=== PATIENT | male | born 1965 | race Caucasian/White ===

== ENCOUNTER → 2016-11-19 | Outpatient (CLI) | payer BC, OTHER ==
[~2016-11-19] MED LIST: ACET-1256 PO; LISI-729 PO; NAPR-1169 PO; OPTIRAY 320 IV PRN; SALM50AE2 INH
[2016-11-19 14:43] LABS: BASO % 0.6 %; BASO ABS # 0.05 K/uL (0-0.2); COMPLETE YES; HEMATOCRIT 42.3 % (42-52); IG% 0.3 %; LYMPH % 21.3 %; MEAN CORPUSCULAR HEMOGLOBIN 32.7 pg (25-34); MEAN CORPUSCULAR HGB CONC 35.9 g/dl (32-36); MEAN PLATELET VOLUME 9.5 fL (7.4-10.4); MONO % 7.6 %; NEUT % 68.2 %; PLATELET COUNT 247 K/uL (130-400); RED BLOOD COUNT 4.65 M/uL (4.7-6.1); WHITE BLOOD COUNT 8.91 K/uL (4.8-10.8)
[2016-11-19 15:08] LABS: ALT/SGPT 48 U/L (12-78); AST/SGOT 31 U/L (15-37); BLOOD UREA NITROGEN 16 mg/dl (7-18); BUN/CREATININE RATIO 14.4 (10-20); CALCIUM 8.7 mg/dl (8.5-10.1); CARBON DIOXIDE 30 mmol/L (21-32); CHLORIDE 104 mmol/L (98-107); GLUCOSE 104 mg/dl (70-99); POTASSIUM 3.7 mmol/L (3.5-5.1); SODIUM 140 mmol/L (136-145)
[2016-11-19 15:11] LABS: ALB/GLOB RATIO 1.3 (0.9-2); ALKALINE PHOSPHATASE 81 U/L (45-117)
--- NOTE | 2016-11-19 17:15 | DIAGNOSTIC IMAGING REPORT ---
CT SCAN OF THE ABDOMEN AND PELVIS WITH IV CONTRAST CLINICAL HISTORY: Hematochezia. COMPARISON STUDY: Chest CT dated 02/28/2011. TECHNIQUE: Following the IV administration of 94 cc of Optiray 320, CT scan of the abdomen and pelvis is performed from the lung bases to the proximal femora. Images are reviewed in the axial, sagittal, and coronal planes. IV contrast was administered without complication. Automated dose control exposure was utilized. CT DOSE: 499.89 mGy.cm FINDINGS: Lung bases: The heart is mildly enlarged and without pericardial effusion. Scarring and cyst rotation is noted at the left lung base. The lung bases are otherwise clear. There is a small hiatal hernia. Liver: The contrast-enhanced liver is enlarged, measuring 19.4 cm in length. The liver demonstrates diffusely diminished attenuation consistent with hepatic steatosis There is no intrahepatic biliary ductal dilatation. The hepatic veins and portal veins are patent. Gallbladder: Unremarkable. Spleen: Normal in size and attenuation. Pancreas: Unremarkable. Adrenal glands: Unremarkable. Kidneys: The contrast enhanced kidneys are normal in size and without hydronephrosis. The kidneys enhance symmetrically. There is a 5 mm nonobstructing calculus in the lower pole of the right kidney. Abdominal vasculature: The abdominal aorta is normal in course and caliber. Bowel: There is a long segment of wall thickening and edema identified involving the distal transverse colon and the descending colon. The appearance is typical for a nonspecific colitis. There is mild pericolonic inflammation and trace fluid. No bowel obstruction is seen. The appendix is not identified and reported surgically absent. Peritoneum: There is no intraperitoneal free air. There is trace free fluid in the pelvis. Lymphadenopathy: None. Pelvic viscera: The prostate gland is diminutive and heterogeneous, and contains coarse calcifications. The bladder is partially decompressed and grossly unremarkable. Skeletal structures: No lytic or blastic lesions are seen. There is mild lumbosacral spondylosis. IMPRESSION: 1. Findings are consistent with a nonspecific colitis of the left colon. This is likely on an infectious or inflammatory basis in this age group. 2. There is trace free fluid in the left paracolic gutter and the pelvis. 3. Hepatomegaly and hepatic steatosis. 4. Mild cardiomegaly. 5. Nonobstructing right renal calculus. 6. Additional changes as above. Electronically signed by: Sarwat Albarado M.D. 11/19/2016 5:14 PM Dictated Date/Time: 11/19/2016 5:08 PM
== END | disposition home or self-care (01) ==
LOC: C.CTS 14:06
PROVIDERS: ATTEND Nurse Practitioner
DX: K62.5 Hemorrhage of anus and rectum (principal); K76.0 Fatty (change of) liver, not elsewhere classified; N20.0 Calculus of kidney; R93.3 Abnormal findings on diagnostic imaging of other parts of digestive tract

== ENCOUNTER → 2017-01-16 | Day surgery (SDC) | payer BC, OTHER ==
[2017-01-10 14:56] VITALS: Ht 188 cm; Wt 93.2 kg
[~2017-01-16] VITALS: Ht 188 cm; Wt 93.2 kg
[~2017-01-16] MED LIST changes: -NAPR-1169 PO; -OPTIRAY 320 IV PRN; +SODIUM CHLORIDE 0.9% 500ML 500 ML IV ONE
[2017-01-16 11:27] VITALS: TEMP 36.8
--- NOTE | 2017-01-16 11:47 | Endo History and Physical ---
History & Physical Date of Service: Jan 16, 2017. Chief Complaint: Colitis Referring Physician: Lakeshia History of Present Illness 51 yo CM who presents for colonoscopy secondary to colitis. Past Medical History Asthma, Hypertension Past Surgical History Hx Cardiac Surgery: No Hx Internal Defibrillator: No Hx Pacemaker: No Hx Abdominal Surgery: Yes (APPENDECTOMY) Hx of Implantable Prosthesis: No Hx Post-Op Nausea and Vomiting: Yes (WITH BACK SURG 06/2016-[facility]) Hx Cancer Surgery: No Hx Thoracic Surgery: No Hx Orthopedic: Yes (L KNEE SCOPE,LUMBAR DISECTOMY) Hx Urinary Tract Surgery: Yes (SURG FOR UNDESCENDED TESTICLE AGE 8) Family History Polyp Social History Smoking Status: Never Smoker Hx Substance Use: No Hx Alcohol Use: No Allergies Coded Allergies: Aspirin (Verified Allergy, Unknown, SHORTNESS OF BREATH, 01/16/17) Codeine (Verified Allergy, Unknown, SHORTNESS OF BREATH, 01/16/17) Penicillins (Verified Allergy, Unknown, SHORTNESS OF BREATH, 01/16/17) Current Medications Reported Home Medications Medications Dose Route/Sig Max Daily Dose Days Date Category Tylenol (Acetaminophen) 500 Mg Tab 1,000 Mg PO PRN 01/10/17 Reported Zestril (Lisinopril) 5 Mg Tab 10 Mg PO QAM 09/26/15 Reported Serevent Diskus Inh (Salmeterol Xinafoate) Inh 1 Puff INH BID 02/28/11 Reported Vital Signs Weight (Kilograms): 93.18 Height (Feet): 6 Height (Inches): 2 Date Time Temp Pulse Resp B/P (MAP) Pulse Ox O2 Delivery O2 Flow Rate FiO2 01/16/17 11:27 36.8 64 18 134/86 (102) 96 Room Air Physical Exam General Appearance: WD/WN, no apparent distress Respiratory/Chest: Auscultation: breath sounds normal Cardiovascular: Heart Auscultation: RRR Abdomen: Bowel Sounds: normal Inspection & Palpation: soft, non-distended, no tenderness, guarding & rebound Assessment and Plan Assessment: 51 yo CM who presents for colonoscopy secondary to colitis. Plan: Proceed with colonoscopy.
--- NOTE | 2017-01-16 12:46 | Discharge Instructions ---
Endoscopy Patient Instructions Date / Procedure(s) Performed Jan 16, 2017. Colonoscopy Allergy Information Coded Allergies: Aspirin (Verified Allergy, Unknown, SHORTNESS OF BREATH, 01/16/17) Codeine (Verified Allergy, Unknown, SHORTNESS OF BREATH, 01/16/17) Penicillins (Verified Allergy, Unknown, SHORTNESS OF BREATH, 01/16/17) Discharge Date / Findings Jan 16, 2017. Internal hemorrhoids Medication Instructions OK to resume all medications today as prescribed Reported Home Medications Medications Dose Route/Sig Max Daily Dose Days Date Category Tylenol (Acetaminophen) 500 Mg Tab 1,000 Mg PO PRN 01/10/17 Reported Zestril (Lisinopril) 5 Mg Tab 10 Mg PO QAM 09/26/15 Reported Serevent Diskus Inh (Salmeterol Xinafoate) Inh 1 Puff INH BID 02/28/11 Reported Provider Instructions Activity Restrictions - No exercising or heavy lifting for 24 hours. - Do not drink alcohol the day of the procedure. - Do not drive a car or operate machinery until the day after the procedure. - Do not make any important decisions or sign important papers in 24 hours after the procedure. Following Day: - Return to full activity which may include returning to work/school. Diet Start your diet with liquids and light foods (jello, soup, juice, toast). Then eat your usual diet if not nauseated. Treatment For Common After Affects For mild abdominal pain, bloating, or excessive gas: - Rest - Eat lightly - Lie on right side Follow-Up Information Follow-up with Lakeshia as scheduled Anesthesia Information What You Should Know You have had a procedure that required some medicine to reduce anxiety and discomfort. This treatment is called moderate sedation. After receiving the treatment, you may be sleepy, but you will be able to breathe on your own. The effects of the treatment may last for several hours. Follow these instructions along with Activity/Diet recommendations noted above: * Do NOT do anything where dizziness or clumsiness would be dangerous. * Rest quietly at home today, then you can be up and about tomorrow. * Have a responsible person stay with you the rest of today. * You may have had an I.V. today. If so, you may take the dressing off later today. Recommendations Call your doctor if: * Trouble breathing * Continuous vomiting for more than 24 hours * Temperature above 101 degrees * Severe abdominal pain or bloating * Pain not relieved by pain medicine ordered * There is increased drainage or redness from any incision * A large amount of rectal bleeding greater than 2-3 tablespoons. (If you had a polyp/s removed or have hemorrhoids, a small amount of blood - from the rectum is to be expected.) * You have any unanswered questions or concerns. IN THE EVENT OF A SERIOUS EMERGENCY, GO TO THE NEAREST EMERGENCY ROOM Your discharge instructions were prepared by provider Max Garrido. Patient Instructions Signature Page Josh Payton Patient (or Guardian) Signature/Date: I have read and understand the instructions given to me by my caregivers. Caregiver/RN/Doctor Signature/Date: The above-named patient and/or guardian has received patient instructions on this date. + Original Patient Signature Page (only) stays with chart. Please make copy for patient.
--- NOTE | 2017-01-16 12:48 | Anesthesiology Progress Note ---
Anesthesia Post Op Note Date & Time Jan 16, 2017 at 12:47 Vital Signs Pain Intensity: 0 Vital Signs Past 12 Hours Date Time Temp Pulse Resp B/P (MAP) Pulse Ox O2 Delivery O2 Flow Rate FiO2 01/16/17 11:27 36.8 64 18 134/86 (102) 96 Room Air Notes Mental Status: alert / awake / arousable, participated in evaluation Pt Amnestic to Procedure: Yes Nausea / Vomiting: adequately controlled Pain: adequately controlled Airway Patency, RR, SpO2: stable & adequate BP & HR: stable & adequate Hydration State: stable & adequate Anesthetic Complications: no major complications apparent
[2017-01-16 13:15] VITALS: BP 127/75; PULSE 57; O2SAT 97
--- NOTE | 2017-01-16 13:15 | GI REPORT ---
Procedure Date: 01/16/2017 12:20 PM Procedure: Colonoscopy Indications: Follow-up of colitis Medicines: Monitored Anesthesia Care Complications: No immediate complications. Estimated Blood Loss: Estimated blood loss: none. Procedure: Pre-Anesthesia Assessment: - Prior to the procedure, a History and Physical was performed, and patient medications and allergies were reviewed. The patient's tolerance of previous anesthesia was also reviewed. The risks and benefits of the procedure and the sedation options and risks were discussed with the patient. All questions were answered, and informed consent was obtained. Prior Anticoagulants: The patient has taken no previous anticoagulant or antiplatelet agents. ASA Grade Assessment: II - A patient with mild systemic disease. After reviewing the risks and benefits, the patient was deemed in satisfactory condition to undergo the procedure. After I obtained informed consent, the scope was passed under direct vision. Throughout the procedure, the patient's blood pressure, pulse, and oxygen saturations were monitored continuously. The scope was introduced through the anus and advanced to the terminal ileum. The colonoscopy was performed without difficulty. The patient tolerated the procedure well. The quality of the bowel preparation was good. The terminal ileum, ileocecal valve, appendiceal orifice, and rectum were photographed. Findings: Non-bleeding internal hemorrhoids were found during retroflexion. The hemorrhoids were small. The exam was otherwise without abnormality. Impression: - Non-bleeding internal hemorrhoids. - The examination was otherwise normal. - No specimens collected. Recommendation: - Resume previous diet. - Continue present medications. - Repeat colonoscopy in 10 years for surveillance. - Return to primary care physician as previously scheduled. Max Garrido DO 01/16/2017 1:14:17 PM This report has been signed electronically. Note Initiated On: 01/16/2017 12:20 PM I attest to the content of the Intraoperative Record and orders documented therein, exceptions below
== END | disposition home or self-care (01) ==
LOC: C.GI 10:45
PROVIDERS: ATTEND Internal Medicine
DX: Z09 Encounter for follow-up examination after completed treatment for conditions other than malignant neoplasm (principal); K52.9 Noninfective gastroenteritis and colitis, unspecified; K64.8 Other hemorrhoids; Z83.71 Family history of colonic polyps; J45.909 Unspecified asthma, uncomplicated; I10 Essential (primary) hypertension; Z88.5 Allergy status to narcotic agent; Z88.0 Allergy status to penicillin; Z90.89 Acquired absence of other organs; Z98.890 Other specified postprocedural states; Z68.26 Body mass index [BMI] 26.0-26.9, adult

== ENCOUNTER → 2017-07-29 | Outpatient (CLI) | payer BC, OTHER ==
[~2017-07-29] MED LIST changes: -SODIUM CHLORIDE 0.9% 500ML 500 ML IV ONE
== END | disposition home or self-care (01) ==
LOC: C.LABBFT 08:41
PROVIDERS: ATTEND Internal Medicine
DX: T14.8XXA Other injury of unspecified body region, initial encounter (principal); W57.XXXA Bitten or stung by nonvenomous insect and other nonvenomous arthropods, initial encounter

== ENCOUNTER 2024-08-29 08:01 | Inpatient (IN) ==
--- OUTSIDE RECORDS SUMMARY | 2024-08-29 08:05 | External Medical Summary | Summary of Care ---
Author Name Unknown Organization [facility] Address [address] [place] [address] Phone [phone] Care Team Providers Care Emergency Department Director Name Role Phone Lakeshia GILMORE MD, Josh Belle Primary Care Pr ovider Encounter Details Date Type Department Care Team (Latest Contact Info) Description 08/13/2024 9:42 AM EST - 08/13/2024 11:59 PM EST Hospital Encounter Radiology Film File [address] [place] [address] Arrived Discharge Disposition: Home - Self Care Allergies Active Allergy Reactions Criticality Noted Date Comments Codeine Anaphylaxis High 02/18/2020 Penicillins Anaphylaxis High 02/18/2020 documented as of this encounter (statuses as of 08/14/2024) Medications salmeterol xinafoate (SEREVENT DISKUS) 50 MCG/DOSE diskus inhaler Inhale 1 Puff by mouth in the morning and 1 Puff before bedtime. Active acetaminophen (TYLENOL) 500 MG Tablet Take 1 Tablet by mouth every 6 hours as needed. Active Naproxen 500 MG Oral Tablet (NAPROSYN) TAKE 1 TAB BY MOUTH 2 TIMES A DAY WITH FOOD 60 Tab 0 Active Additional Information Patient not taking.Reported on 08/13/2024 predniSONE 10 MG Oral Tablet (Deltasone) Take 4 tablets a day for 3 days. Then 3 tablets a day for 3 days. Then 2 tablets a day for 3 days. Then 1 tablet a day for 3 days. 30 Tab 1 Active Additional Information Patient not taking.Reported on 08/13/2024 Rosuvastatin Calcium 10 MG Oral Tablet (Crestor) Take 1 Tablet by mouth. Active Olmesartan Medoxomil 5 MG Oral Tablet (Benicar) 4 Active documented as of this encounter (statuses as of 08/14/2024) Active Problems No known active problems documented as of this encounter (statuses as of 08/14/2024) Social History Tobacco Use Types Packs/Day Years Used Date Smoking Tobacco: Never Smokeless Tobacco: Never Alcohol Use Standard Drinks/Week Comments Not Currently 0 (1 standard drink = 0.6 oz pur e alcohol) Sex and Gender Information Value Date Recorded Sex Assigned at Not on file Legal Sex Male 5:02 AM EST Gender Identity Not on file Sexual Orientation Not on file documented as of this encounter Plan of Treatment Upcoming Encounters Date Type Department Care Team (Late st Contact Info) Description 06/15/2025 8:20 AM EST Office Visit Dermatology, Abhay Galvan [address] [id number] Enedelia Santana PA-C [address] [address] Health Maintenance Due Date Last Done Comments Lipid Panel 1965 Depression Screening 1977 HIV Screening 02/04/1980 Hepatitis C Screening 1983 DTap/Tdap Vaccines (1 - Tdap) 02/04/1984 Hepatitis B Vaccine (1 of 3 - 19+ 3-dose series) 02/04/1984 Cologuard 2010 Colonoscopy 2010 Colorectal Cancer Screening 2010 Fecal Occult Blood Test 2010 Sigmoidoscopy 2010 Pneumococcal Vaccine: 50+ Years (2 of 2 - PCV) 2015 05/28/2011 Zoster Vaccines (1 of 2) 2015 COVID-19 Vaccine (3 - 2023- season) 2024 11/03/2020, 10/13/2020 Influenza Vaccine (FLU shot) (#1) 2024 04/25/2018, 05/27/2017, 05/07/2016, Additional history exists HPV (Gardasil) Vaccine Aged Out No lo nger eligible based on patient's age to complete this topic MENINGOCOCCAL (MENACTRA/MENVEO) Aged Out No longer eligible based on patient's age to complete this topic documented as of this encounter Medical Devices Not on filedocumented as of this encounter Procedures Procedure Name Priority Date/Time Associated Diagnosis Comments DERM EXAM - DERM (IMAGES ONLY, NO REPORT) Routine 08/13/2024 9:42 AM EST Hx of nonmelanoma skin cancer Seborrheic keratosis documented in this encounter Results * DERM EXAM - DERM (IMAGES ONLY, NO REPORT) (08/13/2024 9:42 AM EST) Narrative Scheduling, Silent - 08/13/2024 9:42 AM EST This is an imaging study not interpreted or resulted by a [facility] or [facility] contracted radiologist. Enedelia Santana PA-C RADIOLOGY (RAD GENERAL) Final Result documented in this encounter Care Teams Emergency Department Director Relationship Specialty Start Date End Date Josh Asher III, MD [address] [place] [address] PCP - General Internal Medicine 02/18/20 documented as of this encounter
--- OUTSIDE RECORDS SUMMARY | 2024-08-29 08:05 | External Medical Summary | Summary of Care ---
Author Name Unknown Organization [facility] Address [address] [place] [address] Phone [phone] Care Team Providers Care Assurance Officer Name Role Phone Lakeshia GILMORE MD, Josh Belle Primary Care Pr ovider Reason for Referral * Evaluate & Treat - Unlimited Visits (Within 24 hrs (call dept; emergent)) - Authorized Specialty Diagnoses / Procedures Referred By Stanton israel Referred To Contact Dermatology Diagnoses Basal cell carcinoma of skin, unspecified Ashly Cloud PA-C [address] [address] Phone: tel: fax: Referral ID Status Reason Start Date Expiration Date Visits Requested Visits Authorized [id number] Authorized Specialty Services Required 08/10/[phone] Question Answer Referral Priority Within 24 hrs (call dept; emergent) Where should this appointment be scheduled? [facility] Are you referring the patient for Mohs Surgery and have a current positive skin cancer biopsy result? No - Unknown What is the reason for the patient referral? Rash/Skin Check/Eval of Lesion or Mole Comments BCC of skin Encounter Details Date Type Department Care Team (Late st Contact Info) Description 08/10/2024 Orders Only [facility] [place], [place] [address] [place] [address] Ext *DO NOT REMOVE THIS DEPARTMENT* [place] [id number] Request, External Referral Basal cell carcinoma of skin, unspecified* Allergies Active Allergy Reactions Criticality Noted Date Comments Codeine Anaphylaxis High 02/18/2020 Penicillins Anaphylaxis High 02/18/2020 documented as of this encounter (statuses as of 08/10/2024) Medications salmeterol xinafoate (SEREVENT DISKUS) 50 MCG/DOSE diskus inhaler Inhale 1 Puff by mouth 2 times a day. Active acetaminophen (TYLENOL) 500 MG Tablet Take 500 mg by mouth every 6 hours as needed. Active Naproxen 500 MG Oral Tablet (NAPROSYN) TAKE 1 TAB BY MOUTH 2 TIMES A DAY WITH FOOD 60 Tab 04/11/2020 Active predniSONE 10 MG Oral Tablet (Deltasone) Take 4 tablets a day for 3 days. Then 3 tablets a day for 3 days. Then 2 tablets a day for 3 days. Then 1 tablet a day for 3 days. 30 Tab 09/27/2020 Active documented as of this encounter (statuses as of 08/10/2024) Active Problems No known active problems documented as of this encounter (statuses as of 08/10/2024) Social History Tobacco Use Types Packs/Day Years Used Date Smoking Tobacco: Never Smokeless Tobacco: Never Alcohol Use Standard Drinks/Week Comments Not Currently 0 (1 standard drink = 0.6 oz pur e alcohol) Utilities Answer Date Recorded Do you have trouble paying y our heating, water, or electric bill? (Adult - for ages 18 years and over) Not on file 01/07/2024 Is your family able to pay t he heat, water, or electric bill? (Household - for ages 0-17 years) Not on file 01/07/2024 Does your family have access to good internet? (Household - for ages 0-17 years) Not on file 01/07/2024 Social Connections Answer Date Recorded How often do you feel lonely or isolated from those around you? (Adult - for ages 18 years and over) Not on file 01/07/2024 Sex and Gender Information Value Date Recorded Sex Assigned at Not on file Legal Sex Male 5:02 AM EST Gender Identity Not on file Sexual Orientation Not on file documented as of this encounter Plan of Treatment Scheduled Referrals Name Type Priority Associated Diagnoses Orde r Schedule DERMATOLOGY REFERRAL OP Referral Within 24 hrs (call dept; emergent) Basal cell carcinoma of skin, unspecified Ordered: 08/10/2024 Health Maintenance Due Date Last Done Comments [...] Vaccines (1 of 2) 2015 COVID-19 Vaccine (1 - season) 2024 Influenza Vaccine (FLU shot) (#1) 2024 04/25/2018, 05/27/2017, 05/07/2016, Additional history exists HPV (Gardasil) Vaccine Aged Out No lo nger eligible based on patient's age to complete this topic MENINGOCOCCAL (MENACTRA/MENVEO) Aged Out No longer eligible based on patient's age to complete this topic documented as of this encounter Medical Devices Not on filedocumented as of this encounter Visit Diagnoses Diagnosis Basal cell carcinoma of skin, unspecified- Primary documented in this encounter Care Teams Assurance Officer Relationship Specialty Start Date End Date Josh Asher III, MD PCP - General Internal Medicine 02/18/20 documented as of this encounter
--- OUTSIDE RECORDS SUMMARY | 2024-08-29 08:05 | External Medical Summary | Summary of Care ---
Author Name Unknown Organization [facility] Address [address] [facility] [address] Phone [phone] Care Team Providers Care Engagement Liaison Name Role Phone Lakeshia GILMORE MD, Josh Belle Primary Care Pr ovider Reason for Visit * Reason Comments NEW PATIENT HX BCC behind left e ar - was to have Mohs but did not have it yet? * Evaluate & Treat - Unlimited Visits (Within 24 hrs (call dept; emergent)) - Authorized Specialty Diagnoses / Procedures Referred By Stanton israel Referred To Contact Dermatology Diagnoses Basal cell carcinoma of skin, unspecified Shane Cloud PA-C [address] [facility] [address] [place] [address] Phone: tel: fax: Referral ID Status Reason Start Date Expiration Date Visits Requested Visits Authorized [id number] Authorized Specialty Services Required 08/10/[id number] Encounter Details Date Type Department Care Team (Late st Contact Info) Description 08/13/2024 9:20 AM EST Office Visit Dermatology, Abhay Galvan [address] [facility] [address] [place] [id number] Enedelia Santana PA-C [address] [place] [phone] Hx of nonmelanoma skin cancer*; Seborrheic keratosis Allergies Active Allergy Reactions Criticality Noted Date Comments Codeine Anaphylaxis High 02/18/2020 Penicillins Anaphylaxis High 02/18/2020 documented as of this encounter (statuses as of 08/13/2024) Medications salmeterol xinafoate (SEREVENT DISKUS) 50 MCG/DOSE [...] as of this encounter (statuses as of 08/13/2024) Active Problems No known active problems documented as of this encounter (statuses as of 08/13/2024) Social History Tobacco Use Types Packs/Day Years [...] on file documented as of this encounter Progress Notes * Enedelia Santana PA-C - 08/13/2024 9:16 AM EST SUBJECTIVE: CC: HX BCC behind left ear - was to have Mohs but did not have it yet? HPI: Josh Payton is a 59 year old male seen at the request of Shane Cloud PA-C for evaluation and treatment of BCC behind L ear. Referred by [facility]NT [facility]. 06/23/2024 excision post auricular lesion with Dr. Osborn. Per note pathology revealed nodulocystic and micronodular BCC extending to inked lateral margin. He healed beautifully. He has no other concerns today but agreeable to waist up skin exam. DERMATOLOGIC HISTORY: Reviewed previous office notes and relevant surgical pathology: History of skin disorders: Hx poroma L neck excision 02/2024 ENT History of skin cancer: Hx BCC L post auricular region- Excision ENT with +lateral margin 06/2024 REVIEW OF SYSTEMS: See HPI- all other findings negative Constitutional: (-) fever, chills, sweats, weight loss Cardiovascular: (-) lower extremity edema Skin: (-) no rash or new or changing moles or skin lesions Past Medical History: Diagnosis Date Asthma Spine pain, lumbar There is no problem list on file for this patient. SOCIAL HISTORY: Social History Tobacco Use Smoking status: Never Smokeless tobacco: Never Substance Use Topics Alcohol use: Not Currently Vaping/E-Cigarette Use Vaping/E-Cigarette Use Never User Vaping/E-Cigarette Substances Nicotine No Other No Flavoring No THC No Cannabidiol (CBD) No Vaping/E-Cigarette Devices Disposable No Pre-filled or Refillable Cartridge No Refillable Tank No Pre-filled Pod No MEDICA TIONS: Current Outpatient Medications Medication Sig Dispense Refill salmeterol xinafoate (SEREVENT DISKUS) 50 MCG/DOSE diskus inhaler Inhale 1 Puff by mouth in the morning and 1 Puff before bedtime. acetaminophen (TYLENOL) 500 MG Tablet Take 1 Tablet by mouth every 6 hours as needed. Rosuvastatin Calcium 10 MG Oral Tablet (Crestor) Take 1 Tablet by mouth. Olmesartan Medoxomil 5 MG Oral Tablet (Benicar) Naproxen 500 MG Oral Tablet (NAPROSYN) TAKE 1 TAB BY MOUTH 2 TIMES A DAY WITH FOOD (Patient not taking: Reported on 08/13/2024) 60 Tab 0 predniSONE 10 MG Oral Tablet (Deltasone) Take 4 tablets a day for 3 days. Then 3 tablets a day for 3 days. Then 2 tablets a day for 3 days. Then 1 tablet a day for 3 days. (Patient not taking: Reported on 08/13/2024) 30 Tab 0 No current facility-administered medications for this visit. ALLERG IES: Codeine and Penicillins OBJECTIVE: GEN: Healthy, alert, no distress, appears oriented, pleasant, and cooperative. PSYCH: Appropriate mood and affect, alert SKIN: Detailed exam of scalp, hair, face including lids and lips, ears, neck, chest, back, abdomen,bilateral upper extremities was completed and are within normal limits with the following exceptions: 1. Scar on L post auricular region 2. Multiple stuck-on, brown to skin colored papules scattered on face, trunk and extremities ASSESS MENT/PLAN: Hx BCC s/p excision ENT -Well healed without evidence of recurrence. Will discuss with Mohs surgeon to see if further Mohs is warranted or if we just monitor for recurrence. He would prefer to monitor if possible as he had to be put under for the first excision and doesn't really want to cut any further if he doesn't haveto. Assured him I will discuss with Mohs surgeon and then get back to him. 2. Seborrheic Keratoses -Reassured of the benign nature of lesion -Discussed with patient that they may get more of these lesions in the future -If there are any lesions that become irritated, bleed, or painful to return to clinic for evaluation -No current treatment necessary at this time Patient alone today. Follow-up: 9 months Photos taken 1-5, patient consented to photos. Contact patient via home or cell phone Patient Phone Numbers Applicable photos (if any) and chart reviewed by Dr. Juan C Herrera The patient was encouraged to contact me with any further questions or concerns. Enedelia Santana PA-C 08/13/2024 9:16 AM REF: SHANE CLOUD [address] [address] (office) [phone] (fax) documented in this encounter Nursing Notes * Magalis Shen LPN - 08/13/2024 9:14 AM EST Chief Complaint Patient presents with NEW PATIENT HX BCC behind left ear - was to have Mohs but did not have it yet? documented in this encounter Plan of Treatment Upcoming Encounters Date Type Department Care Team (Late st Contact Info) Description 06/15/2025 8:20 AM EST Office Visit Dermatology, Abhay Galvan [address] [place] [phone] Enedelia Santana PA-C [address] [address] Health Maintenance Due Date Last Done Comments [...] interpreted or resulted by a [facility] or [employer] contracted radiologist. Enedelia Santana PA-C RADIOLOGY ([facility]) Final Result documented in this encounter Visit Diagnoses Diagnosis Hx of nonmelanoma skin cancer- Primary Personal history of other malignant neoplasm of skin Seborrheic keratosis Other seborrheic keratosis documented in this encounter Care Teams Engagement Liaison Relationship Specialty Start Date End Date Lakeshia GILMORE, Josh Belle MD [facility] [place] [address] [address] PCP - General Internal Medicine 02/18/20 documented as of this encounter
--- OUTSIDE RECORDS SUMMARY | 2024-08-29 08:05 | External Medical Summary | Summary of Care ---
Author Name Unknown Organization [facility] Address [address] [facility] [address] Phone [phone] Care Team Providers Care Case Reviewer Name Role Phone Lakeshia GILMORE MD, Josh [...] skin, unspecified Shane Cloud PA-C [address] [facility] [address] [place] [address] Phone: tel: fax: Referral ID Status Reason Start Date Expiration Date Visits Requested Visits Authorized [id number] Authorized Specialty Services Required 08/10/[phone] Encounter Details Date Type Department Care Team (Late st Contact Info) Description 08/13/2024 9:20 AM EST Office Visit Dermatology, Abhay Galvan [address] [facility] [address] [address] Enedelia Santana PA-C [address] [address] Hx of nonmelanoma skin cancer*; Seborrheic keratosis [...] as of this encounter Progress Notes * Piyush Herrera MD - 08/13/2024 9:20 AM EST I have reviewed the relevant notes and photographs taken by NILA Benites. I have reviewed and agree with the assessment and plan. Agree with getting Mohs input on observation vs Mohs now Piyush Herrera MD * Enedelia Santana PA-C - 08/13/2024 9:16 [...] Enedelia Santana PA-C 08/13/2024 9:16 AM REF: LUTHER CLOUDSSSHERIN GARCIA [address] [address] (office) [phone] (fax) documented in this encounter Nursing Notes [...] Visit Dermatology, Abhay Galvan [address] [facility] [address] [address] Enedelia Santana PA-C [address] [address] Health Maintenance Due Date Last Done Comments [...] interpreted or resulted by a [facility] or [facility] contracted radiologist. Enedelia Santana PA-C RADIOLOGY ([facility]) Final Result documented in this encounter Visit Diagnoses Diagnosis Hx of nonmelanoma skin cancer- Primary Personal history of other malignant neoplasm of skin Seborrheic keratosis Other seborrheic keratosis documented in this encounter Care Teams Case Reviewer Relationship Specialty Start Date End Date Josh Asher III, MD [address] [place] [address] [address] PCP - General Internal Medicine 02/18/20 documented as of this encounter
[2024-08-29] MEDS: ADENOSINE IV SOLN 3 MG/ML 2 ML VIAL IV STA ×3 (08:20→08:31)
[2024-08-29] MEDS: dilTIAZem HCl 5 MG/ML 5 ML VIAL IV STA (08:43)
[2024-08-29] MEDS: SODIUM CHLORIDE 0.9% 1,000 ML IV ONE (08:44)
[2024-08-29] MEDS: ADENOSINE IV SOLN 3 MG/ML 2 ML VIAL IV ONE ×2 (08:46→08:47)
[2024-08-29 08:50] LABS: Basophils # (auto) 0.04 K/uL (0.00-0.20); Basophils % (auto) 0.6 %; Eosinophils # (auto) 0.18 K/uL (0.00-0.50); Eosinophils % (auto) 2.7 %; Hematocrit (blood only) 45.5 % (42.0-52.0); Hemoglobin 15.9 g/dl (14.0-18.0); Immature Granulocytes # (auto) 0.02 K/uL (0.01-0.20); Immature Granulocytes % (auto) 0.3 %; Lymphocytes # (auto) 2.15 K/uL (1.20-3.40); Lymphocytes % (auto) 31.8 %; Mean Corpuscular Hemoglobin 32.1 pg (25.0-34.0); Mean Corpuscular Hgb Conc 34.9 g/dL (32.0-36.0); Mean Corpuscular Volume 91.9 fL (80.0-100.0); Mean Platelet Volume 10.6 fL (9.4-12.4); Monocytes # (auto) 0.54 K/uL (0.11-0.59); Neutrophils # (auto) 3.83 K/uL (1.40-6.50); Neutrophils % (auto) 56.6 %; Platelet Count 216 K/uL (130-400); RDW Coefficient of Variation 12.8 % (11.5-14.5); Red Blood Count 4.95 M/uL (4.70-6.10); White Blood Count 6.76 K/ul (4.8-10.8)
[2024-08-29] MEDS: SODIUM CHLORIDE 0.9% 1,000 ML IV SCH (09:01)
[2024-08-29 09:02] LABS: Albumin Globulin Ratio 1.7 (0.9-2); Albumin Level 4.5 gm/dl (3.4-5.0); BUN Creatinine Ratio 19.5 (10-20); Bilirubin,Total 0.6 mg/dl (0.2-1.0); Calcium 9.3 mg/dl (8.6-10.3); Creatinine Clr Calc Pharmacy 81.8 ml/min; Globulin 2.7 gm/dl (2.5-4.0); Magnesium 1.9 mg/dl (1.7-2.4); Total Protein 7.2 gm/dl (6.0-8.3)
[2024-08-29] MEDS: dilTIAZem HCL 125 MG in DEXTROSE 5% 100 ML IV SCH (09:06)
[2024-08-29 09:12] LABS: iSTAT Creatinine 0.9 mg/dl (0.6-1.3); iSTAT Hemoglobin 14.6 g/dl (14.0-18.0); iSTAT Ionized Calcium 1.13 mmol/l (1.12-1.32); iSTAT Potassium 4.1 mmol/L (3.3-5.0)
[2024-08-29 09:16] LABS: Thyroid Stimulating Hormone 2.705 uIu/ml (0.300-4.500)
--- NOTE | 2024-08-29 09:39 | XRay Report ---
XR chest 1V portable HISTORY: 59 years-old Male svt acute chest pain or shortness of breath COMPARISON: 06/27/2012 TECHNIQUE: AP view of the chest FINDINGS: Mild bilateral reticular nodular densities, right greater than left. No pneumothorax, pleural effusio n or pulmonary edema. Mild linear bibasilar densities. Bones appear grossly intact. IMPRESSION: 1. Bibasilar reticular nodular densities, likely infectious or inflammatory. 2. Mild bibasilar atelectasis. ACT 112: Negative or not required by law. The above report was generated using voice recognition software. It may contain grammatical, syntax o r spelling errors. Electronically signed by: Junior Valencia M.D. 08/29/2024 9:37 AM
[2024-08-29] MEDS: MAGNESIUM SULFATE / D5W 1 GM/100 ML BAG IV STA (10:33)
[2024-08-29] MEDS ORDERED: ACETAMINOPHEN 325 MG TAB PO PRN (11:49)
--- NOTE | 2024-08-29 11:52 | History & Physical Report ---
Date of Service August 29, 2024 Assessment & Plan (1) SVT (supraventricular tachycardia): (2) Elevated troponin: (3) Diabetes mellitus: Plan This is a 57 year old gentleman with past medical history of hypertension, hyperlipidemia, asthma, and recently diagnosed type 2 diabetes who presented to the ED on 08/29/2024 with a chief complaint of tachycardia. #SVT Patient presented to ED w/ heart fluttering, found to be in SVT per EKG in ED s/p Adenosine x 3, Diltiazem x 1, and Diltiazem drip started then stopped Patient currently in normal sinus rhythm, asymptomatic Troponin 32 --> 520.5, repeat pending Echo read pending Cardiology consulted, appreciate recommendations. #Diabetes Recently diagnosed per recent PCP visit. A1c as of 06/25/2024 - 6.5% Diet controlled currently Hold off SSI - BG 139 on admission. Carb consistent Diet If BG rises, may need to consider insulin therapy while inpatient and outpatient PO regimen as well. updated at bedside. Case discussed w/ Dr. Longoria Case discussed w/ Dr. Enrique at time of admission. History of Present Illness Primary Care Provider: Noe Gallegos, This is a 57 year old gentleman with past medical history of hypertension, hyperlipidemia, asthma, and recently diagnosed type 2 diabetes who presented to the ED on 08/29/2024 with a chief complaint of tachycardia. Patient reports he woke up this morning, took his regular medications and inhaler then laid back down. He then woke up around 7 am this morning and felt his heart racing. He denied chest pain but did admit to neck stiffness. He reports he has no history of neck stiffness. He reports that he had a similar episode about a week ago in which he felt his heart was racing but then this sy mptoms subsided in a very short amount of time. He denies any SOB. Denies lower extermity edema. Denies nausea/vomiting, abdominal pain. denies any urinary symptoms. While in the ED, he was found to be in SVT per his EKG. He was given adenosine and Cardizem. He was started on a Cardizem drip but this was then stopped as his rate was well controlled in the 80s. An echocardiogram is pending. He had a troponin of 32 which then increased to 520.5. His TSH was WNL. Cardiology was consulted and recommendations are pending. Code discussion with patient took place and he is a full code. Allergies Allergy/AdvReac Type Severity Reaction Status Date / Time aspirin Allergy Severe Shortness Verified 08/29/24 10:45 of Breath codeine Allergy Severe Shortness Verified 08/29/24 10:45 of Breath Penicillins Allergy Severe Shortness Verified 08/29/24 10:45 of Breath Home Medications Medication Instructions Recorded Confirmed Type olmesartan 5 mg tablet 5 mg PO QAM 06/12/24 08/29/24 History rosuvastatin 10 mg tablet 10 mg PO QAM 06/12/24 08/29/24 History salmeterol 50 mcg/dose blister 1 inh inhalation BID #180 ea 06/25/24 08/29/24 Rx powder for inhalation (Serevent Diskus) Past Med/Surg History Problem List (Updated 08/29/24 @ 22:16 by Neeraj Longoria MD) Dyspnea on exertion Cardiomyopathy Abnormal ECG (Acute) Elevated troponin (Acute) Elevated troponin SVT (supraventricular tachycardia) (Acute) Basal cell carcinoma Diabetes mellitus S/P excision of skin lesion, follow-up exam Asthma (Acute) Hyperlipidemia (Acute) Hypertension (Acute) Lumbar disc disease (Acute) Medical History Encounter for pre-operative examination Skin lesion of neck Pre-diabetes HERRERA-inhibitor cough PONV (postoperative nausea and vomiting) Skin lesion of neck Pre-diabetes Hypertension Hyperlipidemia Asthma Surgical History (Updated 07/01/24 @ 15:15 by Joan Ponce) Hx of arthroscopy of left knee Hx of colonoscopy (2017) History of surgery Excision of Left Neck Lesion, 04/02/2024 - Dr. Osborn. Done in clinic under local anesthesia 06/23/24-Removal of left-sided post auricular lesion-Dr. 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 History of back surgery Lumbar History of appendectomy Family History Uncle Coronary heart disease Aunt Coronary heart disease Father Coronary heart disease Diabetes Hypertension Social History Smoking Status: Never smoker Second Hand Exposure: No; Do You Dip or Chew Tobacco: No; Hx Alcohol Use: No Hx Substance Use: No Preferred Language: Czech Communication Ability: Effective Regional Economic Liaison Required: No Beliefs That Will Affect Care: None marital status: Current Living Situation: Spouse current occupational status: employed current occupation: [employer] How many Children do You have: 3 Feels Safe at Home: Yes Safety Concerns: Feels Safe At This Time Childhood Exposure to Second-Hand Smoke: No Diet: regular caffeine: Yes Dental Care, Regularly: No Physical Activity Frequency: Daily Seatbelt Use: always Sunscreen Use: No Assistive Devices: Glasses Physical Exam Constitutional: WD/WN, vitals as above Eyes: PERRL, conjunctivae normal, anicteric sclerae Respiratory: normal respiratory effort, lungs clear to auscultation Cardiovascular: RRR, no murmur, no edema Musculoskeletal: moves all extremities Psychiatric: A+Ox3, euthymic affect Results & Data Results & Data Vital Signs (Past 12 Hours) Vital Signs Temp Pulse Pulse Resp BP BP Pulse Ox 08/29/24 10:05 106/67 08/29/24 09:42 81 14 118/73 93 08/29/24 09:36 80 14 111/81 92 08/29/24 09:24 81 12 115/79 93 08/29/24 09:21 84 14 112/84 93 08/29/24 09:18 90 20 96 08/29/24 09:16 118/87 08/29/24 09:15 85 20 136/93 94 08/29/24 09:11 125/88 08/29/24 09:09 90 18 96 08/29/24 09:06 135/86 08/29/24 08:59 104 H 08/29/24 08:58 177 H 08/29/24 08:54 175 H 16 97 08/29/24 08:50 112/82 08/29/24 08:48 189 H 20 112/82 97 08/29/24 08:48 98 08/29/24 08:40 117/79 08/29/24 08:16 204 H 08/29/24 08:05 36.6 C 125 H 20 113/75 100 O2 Del Method 08/29/24 10:05 08/29/24 09:42 Room Air 08/29/24 09:36 Room Air 08/29/24 09:24 Room Air 08/29/24 09:21 Room Air 08/29/24 09:18 Room Air 08/29/24 09:16 08/29/24 09:15 Room Air 08/29/24 09:11 08/29/24 09:09 Room Air 08/29/24 09:06 08/29/24 08:59 08/29/24 08:58 08/29/24 08:54 Room Air 08/29/24 08:50 08/29/24 08:48 Room Air 08/29/24 08:48 08/29/24 08:40 08/29/24 08:16 08/29/24 08:05 Room Air Code Status & VTE Plan VTE Prophylaxis Plan VTE Prophylaxis will be ordered: Yes Supervising Physician Co-Signing Physician Notes I personally saw and examined the patient. I independently reviewed the labs, EKG, imaging, problem list, medication list, past medical history and family history. I verified all head points and agree with Ilda Glasgow PA-C with the following exceptions and/or additions: 59 year old male presents to the ER with elevated HR and neck pain. Currently pain free now back in NSR after failed adenosine but push of diltiazem given. O/E HS RRR, no murmurs, Chest CTAB, Abdo SNT, no pedal edema A/P SVT - resolved, patient chest pain free following this. Start metoprolol succinate after discussion with Dr Haq and will monitor for worsening or harder to control asthma. Agree with cardiology to avoid diltiazem with reduced EF. Elevated troponin - prior aspirin allergy triggering asthma attack therefore will hold off on this as no coronary artery disease with echo LVEF reduced but without wall motion abnormalities. I suspect a trial of this is not unreasonable but after discussion with cardiology will favor Asthma - no exacerbation but unclear why only on LABA monotherapy, this should be considered to be changed at some point but given we are starting metoprolol will hold off on this change while monitor for worsening breathing with metoprolol. 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
[2024-08-29 13:37] LABS: Adenovirus PCR Not Detected (NotDetected); Bordetella parapertussis PCR Not Detected (NotDetected); Bordetella pertussis PCR Not Detected (NotDetected); Chlamydia pneumoniae PCR Not Detected (NotDetected); Coronavirus 229E PCR Not Detected (NotDetected); Coronavirus CoV-2 (COVID19)PCR Not Detected (NotDetected); Coronavirus HKU1 PCR Not Detected (NotDetected); Coronavirus NL63 PCR Not Detected (NotDetected); Coronavirus OC43PCR Not Detected (NotDetected); Human Metapneumovirus PCR Not Detected (NotDetected); Influenza A PCR Not Detected (NotDetected); Influenza B PCR Not Detected (NotDetected); Mycoplasma pneumoniae PCR Not Detected (NotDetected); Parainfluenza Virus 1 PCR Not Detected (NotDetected); Parainfluenza Virus 2 PCR Not Detected (NotDetected); Parainfluenza Virus 3 PCR Not Detected (NotDetected); Parainfluenza Virus 4 PCR Not Detected (NotDetected); Respiratory Syncytial VirusPCR Not Detected (NotDetected); Rhinovirus/Enterovirus PCR Not Detected (NotDetected)
--- NOTE | 2024-08-29 14:43 | XCELERA ---
[id number] \\[email or web address]\[id number]
--- NOTE | 2024-08-29 15:07 | Emergency Department Note ---
Impression & Plan SVT (supraventricular tachycardia), Elevated troponin, Abnormal ECG ED Provider Note NAME: CHRIS MCDANIEL AGE: 59 SEX: Male INFORMANT: Patient ED PROVIDER(S): Richard Veloz MD CHIEF COMPLAINT: Tachycardia PLAN: Disposition: Admitted Outpatient prescription management: none Referral: None MEDICAL DECISION MAKING: Patient presented because of tachycardia. His ECG was consistent with a narrow complex SVT. Vagal maneuvers were performed while an IV was established. The patient would have a transient break of a few beats where it appeared to be sinus and then he would go back to SVT. His rate was extremely fast. Patient was tolerating this well with no hypotension or diaphoresis. No respiratory distress. He had unremarkable chest x-ray and his blood work was unremarkable as well regarding his electrolytes and renal function. Patient denies any pulmonary symptoms. He had a saline bolus administered and the patient was given escalating doses of adenosine, 6 mg, 12 mg and then again 12 mg. He had a very brief, 2-3 beat break in the SVT back to sinus about 15 seconds after the 12 mg doses. Given the persistence Cardizem 10 mg was ordered. I did consult with Dr. Longoria of cardiology. He agreed with the Cardizem and Cardizem drip. If that was unsuccessful then did recommend initiation of amiodarone. The patient had conversion back to sinus rhythm with the Cardizem bolus and initiation of the drip. Patient's Cardizem drip was stopped. His repeat ECG showed return to sinus rhythm but ST depression noted in V3 through V5 as well as in V2 and 3. Patient's initial troponin was mildly elevated. In light of the findings cardiology did recommend echocardiography and this was ordered. Patient will need further evaluation and management in the hospital. Consultation was made with Dr. Enrique of the [facility] hospitalist service. Patient was evaluated in the ER and admitted for further management. Patient's cardiac troponin did come back elevated on repeat the second time. Did notify Dr. Longoria and he did recommend aspirin. This was conveyed to the hospitalist for ordering. I refer you to the EMR for further details. Care/management discussed with: Cardiology, case management Level of care consideration(s): After review of the information above and other included data, I feel the patient requires escalation of care to admission Triage Nursing notes: reviewed and agree them. Vital Signs: reviewed and remarkable for extreme tachycardia Additional History obtained from: none Chronic Medical/Social Conditions affecting care: Asthma Prior/ Outside/ External records reviewed: none Differential Diagnosis: Premature contractions, electrolyte abnormality, cardiac dysrhythmia, thyroid dysfunction, pulmonary embolism, infection, gastrointestinal, as well as other pathologies. Diagnostics, independently interpreted by me: ECG: Twelve-lead ECG reveals a supraventricular tachycardia at 197 bpm. Marked diffuse inferior and anterolateral ST depression. No ST elevation. When compared to 08 June 2024 SVT is new. Repeat twelve-lead ECG reveals sinus rhythm with occasional PVC at [address] depression noted anterolaterally and inferiorly. No ST elevation. Cardiac Monitoring: Cardiac monitoring ordered by me: The patient was placed on continuous cardiac monitoring and observed. It revealed SVT at 201 bpm. Medical decision rules: none Imaging studies: Chest x-ray is negative for pneumonia, large effusion, pneumothorax. I refer you to the EMR for further details. HPI: 59 year old Male arrives for evaluation of tachycardia. This started this morning when he woke up and is persisting. The patient also notes the following associated symptoms, none. Patient notes having a fleeting episode of the same problem over a week ago. That resolved spontaneously. The patient has found no relieving factors. Current pain is rated as 0/10. Patient notes that he has some discomfort in his neck and jaw which he attributed to a history of fracture in his cervical spine. Patient has a history of asthma but no cardiac history. He does note a strong cardiac history in the family however he notes all of those family members were smokers. Pt denies LOC, recent illness, headache, fevers, chills, diaphoresis, visual changes,chest pain, breathing difficulties, nausea, vomiting, abdominal pain, back pain, melena, hematochezia, urinary symptoms, numbness, weakness, lymphadenopathy, rash, or other complaints.. PAST MEDICAL HISTORY: See Below, asthma PAST SURGICAL HISTORY: See Below, SOCIAL HISTORY: See Below, non-smoker HOME MEDICATIONS: See Below ALLERGIES: See Below VITALS: See Below PHYSICAL EXAMINATION: GENERAL: Awake, alert, well-appearing, in no distress HENT: Normocephalic, atraumatic. Oropharynx unremarkable. EYES: Normal conjunctiva. Sclera non-icteric. NECK: Inspection normal. Non-tender. Supple. No nuchal rigidity. FROM. No masses. RESPIRATORY: Clear to auscultation. No wheezes. No rales. Normal respiratory effort. CARDIAC: Extremely tachycardic rate. Normal rhythm. No murmurs. No rubs. Extremities warm and well perfused. Pulses equal. No JVD. GI: Soft, non-distended. No tenderness to palpation. No rebound or guarding. No masses. RECTAL: Deferred. MUSCULOSKELETAL: Atraumatic. Chest examination reveals no tenderness. The back is symmetrical on inspection without obvious abnormality. There is no CVA tenderness to palpation. No joint edema. LOWER EXTREMITIES: Calves are equal size bilaterally and non-tender. No edema. No discoloration. NEURO: Normal sensorium. No sensory or motor deficits noted. SKIN: No rash or jaundice noted. PROCEDURES: none CRITICAL CARE: I have personally spent 45 minutes of critical care time in the direct management of this patient. This includes bedside care, interpretation of diagnostic studies, and testing, discussion with consultants, patient, and other required patient management activities. These minutes are in excess of all separately billable procedures. OBSERVATION NOTE: none Past Med/Surg History Problem List (Updated 08/29/24 @ 15:07 by Richard Veloz MD) Abnormal ECG (Acute) Elevated troponin (Acute) Elevated troponin SVT (supraventricular tachycardia) (Acute) Basal cell carcinoma Diabetes mellitus S/P excision of skin lesion, follow-up exam Asthma (Acute) Hyperlipidemia (Acute) Hypertension (Acute) Lumbar disc disease (Acute) Medical History (Updated 08/29/24 @ 15:07 by Richard Veloz MD) Encounter for pre-operative examination Skin lesion of neck Pre-diabetes HERRERA-inhibitor cough PONV (postoperative nausea and vomiting) Skin lesion of neck Pre-diabetes Hypertension Hyperlipidemia Asthma Surgical History (Updated 07/01/24 @ 15:15 by Joan Ponce) Hx of arthroscopy of left knee Hx of colonoscopy (2017) History of surgery Excision of Left Neck Lesion, 04/02/2024 - Dr. Osborn. Done in clinic under local anesthesia 06/23/24-Removal of left-sided post auricular lesion-Dr. 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 Operator Required: No Beliefs That Will Affect Care: None marital status: Current Living Situation: Spouse current occupational status: employed current occupation: [employer] How many Children do You have: 3 Feels Safe at Home: Yes Childhood Exposure to Second-Hand Smoke: No Diet: regular caffeine: Yes Dental Care, Regularly: No Physical Activity Frequency: Daily Seatbelt Use: always Sunscreen Use: No Assistive Devices: Glasses Allergies Allergies Allergy/AdvReac Type Severity Reaction Status Date / Time aspirin Allergy Severe Shortness Verified 08/29/24 10:45 of Breath codeine Allergy Severe Shortness Verified 08/29/24 10:45 of Breath Penicillins Allergy Severe Shortness Verified 08/29/24 10:45 of Breath Home Meds Home Medications Medication Instructions Recorded Confirmed olmesartan 5 mg tablet 5 mg PO QAM 06/12/24 08/29/24 rosuvastatin 10 mg tablet 10 mg PO QAM 06/12/24 08/29/24 Previous Rx's Medication Instructions Recorded salmeterol 50 mcg/dose blister 1 inh inhalation BID #180 ea 06/25/24 powder for inhalation (Serevent Diskus) Results & Data (ED) Vital Signs Vital Signs - 24 hr 08/29/24 08:05 08/29/24 08:16 08/29/24 08:40 Temperature 36.6 C Temperature Source Oral Pulse Rate 125 H 204 H Pulse Rate [Apical] Pulse Rate from SpO2 Sensor Pulse Rhythm Pulse Rhythm [Apical] Pulse Strength [Apical] Respiratory Rate 20 Respiratory Effort / Characteristics Non-Labored Spontaneous Respiratory Depth Normal Respiratory Pattern Regular Blood Pressure 113/75 117/79 Blood Pressure [Left Arm] Blood Pressure Mean 87 93 Blood Pressure Mean [Left Arm] Blood Pressure Position [Left Arm] Pulse Oximetry 100 Oxygen Delivery Method Room Air Sepsis Recent Fever Within 48 Hours No Sepsis New/Unexplained Change in Mental Status N/A Sepsis Action Taken by Nursing No Action Required 08/29/24 08:48 08/29/24 08:48 08/29/24 08:50 Temperature Temperature Source Pulse Rate Pulse Rate [Apical] 189 H Pulse Rate from SpO2 Sensor Pulse Rhythm Pulse Rhythm [Apical] Regular Pulse Strength [Apical] Normal Respiratory Rate 20 Respiratory Effort / Characteristics Non-Labored Spontaneous Respiratory Depth Normal Respiratory Pattern Regular Blood Pressure 112/82 Blood Pressure [Left Arm] 112/82 Blood Pressure Mean 98 Blood Pressure Mean [Left Arm] 92 Blood Pressure Position [Left Arm] Lying Pulse Oximetry 98 97 Oxygen Delivery Method Room Air Sepsis Recent Fever Within 48 Hours Sepsis New/Unexplained Change in Mental Status Sepsis Action Taken by Nursing 08/29/24 08:54 08/29/24 08:58 08/29/24 08:59 Temperature Temperature Source Pulse Rate 175 H 177 H 104 H Pulse Rate [Apical] Pulse Rate from SpO2 Sensor 175 H Pulse Rhythm Pulse Rhythm [Apical] Pulse Strength [Apical] Respiratory Rate 16 Respiratory Effort / Characteristics Respiratory Depth Respiratory Pattern Blood Pressure Blood Pressure [Left Arm] Blood Pressure Mean Blood Pressure Mean [Left Arm] Blood Pressure Position [Left Arm] Pulse Oximetry 97 Oxygen Delivery Method Room Air Sepsis Recent Fever Within 48 Hours Sepsis New/Unexplained Change in Mental Status Sepsis Action Taken by Nursing 08/29/24 09:06 08/29/24 09:09 08/29/24 09:11 Temperature Temperature Source Pulse Rate 90 Pulse Rate [Apical] Pulse Rate from SpO2 Sensor Pulse Rhythm Pulse Rhythm [Apical] Pulse Strength [Apical] Respiratory Rate 18 Respiratory Effort / Characteristics Respiratory Depth Respiratory Pattern Blood Pressure 135/86 125/88 Blood Pressure [Left Arm] Blood Pressure Mean 94 104 Blood Pressure Mean [Left Arm] Blood Pressure Position [Left Arm] Pulse Oximetry 96 Oxygen Delivery Method Room Air Sepsis Recent Fever Within 48 Hours Sepsis New/Unexplained Change in Mental Status Sepsis Action Taken by Nursing 08/29/24 09:15 08/29/24 09:16 08/29/24 09:18 Temperature Temperature Source Pulse Rate 85 90 Pulse Rate [Apical] Pulse Rate from SpO2 Sensor Pulse Rhythm Pulse Rhythm [Apical] Pulse Strength [Apical] Respiratory Rate 20 20 Respiratory Effort / Characteristics Respiratory Depth Respiratory Pattern Blood Pressure 136/93 118/87 Blood Pressure [Left Arm] Blood Pressure Mean 107 101 Blood Pressure Mean [Left Arm] Blood Pressure Position [Left Arm] Pulse Oximetry 94 96 Oxygen Delivery Method Room Air Room Air Sepsis Recent Fever Within 48 Hours Sepsis New/Unexplained Change in Mental Status Sepsis Action Taken by Nursing 08/29/24 09:21 08/29/24 09:24 08/29/24 09:36 Temperature Temperature Source Pulse Rate 84 81 80 Pulse Rate [Apical] Pulse Rate from SpO2 Sensor Pulse Rhythm Pulse Rhythm [Apical] Pulse Strength [Apical] Respiratory Rate 14 12 14 Respiratory Effort / Characteristics Respiratory Depth Respiratory Pattern Blood Pressure 112/84 115/79 111/81 Blood Pressure [Left Arm] Blood Pressure Mean 93 91 91 Blood Pressure Mean [Left Arm] Blood Pressure Position [Left Arm] Pulse Oximetry 93 93 92 Oxygen Delivery Method Room Air Room Air Room Air Sepsis Recent Fever Within 48 Hours Sepsis New/Unexplained Change in Mental Status Sepsis Action Taken by Nursing 08/29/24 09:42 08/29/24 10:05 08/29/24 10:15 Temperature Temperature Source Pulse Rate 81 79 Pulse Rate [Apical] Pulse Rate from SpO2 Sensor 74 Pulse Rhythm Pulse Rhythm [Apical] Pulse Strength [Apical] Respiratory Rate 14 18 Respiratory Effort / Characteristics Respiratory Depth Respiratory Pattern Blood Pressure 118/73 106/67 110/79 Blood Pressure [Left Arm] Blood Pressure Mean 88 81 89 Blood Pressure Mean [Left Arm] Blood Pressure Position [Left Arm] Pulse Oximetry 93 Oxygen Delivery Method Room Air Sepsis Recent Fever Within 48 Hours Sepsis New/Unexplained Change in Mental Status Sepsis Action Taken by Nursing 08/29/24 10:33 08/29/24 10:42 08/29/24 10:48 Temperature Temperature Source Pulse Rate 76 77 72 Pulse Rate [Apical] Pulse Rate from SpO2 Sensor 75 75 71 Pulse Rhythm Pulse Rhythm [Apical] Pulse Strength [Apical] Respiratory Rate 16 14 14 Respiratory Effort / Characteristics Respiratory Depth Respiratory Pattern Blood Pressure 115/81 110/82 117/87 Blood Pressure [Left Arm] Blood Pressure Mean 92 91 97 Blood Pressure Mean [Left Arm] Blood Pressure Position [Left Arm] Pulse Oximetry 98 100 99 Oxygen Delivery Method Room Air Room Air Room Air Sepsis Recent Fever Within 48 Hours Sepsis New/Unexplained Change in Mental Status Sepsis Action Taken by Nursing 08/29/24 10:57 08/29/24 11:18 08/29/24 11:33 Temperature Temperature Source Pulse Rate 72 69 71 Pulse Rate [Apical] Pulse Rate from SpO2 Sensor 71 65 68 Pulse Rhythm Pulse Rhythm [Apical] Pulse Strength [Apical] Respiratory Rate 18 16 14 Respiratory Effort / Characteristics Respiratory Depth Respiratory Pattern Blood Pressure 113/89 117/88 114/90 Blood Pressure [Left Arm] Blood Pressure Mean 97 97 98 Blood Pressure Mean [Left Arm] Blood Pressure Position [Left Arm] Pulse Oximetry 98 99 98 Oxygen Delivery Method Room Air Room Air Room Air Sepsis Recent Fever Within 48 Hours Sepsis New/Unexplained Change in Mental Status Sepsis Action Taken by Nursing 08/29/24 11:51 08/29/24 12:07 08/29/24 12:12 Temperature Temperature Source Pulse Rate 83 74 68 Pulse Rate [Apical] Pulse Rate from SpO2 Sensor 83 69 Pulse Rhythm Regular Pulse Rhythm [Apical] Pulse Strength [Apical] Respiratory Rate 12 18 22 Respiratory Effort / Characteristics Respiratory Depth Respiratory Pattern Blood Pressure 118/81 120/96 Blood Pressure [Left Arm] Blood Pressure Mean 93 104 Blood Pressure Mean [Left Arm] Blood Pressure Position [Left Arm] Pulse Oximetry 98 98 98 Oxygen Delivery Method Room Air Room Air Room Air Sepsis Recent Fever Within 48 Hours Sepsis New/Unexplained Change in Mental Status Sepsis Action Taken by Nursing 08/29/24 12:21 08/29/24 12:45 08/29/24 13:00 Temperature Temperature Source Pulse Rate 74 86 68 Pulse Rate [Apical] Pulse Rate from SpO2 Sensor 71 87 67 Pulse Rhythm Pulse Rhythm [Apical] Pulse Strength [Apical] Respiratory Rate 15 18 14 Respiratory Effort / Characteristics Respiratory Depth Respiratory Pattern Blood Pressure 112/86 116/86 122/86 Blood Pressure [Left Arm] Blood Pressure Mean 94 96 98 Blood Pressure Mean [Left Arm] Blood Pressure Position [Left Arm] Pulse Oximetry 98 98 97 Oxygen Delivery Method Room Air Room Air Sepsis Recent Fever Within 48 Hours Sepsis New/Unexplained Change in Mental Status Sepsis Action Taken by Nursing 08/29/24 13:12 08/29/24 14:00 08/29/24 14:45 Temperature Temperature Source Pulse Rate 68 78 83 Pulse Rate [Apical] Pulse Rate from SpO2 Sensor 68 Pulse Rhythm Pulse Rhythm [Apical] Pulse Strength [Apical] Respiratory Rate 14 18 16 Respiratory Effort / Characteristics Respiratory Depth Respiratory Pattern Blood Pressure 117/83 125/88 123/81 Blood Pressure [Left Arm] Blood Pressure Mean 94 97 95 Blood Pressure Mean [Left Arm] Blood Pressure Position [Left Arm] Pulse Oximetry 96 98 98 Oxygen Delivery Method Room Air Room Air Room Air Sepsis Recent Fever Within 48 Hours Sepsis New/Unexplained Change in Mental Status Sepsis Action Taken by Nursing 08/29/24 14:50 Temperature Temperature Source Pulse Rate Pulse Rate [Apical] Pulse Rate from SpO2 Sensor Pulse Rhythm Pulse Rhythm [Apical] Pulse Strength [Apical] Respiratory Rate Respiratory Effort / Characteristics Respiratory Depth Respiratory Pattern Blood Pressure Blood Pressure [Left Arm] Blood Pressure Mean Blood Pressure Mean [Left Arm] Blood Pressure Position [Left Arm] Pulse Oximetry Oxygen Delivery Method Room Air Sepsis Recent Fever Within 48 Hours Sepsis New/Unexplained Change in Mental Status Sepsis Action Taken by Nursing Laboratory Data 08/29/24 08:10 08/29/24 08:10 Lab Results 08/29/24 08/29/24 08/29/24 Range/Units 08:10 08:33 10:13 WBC 6.76 (4.8-10.8) K/ul RBC 4.95 (4.70-6.10) M/uL Hgb 15.9 (14.0-18.0) g/dl POC Hgb 14.6 (14.0-18.0) g/dl Hct 45.5 (42.0-52.0) % POC Hct 43 (42-52) % MCV 91.9 (80.0-100.0) fL MCH 32.1 (25.0-34.0) pg MCHC 34.9 (32.0-36.0) g/dL RDW Std Deviation 43.0 (36.4-46.3) fL RDW Coeff of Afshan 12.8 (11.5-14.5) % Plt Count 216 (130-400) K/uL MPV 10.6 (9.4-12.4) fL Immature Gran % (Auto) 0.3 % Neut % (Auto) 56.6 % Lymph % (Auto) 31.8 % [place] % (Auto) 8.0 % Eos % (Auto) 2.7 % Baso % (Auto) 0.6 % Neut # (Auto) 3.83 (1.40-6.50) K/uL Lymph # (Auto) 2.15 (1.20-3.40) K/uL [place] # (Auto) 0.54 (0.11-0.59) K/uL Eos # (Auto) 0.18 (0.00-0.50) K/uL Baso # (Auto) 0.04 (0.00-0.20) K/uL Immature Gran # (Auto) 0.02 (0.01-0.20) K/uL POC Sodium 142 (135-144) mmol/L Sodium 140 (136-145) mmol/L POC Potassium 4.1 (3.3-5.0) mmol/L Potassium 4.0 (3.5-5.1) mmol/L POC Chloride 108 (101-112) mmol/L Chloride 106 (98-107) mmol/L Carbon Dioxide 29 (21-32) mmol/L POC Total CO2 20 L (24-31) mmol/L Anion Gap 5 (3-11) POC Anion Gap 18.0 (16-25) mmol/L POC BUN 20 H (7-18) mg/dl BUN 22 (6-23) mg/dl Creatinine 1.13 (0.6-1.4) mg/dl POC Creatinine 0.9 (0.6-1.3) mg/dl Est Cr Clr Drug Dosing 81.8 ml/min eGFR 74.87 BUN/Creatinine Ratio 19.5 (10-20) Glucose 139 H (70-99(Fasting)) mg/dl POC Glucose (other) 144 H (70-99) mg/dl Calcium 9.3 (8.6-10.3) mg/dl POC Ioniz Calcium Jorge 1.13 (1.12-1.32) mmol/l Magnesium 1.9 (1.7-2.4) mg/dl Total Bilirubin 0.6 (0.2-1.0) mg/dl AST 30 (13-39) U/L ALT 35 (7-52) U/L Alkaline Phosphatase 67 (34-104) U/L Troponin I High Sens 32.0 H 520.5 H* D (0-20) pg/ml Total Protein 7.2 (6.0-8.3) gm/dl Albumin 4.5 (3.4-5.0) gm/dl Globulin 2.7 (2.5-4.0) gm/dl Albumin/Globulin Ratio 1.7 (0.9-2) TSH 2.705 (0.300-4.500) uIu/ml Adenovirus (PCR) (NotDetected) B. pertussis DNA (PCR) (NotDetected) B.parapertussis DNA PCR (NotDetected) C. pneumoniae DNA (PCR) (NotDetected) Coronavirus OC43 (PCR) (NotDetected) Coronavirus HKU1 (PCR) (NotDetected) Coronavirus 229E (PCR) (NotDetected) SARS-CoV-2 (PCR) (NotDetected) Coronavirus NL63 (PCR) (NotDetected) Human Metapneumovir PCR (NotDetected) Influenza Type A (PCR) (NotDetected) Influenza Type B (PCR) (NotDetected) M. pneumoniae (PCR) (NotDetected) Parainfluenza 1 (PCR) (NotDetected) Parainfluenza 2 (PCR) (NotDetected) Parainfluenza 3 (PCR) (NotDetected) Parainfluenza 4 (PCR) (NotDetected) RSV (PCR) (NotDetected) Entero/Rhino (PCR) (NotDetected) 08/29/24 Range/Units 12:15 WBC (4.8-10.8) K/ul RBC (4.70-6.10) M/uL Hgb (14.0-18.0) g/dl POC Hgb (14.0-18.0) g/dl Hct (42.0-52.0) % POC Hct (42-52) % MCV (80.0-100.0) fL MCH (25.0-34.0) pg MCHC (32.0-36.0) g/dL RDW Std Deviation (36.4-46.3) fL RDW Coeff of Afshan (11.5-14.5) % Plt Count (130-400) K/uL MPV (9.4-12.4) fL Immature Gran % (Auto) % Neut % (Auto) % Lymph % (Auto) % [place] % (Auto) % Eos % (Auto) % Baso % (Auto) % Neut # (Auto) (1.40-6.50) K/uL Lymph # (Auto) (1.20-3.40) K/uL [place] # (Auto) (0.11-0.59) K/uL Eos # (Auto) (0.00-0.50) K/uL Baso # (Auto) (0.00-0.20) K/uL Immature Gran # (Auto) (0.01-0.20) K/uL POC Sodium (135-144) mmol/L Sodium (136-145) mmol/L POC Potassium (3.3-5.0) mmol/L Potassium (3.5-5.1) mmol/L POC Chloride (101-112) mmol/L Chloride (98-107) mmol/L Carbon Dioxide (21-32) mmol/L POC Total CO2 (24-31) mmol/L Anion Gap (3-11) POC Anion Gap (16-25) mmol/L POC BUN (7-18) mg/dl BUN (6-23) mg/dl Creatinine (0.6-1.4) mg/dl POC Creatinine (0.6-1.3) mg/dl Est Cr Clr Drug Dosing ml/min eGFR BUN/Creatinine Ratio (10-20) Glucose (70-99(Fasting)) mg/dl POC Glucose (other) (70-99) mg/dl Calcium (8.6-10.3) mg/dl POC Ioniz Calcium Jorge (1.12-1.32) mmol/l Magnesium (1.7-2.4) mg/dl Total Bilirubin (0.2-1.0) mg/dl AST (13-39) U/L ALT (7-52) U/L Alkaline Phosphatase (34-104) U/L Troponin I High Sens (0-20) pg/ml Total Protein (6.0-8.3) gm/dl Albumin (3.4-5.0) gm/dl Globulin (2.5-4.0) gm/dl Albumin/Globulin Ratio (0.9-2) TSH (0.300-4.500) uIu/ml Adenovirus (PCR) Not Detected (NotDetected) B. pertussis DNA (PCR) Not Detected (NotDetected) B.parapertussis DNA PCR Not Detected (NotDetected) C. pneumoniae DNA (PCR) Not Detected (NotDetected) Coronavirus OC43 (PCR) Not Detected (NotDetected) Coronavirus HKU1 (PCR) Not Detected (NotDetected) Coronavirus 229E (PCR) Not Detected (NotDetected) SARS-CoV-2 (PCR) Not Detected (NotDetected) Coronavirus NL63 (PCR) Not Detected (NotDetected) Human Metapneumovir PCR Not Detected (NotDetected) Influenza Type A (PCR) Not Detected (NotDetected) Influenza Type B (PCR) Not Detected (NotDetected) M. pneumoniae (PCR) Not Detected (NotDetected) Parainfluenza 1 (PCR) Not Detected (NotDetected) Parainfluenza 2 (PCR) Not Detected (NotDetected) Parainfluenza 3 (PCR) Not Detected (NotDetected) Parainfluenza 4 (PCR) Not Detected (NotDetected) RSV (PCR) Not Detected (NotDetected) Entero/Rhino (PCR) Not Detected (NotDetected) Administered Medications Sodium Chloride (Nss) 1,000 mls @ 125 mls/hr IV .Q8H JUSTIN Stop: 08/30/24 08:59 Last Admin: 08/29/24 09:01 Dose: 125 mls/hr Documented By: Discontinued Medications Adenosine (Adenosine Iv Soln 3 Mg/Ml 2 Ml Vial) Confirm Administered Dose 18 mg IV .STK-MED ONE Stop: 08/29/24 08:17 Last Admin: 08/29/24 08:46 Dose: Not Given Documented By: Adenosine (Adenosine Iv Soln 3 Mg/Ml 2 Ml Vial) Confirm Administered Dose 12 mg IV .STK-MED ONE Stop: 08/29/24 08:30 Last Admin: 08/29/24 08:47 Dose: Not Given Documented By: Adenosine (Adenosine Iv Soln 3 Mg/Ml 2 Ml Vial) 6 mg IV NOW STA Stop: 08/29/24 08:37 Last Admin: 08/29/24 08:20 Dose: 6 mg Documented By: Adenosine (Adenosine Iv Soln 3 Mg/Ml 2 Ml Vial) 12 mg IV NOW STA Stop: 08/29/24 08:37 Last Admin: 08/29/24 08:25 Dose: 12 mg Documented By: Adenosine (Adenosine Iv Soln 3 Mg/Ml 2 Ml Vial) 12 mg IV NOW STA Stop: 08/29/24 08:37 Last Admin: 08/29/24 08:31 Dose: 12 mg Documented By: Diltiazem HCl (Diltiazem Hcl 5 Mg/Ml 5 Ml Vial) 10 mg IV NOW STA Stop: 08/29/24 08:39 Last Admin: 08/29/24 08:43 Dose: 10 mg Documented By: Co-signed By: MELA Sodium Chloride (Nss) 1,000 mls @ 999 mls/hr IV .Q1H1M ONE Stop: 08/29/24 09:38 Last Infusion: 08/29/24 09:56 Dose: Infused Documented By: Admin: 08/29/24 08:44 Dose: 999 mls/hr Documented By: Diltiazem HCl 125 mg/ Dextrose 125 mls @ 5 mls/hr IV .Q24H JUSTIN; Protocol Stop: 09/28/24 08:59 Last Titration: 08/29/24 09:45 Dose: 0 mg/hr, 0 mls/hr Documented By: Co-signed By: [email or web address] Admin: 08/29/24 09:06 Dose: 5 mg/hr, 5 mls/hr Documented By: LEIGH Co-signed By: Magnesium Sulfate/Dextrose (Magnesium Sulfate / D5w) 1 gm in 100 mls @ 100 mls/hr IV NOW STA Stop: 08/29/24 11:22 Last Infusion: 08/29/24 11:50 Dose: Infused Documented By: Admin: 08/29/24 10:33 Dose: 100 mls/hr Documented By: Imaging Data Radiologist's Impression: Chest X-Ray 08/29/24 08:10 XR chest 1V portable HISTORY: 59 years-old Male svt acute chest pain or shortness of breath COMPARISON: 06/27/2012 TECHNIQUE: AP view of the chest FINDINGS: Mild bilateral reticular nodular densities, right greater than left. No pneumothorax, pleural effusion or pulmonary edema. Mild linear bibasilar densities. Bones appear grossly intact. IMPRESSION: 1. Bibasilar reticular nodular densities, likely infectious or inflammatory. 2. Mild bibasilar atelectasis. ACT 112: Negative or not required by law. The above report was generated using voice recognition software. It may contain grammatical, syntax or spelling errors. Electronically signed by: Junior Valencia M.D. 08/29/2024 9:37 AM Discharge Plan Visit Data Chief Complaint: Tachycardia Stated Complaint: HIGH PULSE, HEART RACING ED Provider: Richard Veloz Discharge Problem: SVT (supraventricular tachycardia), Elevated troponin, Abnormal ECG Patient Disposition: Admitted As Inpatient Discharge Instructions Interventions: ED Discharge Assessment Last Done: 08/29/24 14:50 Forms Stand Alone Forms: My [employer] Prescriptions Prescriptions: No Action Serevent Diskus 50 mcg/dose blister with device 1 inh INH BID Qty: 180 3RF olmesartan 5 mg tablet 5 mg PO QAM rosuvastatin 10 mg tablet 10 mg PO QAM Referrals Referrals: Noe Gallegos, [Primary Care Provider] -
[2024-08-29] MEDS: STAT IV Infusion **Titration per Protocol STA (16:34)
--- NOTE | 2024-08-29 17:27 | Cardiology Consultation ---
Date of Consultation August 29, 2024 Assessment & Plan (1) SVT (supraventricular tachycardia): (2) Cardiomyopathy: (3) Elevated troponin: (4) Hypertension: (5) Hyperlipidemia: (6) Dyspnea on exertion: Plan ASSESSMENT/PLAN: 1. SVT: Symptomatic and converted to sinus rhythm following intravenous diltiazem in the ER. We discussed the diagnosis and that it may likely return at some point. Recommend EP consultation, likely as an outpatient if no significant SVT burden while hospitalized, to consider EP study and ablation if deemed appropriate. If he has significant recurrence here, consider antiarrhythmic therapy such as amiodarone to manage until EPS available. 3. Cardiomyopathy: Had mildly reduced LV systolic function in the past but now severely reduced. He appears euvolemic. Start metoprolol succinate, if okay from a lung (asthma) standpoint. Hospitalist service is agreeable to initiate beta-veronica at this time. Continue ARB. Recommend cardiac catheterization to evaluate for coronary artery disease. Risks and benefits of the procedure were discussed with he and his in detail. They are made aware that CT surgery is not available at this facility. If with optimal medical therapy +/- revascularization if needed, LV systolic function does not significantly improved, ICD for primary prevention can be considered. If nonischemic, recommend optimal medical therapy for 3 months prior to ICD for primary prevention. If nonischemic, will consider outpatient cardiac MRI and other secondary workup as appropriate. Low-sodium diet. 3. Elevated troponin: Likely due to demand ischemia from prolonged SVT with heart rates near 200 bpm. Otherwise, no angina. Cardiac catheterization as above. Considered and discussed aspirin therapy with primary hospitalist service but given his listed aspirin allergy, hospitalist prefers to hold off u nless found to have CAD. 4. Hypertension: Blood pressure mildly elevated from a diastolic perspective at times intermittently. Initiating beta-veronica. Continue ARB. 5. Dyslipidemia: Continue statin therapy. If found to have CAD, would recommend high intensity statin therapy. 6. Dyspnea on exertion: He appears euvolemic. May be related to his cardiomyopathy. Cannot exclude coronary artery disease. Cardiac catheterization as above. 7. Disposition: Cardiology will continue to follow. Patient care communicated with primary hospitalist service, Dr. Enrique. Highly complex medical issues. Thank you for allowing me to participate in the care of your patient. Please call for any other questions or concerns. Sincerely, Chadd Longoria M.D. History of Present Illness Reason for Consultation: SVT Requesting Physician: Ilda Glasgow PA-C Attending Physician: Jed Enrique MD History of Present Illness Mr. Payton is a very pleasant 59-year-old gentleman with history significant for type 2 diabetes, hypertension, dyslipidemia, and asthma. He was hospitalized on 08/29/2024 after presenting with SVT. One week prior to presentation, he felt palpitations for a few seconds while at work. It felt as though his heart was racing but symptoms spontaneously resolved. On 08/29/2024, he woke up at approximately 7 AM and noted palpitations. His heart rate was in the 200s. He felt a tightness in his neck and jaw. He has chronic neck pain after a fracture 4 years ago but this neck discomfort was different. When he came to the hospital, he was noted to have SVT near 200 bpm. He received adenosine and ER physician noted only brief break in the arrhythmia before it would return. Vagal maneuvers demonstrated similar findings. Dr. Veloz contacted me via telephone. He then administered IV diltiazem and shortly thereafter, he converted to sinus rhythm. When he converted, the neck and jaw tightness completely resolved. He denies any recent chest pain. He has occasional dyspnea on exertion over the past 5 years or so but it has mildly progressively worsened. He does not stop to catch his breath and is very active. 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 He also carries firewood. He denies syncope, near syncope, chest pain, shortness of breath at rest, melena, hematochezia, hematuria, or edema. In regards to asthma, he recalls having issues as a child and teenager but no significant issues since then. He uses an inhaler twice a day. Review of systems: As above. Family history: Maternal uncles had CAD. Father had some form of heart issue. Brother had diabetes. Social history: He denies tobacco, alcohol, or drug abuse. He lives at home with his , Sallie. Had 3 children but 1 . Has a son and shirley and a daughter in [place]. 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 He also lives on a farm. His was present at the bedside. Allergies Allergy/AdvReac Type Severity Reaction Status Date / Time aspirin Allergy Severe Shortness Verified 08/29/24 10:45 of Breath codeine Allergy Severe Shortness Verified 08/29/24 10:45 of Breath Penicillins Allergy Severe Shortness Verified 08/29/24 10:45 of Breath Home Medications Medication Instructions Recorded Confirmed Type olmesartan 5 mg tablet 5 mg PO QAM 06/12/24 08/29/24 History rosuvastatin 10 mg tablet 10 mg PO QAM 06/12/24 08/29/24 History salmeterol 50 mcg/dose blister 1 inh inhalation BID #180 ea 06/25/24 08/29/24 Rx powder for inhalation (Serevent Diskus) Problem List (Updated 08/29/24 @ 22:16 by Neeraj Longoria MD) Dyspnea on exertion Cardiomyopathy Abnormal ECG (Acute) Elevated troponin (Acute) Elevated troponin SVT (supraventricular tachycardia) (Acute) Basal cell carcinoma Diabetes mellitus S/P excision of skin lesion, follow-up exam Asthma (Acute) Hyperlipidemia (Acute) Hypertension (Acute) Lumbar disc disease (Acute) Patient History Medical History Encounter for pre-operative examination Skin lesion of neck Pre-diabetes HERRERA-inhibitor cough PONV (postoperative nausea and vomiting) Skin lesion of neck Pre-diabetes Hypertension Hyperlipidemia Asthma Surgical History (Updated 07/01/24 @ 15:15 by Joan Ponce) Hx of arthroscopy of left knee Hx of colonoscopy (2017) History of surgery Excision of Left Neck Lesion, 04/02/2024 - Dr. Osborn. Done in clinic under local anesthesia 06/23/24-Removal of left-sided post auricular lesion-Dr. 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 History of back surgery Lumbar History of appendectomy Family History Uncle Coronary heart disease Aunt Coronary heart disease Father Coronary heart disease Diabetes Hypertension Social History Smoking Status: Never smoker Second Hand Exposure: No; Do You Dip or Chew Tobacco: No; Hx Alcohol Use: No Hx Substance Use: No Preferred Language: Taiwanese Communication Ability: Effective Director Blood Bank Required: No Beliefs That Will Affect Care: None marital status: Current Living Situation: Spouse current occupational status: employed current occupation: [employer] How many Children do You have: 3 Feels Safe at Home: Yes Safety Concerns: Feels Safe At This Time Childhood Exposure to Second-Hand Smoke: No Diet: regular caffeine: Yes Dental Care, Regularly: No Physical Activity Frequency: Daily Seatbelt Use: always Sunscreen Use: No Assistive Devices: Glasses Physical Exam Physical Exam: Gen.: No acute distress. Alert and oriented. HEENT: Anicteric sclera. Neck: No JVD. No bruits. Normal carotid upstrokes bilaterally. Cardiac: Regular. Normal S1-S2. No murmurs, rubs, or gallops. Pulmonary: Clear to auscultation bilaterally without wheezes, rales, or rhonchi. Abdomen: Soft, nontender, nondistended, with normoactive bowel sounds. No bruits noted. Extremities: 2+ radial pulses bilaterally. 2+ posterior tibialis pulses bilaterally. No edema or cyanosis. Psychiatric: Affect appears appropriate. Results & Data Vital Signs (Past 12 Hours) Vital Signs Temp Pulse Pulse Resp BP BP Pulse Ox 08/29/24 16:15 36.4 C L 85 16 130/87 97 08/29/24 16:00 88 20 96/77 L 96 08/29/24 14:50 08/29/24 14:45 83 16 123/81 98 08/29/24 14:00 78 18 125/88 98 08/29/24 13:12 68 14 117/83 96 08/29/24 13:00 68 14 122/86 97 08/29/24 12:45 86 18 116/86 98 08/29/24 12:21 74 15 112/86 98 08/29/24 12:12 68 22 120/96 98 08/29/24 12:07 74 18 98 08/29/24 11:51 83 12 118/81 98 08/29/24 11:33 71 14 114/90 98 08/29/24 11:18 69 16 117/88 99 08/29/24 10:57 72 18 113/89 98 08/29/24 10:48 72 14 117/87 99 08/29/24 10:42 77 14 110/82 100 08/29/24 10:33 76 16 115/81 98 08/29/24 10:15 79 18 110/79 08/29/24 10:05 106/67 08/29/24 09:42 81 14 118/73 93 08/29/24 09:36 80 14 111/81 92 08/29/24 09:24 81 12 115/79 93 08/29/24 09:21 84 14 112/84 93 08/29/24 09:18 90 20 96 08/29/24 09:16 118/87 08/29/24 09:15 85 20 136/93 94 08/29/24 09:11 125/88 08/29/24 09:09 90 18 96 08/29/24 09:06 135/86 08/29/24 08:59 104 H 08/29/24 08:58 177 H 08/29/24 08:54 175 H 16 97 08/29/24 08:50 112/82 08/29/24 08:48 189 H 20 112/82 97 08/29/24 08:48 98 08/29/24 08:40 117/79 08/29/24 08:16 204 H 08/29/24 08:05 36.6 C 125 H 20 113/75 100 O2 Del Method 08/29/24 16:15 Room Air 08/29/24 16:00 Room Air 08/29/24 14:50 Room Air 08/29/24 14:45 Room Air 08/29/24 14:00 Room Air 08/29/24 13:12 Room Air 08/29/24 13:00 Room Air 08/29/24 12:45 Room Air 08/29/24 12:21 08/29/24 12:12 Room Air 08/29/24 12:07 Room Air 08/29/24 11:51 Room Air 08/29/24 11:33 Room Air 08/29/24 11:18 Room Air 08/29/24 10:57 Room Air 08/29/24 10:48 Room Air 08/29/24 10:42 Room Air 08/29/24 10:33 Room Air 08/29/24 10:15 08/29/24 10:05 08/29/24 09:42 Room Air 08/29/24 09:36 Room Air 08/29/24 09:24 Room Air 08/29/24 09:21 Room Air 08/29/24 09:18 Room Air 08/29/24 09:16 08/29/24 09:15 Room Air 08/29/24 09:11 08/29/24 09:09 Room Air 08/29/24 09:06 08/29/24 08:59 08/29/24 08:58 08/29/24 08:54 Room Air 08/29/24 08:50 08/29/24 08:48 Room Air 08/29/24 08:48 08/29/24 08:40 08/29/24 08:16 08/29/24 08:05 Room Air Laboratory Results Laboratory Results - last 24 hr 08/29/24 08/29/24 08/29/24 08:10 08:33 10:13 WBC 6.76 RBC 4.95 Hgb 15.9 POC Hgb 14.6 Hct 45.5 POC Hct 43 MCV 91.9 MCH 32.1 MCHC 34.9 RDW Std Deviation 43.0 RDW Coeff of Afshan 12.8 Plt Count 216 MPV 10.6 Immature Gran % (Auto) 0.3 Neut % (Auto) 56.6 Lymph % (Auto) 31.8 Horry % (Auto) 8.0 Eos % (Auto) 2.7 Baso % (Auto) 0.6 Neut # (Auto) 3.83 Lymph # (Auto) 2.15 [place] # (Auto) 0.54 Eos # (Auto) 0.18 Baso # (Auto) 0.04 Immature Gran # (Auto) 0.02 POC Sodium 142 Sodium 140 POC Potassium 4.1 Potassium 4.0 POC Chloride 108 Chloride 106 Carbon Dioxide 29 POC Total CO2 20 L Anion Gap 5 POC Anion Gap 18.0 POC BUN 20 H BUN 22 Creatinine 1.13 POC Creatinine 0.9 Est Cr Clr Drug Dosing 81.8 eGFR 74.87 BUN/Creatinine Ratio 19.5 Glucose 139 H POC Glucose (other) 144 H Calcium 9.3 POC Ioniz Calcium Jorge 1.13 Magnesium 1.9 Total Bilirubin 0.6 AST 30 ALT 35 Alkaline Phosphatase 67 Troponin I High Sens 32.0 H 520.5 H* D Total Protein 7.2 Albumin 4.5 Globulin 2.7 Albumin/Globulin Ratio 1.7 TSH 2.705 Adenovirus (PCR) B. pertussis DNA (PCR) B.parapertussis DNA PCR C. pneumoniae DNA (PCR) Coronavirus OC43 (PCR) Coronavirus HKU1 (PCR) Coronavirus 229E (PCR) SARS-CoV-2 (PCR) Coronavirus NL63 (PCR) Human Metapneumovir PCR Influenza Type A (PCR) Influenza Type B (PCR) M. pneumoniae (PCR) Parainfluenza 1 (PCR) Parainfluenza 2 (PCR) Parainfluenza 3 (PCR) Parainfluenza 4 (PCR) RSV (PCR) Entero/Rhino (PCR) 08/29/24 08/29/24 12:15 15:53 WBC RBC Hgb POC Hgb Hct POC Hct MCV MCH MCHC RDW Std Deviation RDW Coeff of Afshan Plt Count MPV Immature Gran % (Auto) Neut % (Auto) Lymph % (Auto) H[place] % (Auto) Eos % (Auto) Baso % (Auto) Neut # (Auto) Lymph # (Auto) Horry # (Auto) Eos # (Auto) Baso # (Auto) Immature Gran # (Auto) POC Sodium Sodium POC Potassium Potassium POC Chloride Chloride Carbon Dioxide POC Total CO2 Anion Gap POC Anion Gap POC BUN BUN Creatinine POC Creatinine Est Cr Clr Drug Dosing eGFR BUN/Creatinine Ratio Glucose POC Glucose (other) Calcium POC Ioniz Calcium Jorge Magnesium Total Bilirubin AST ALT Alkaline Phosphatase Troponin I High Sens 2090.1 H* D Total Protein Albumin Globulin Albumin/Globulin Ratio TSH Adenovirus (PCR) Not Detected B. pertussis DNA (PCR) Not Detected B.parapertussis DNA PCR Not Detected C. pneumoniae DNA (PCR) Not Detected Coronavirus OC43 (PCR) Not Detected Coronavirus HKU1 (PCR) Not Detected Coronavirus 229E (PCR) Not Detected SARS-CoV-2 (PCR) Not Detected Coronavirus NL63 (PCR) Not Detected Human Metapneumovir PCR Not Detected Influenza Type A (PCR) Not Detected Influenza Type B (PCR) Not Detected M. pneumoniae (PCR) Not Detected Parainfluenza 1 (PCR) Not Detected Parainfluenza 2 (PCR) Not Detected Parainfluenza 3 (PCR) Not Detected Parainfluenza 4 (PCR) Not Detected RSV (PCR) Not Detected Entero/Rhino (PCR) Not Detected Diagnostic Findings ECGs personally reviewed: ECG tracing from 08/29/2024 at 8:20 AM demonstrated SVT with heart rate of [address] depression and T wave inversion. ECG 08/29/2024 8:12 AM: SVT [address]/T wave abnormality. Telemetry: At the time of consultation, sinus rhythm with normal heart rate. Echo 08/29/2024: Moderately dilated left ventricle with severely reduced systolic function. EF 25-30%. Global hypokinesis. Mild LVH. Mildly dilated RV with normal systolic function. Severe left atrial dilation. Mild MR. No interatrial shunt noted. Compared to prior echo on 06/27/2012, LV systolic function has declined. Stress echo 06/27/2012: Negative for ischemia 104% MPHR. Resting EF 45 to 50%. No regional wall motion abnormalities. History and physical report reviewed. Labs reviewed and notable for normal hemoglobin, normal platelets, elevated high-sensitivity troponin up to 2089 (initially 32 and trended upward). Normal transaminase levels, normal TSH, normal potassium, stable renal function. History and physical report reviewed. Chest x-ray 08/29/2024: Bibasilar reticular nodule densities, likely infectious or inflammatory per radiology. Mild bibasilar atelectasis. Medications Administered Current Inpatient Medications Acetaminophen (Acetaminophen 325 Mg Tab) 650 mg PO Q4H PRN PRN Reason: Pain or Fever Stop: 09/28/24 11:48 Enoxaparin Sodium (Enoxaparin Inj 40 Mg/0.4 Ml Syr) 40 mg SQ QPM [facility] Stop: 09/28/24 20:59 Losartan Potassium (Losartan Potassium 25 Mg Tab) 12.5 mg PO QAM JUSTIN Stop: 09/29/24 08:59 Metoprolol Succinate (Metoprolol Succ 25mg Ext Rel Tab) 25 mg PO QAM JUSTIN Stop: 09/28/24 17:29 Olodaterol (Olodaterol Hcl 2.5mcg/Actuation 60 Puffs/Inhaler) 2 puffs INH DAILY JUSTIN Stop: 09/28/24 20:59 Polyethylene Glycol (Polyethylene (Miralax) 17 Gm Pack) 17 gm PO DAILY PRN PRN Reason: Constipation Stop: 09/28/24 11:48 Rosuvastatin Calcium (Rosuvastatin Calcium 10 Mg Tab) 10 mg PO QAM [facility] Stop: 09/29/24 08:59 PG Care Time/CCT Total # of Minutes Spent Total Time Spent with Patient: Total time spent is greater than 50% in coordination of care (as documented) at patient's floor/unit and/or counseling patient: Coding Level of Care Code 95751 INT INP/OBS CARE 375MIN Diagnoses SVT (supraventricular tachycardia) I47.10 Cardiomyopathy I42.9 Elevated troponin R79.89 Hypertension I10 Hyperlipidemia E78.5 Dyspnea on exertion R06.09
[2024-08-29] MEDS: METOPROLOL TARTRATE 25 MG TAB PO ONE (17:47)
[2024-08-29] MEDS: METOPROLOL SUCC 25MG EXT REL TAB PO SCH (18:33)
[2024-08-29] MEDS ORDERED: Nursing to Pharmacy Communication SCH (20:30)
[2024-08-29] MEDS: ENOXAPARIN INJ 40 MG/0.4 ML SYR SQ SCH (20:32)
[2024-08-29] MEDS ORDERED: OLODATEROL HCL 2.5MCG/ACTUATION 60 PUFFS/INHALER INH SCH (21:00)
[2024-08-29] MEDS: SALMETEROL XINAFOATE 50MCG 28 BLISTER INH INH SCH (22:21)
[2024-08-30] MEDS: SALMETEROL XINAFOATE 50MCG 28 BLISTER INH INH SCH (08:47)
[2024-08-30] MEDS: ROSUVASTATIN CALCIUM 10 MG TAB PO SCH (08:49)
[2024-08-30] MEDS: OLMESARTAN MEDOXOMIL 5 MG TAB PO SCH (08:50)
[2024-08-30] MEDS ORDERED: LOSARTAN POTASSIUM 25 MG TAB PO SCH (09:00)
[2024-08-30 12:15] LABS: BUN Creatinine Ratio 15.6 (10-20); Calcium 9.2 mg/dl (8.6-10.3); Creatinine Clr Calc Pharmacy 96.3 ml/min; Magnesium 1.9 mg/dl (1.7-2.4); Potassium 4.1 mmol/L (3.5-5.1)
[2024-08-30 12:23] LABS: Troponin I High Sensitivity 910.2 pg/ml (0-20)
--- NOTE | 2024-08-30 17:07 | Hospitalist Progress Note ---
Date of Service August 30, 2024 Assessment & Plan (1) SVT (supraventricular tachycardia): (2) Elevated troponin: (3) Diabetes mellitus: (4) Cardiomyopathy: (5) Elevated troponin: Plan This is a 57 year old gentleman with past medical history of hypertension, hyperlipidemia, asthma, and recently diagnosed type 2 diabetes who presented to the ED on 08/29/2024 with a chief complaint of tachycardia. #SVT - narrow complex tachycardia s/p Adenosine x 3, Diltiazem x 1, and Diltiazem drip started then stopped -remains in sinus rhythm with PVCs - reviewed tele -continue metoprolol - operations research scientist plans increase today. No evidence of bronchospasm #Troponin elevation - HS trop peaked at 2000 last night, ordered this AM was downtrending 520 -obtained repeat EKG this AM per my interpretation, sinus rhythm with a PVC, nonspecific anterolateral ST changes -probable myocardial demand ischemia from the SVT, however angiogram is planned tomorrow to evaluate cardiomyopathy #Cardiomyopathy - had stress test over 10 years ago with mildly reduced EF of which he was unaware. Now severe with EF 25-30% on current Echo with global hypokinesis. Has been on lisinopril, later ARB intermission coordinator as well as statin. Could be ischemic, but ddx is broad. Never smoker, works at [employer], denies significant alcohol or other substance use. TSH was 2.7. Is not aware of previous tachycardia episodes. -discussed with Dr. Longoria - will have coronary angiogram tomorrow, if significant CAD will need to consider risk:benefit of aspirin trial (had throat swelling and SOB episode as a child) vs clopidogrel -if no significant CAD, plan outpatient cardiac MRI -made referral to heart failure clinic -continue ARB and metoprolol - increase -no heart failure symptoms excepting KANG or volume overload at this time #Asthma - I wonder about the onset of this and whether intermittent wheezing and KANG could be pulmonary edema -tolerating low dose B-veronica without bronchospasm -not in exacerbation -cont control inhaler, PRN albuterol #Diabetes Recently diagnosed per recent PCP visit. A1c as of 06/25/2024 - 6.5% Diet controlled currently Hold off SSI - BG 139 on admission. Carb consistent Diet If BG rises, may need to consider insulin therapy while inpatient and outpatient PO regimen as well. #HLD, HTN - as above I updated his and other family at the bedside, discussed extensively with Dr. Longoria Admission and Anticipated Discharge Date Admission Date: August 29, 2024 Subjective No further SVT overnight, no dyspnea or chest pain, does not have leg edema orthopnea, pnd symptoms Physical Exam 2 Physical Exam: PHYSICAL EXAMINATION Last 24h vital signs reviewed, see documentation in flowsheet General: comfortable appearing, no distress HEENT: Normocephalic, atraumatic, pupils round and equal, sclerae anicteric, no conjunctival injection, moist mucus membranes Lungs: Normal respiratory effort. Clear to auscultation bilaterally. No RRW Heart: Regular rate and rhythm, no murmurs. No JVD Abdomen: nondistended. Extremities: Warm, dry, well-perfused. No extremity edema. Neuro: Alert and oriented x 4, face symmetric, moves 4 extremities well Psych: Normal affect and behavior Results & Data Results & Data Vital Signs (Past 12 Hours) Vital Signs Temp Pulse Pulse Resp BP BP Pulse Ox 08/30/24 14:49 97.5 F L 76 18 128/90 96 08/30/24 10:59 97.5 F L 76 16 121/87 95 08/30/24 07:20 98.2 F 76 18 116/71 95 08/30/24 07:00 78 O2 Del Method 08/30/24 14:49 Room Air 08/30/24 10:59 Room Air 08/30/24 07:20 Room Air 08/30/24 07:00 Laboratory Results 08/29/24 08:10 08/30/24 11:40 PG Care Time/CCT Total # of Minutes Spent Total Time Spent with Patient: Total time spent is greater than 50% in coordination of care (as documented) at patient's floor/unit and/or counseling patient: Coding Level of Care Code 23081 SUB INP/OBS CARE 3/50MIN Diagnoses SVT (supraventricular tachycardia) I47.10 Elevated troponin R79.89 Type 2 diabetes mellitus without complication, without long-term current use of insulin E11.9 Diabetes mellitus type: type 2 Diabetes mellitus intermission coordinator insulin use: without chcf use Diabetes mellitus complication status: without complication Cardiomyopathy I42.9 (3) Diabetes mellitus Diabetes mellitus type: type 2 Diabetes mellitus intermission coordinator insulin use: w ithout chcf use Diabetes mellitus complication status: without complication Qualified Code(s): E11.9 - Type 2 diabetes mellitus without complications
--- NOTE | 2024-08-30 17:41 | Cardiology Progress Note ---
Date of Service August 30, 2024 Assessment & Plan (1) SVT (supraventricular tachycardia): (2) Cardiomyopathy: (3) Elevated troponin: (4) Hypertension: (5) Hyperlipidemia: (6) Dyspnea on exertion: Plan ASSESSMENT/PLAN: 1. SVT: Symptomatic and converted to sinus rhythm following intravenous diltiazem in the ER. Recommend EP consultation, likely as an outpatient if no significant SVT burden while hospitalized, to consider EP study and ablation if deemed appropriate. If he has significant recurrence here, consider antiarrhythmic therapy such as amiodarone to manage until EPS available. 2. Cardiomyopathy: Had mildly reduced LV systolic function in the past but now severely reduced. He appears euvolemic. Increase metoprolol succinate to 50 mg daily tomorrow. Continue ARB. Will likely initiate mineralocorticoid receptor antagonist later this hospital stay. Cardiac catheterization tomorrow. N.p.o. after midnight. If with optimal medical therapy +/- revascularization if needed, LV systolic function does not significantly improved, ICD for primary prevention can be considered. If nonischemic, recommend optimal medical therapy for 3 months prior to ICD for primary prevention. If nonischemic, will consider outpatient cardiac MRI and other secondary workup as appropriate. Low-sodium diet. He appears euvolemic. NYHA class II. 3. Elevated troponin: Likely due to demand ischemia from prolonged SVT with heart rates near 200 bpm. Otherwise, no angina. Cardiac catheterization as above. Aspirin therapy was not given due to allergy as a child (he states that his mother told him that his throat started to close). 4. Hypertension: Blood pressure normotensive today. Titrating beta-veronica as above. Continue ARB and will likely titrate as well in the future. 5. Dyslipidemia: Continue statin therapy. If found to have CAD, would recommend high intensity statin therapy. 6. Dyspnea on exertion: He appears euvolemic. May be related to his cardiomyopathy. Cannot exclude coronary artery disease. Cardiac catheterization as above. 7. Disposition: Cardiology will continue to follow. Patient care discussed with primary hospitalist service, Dr. Oates, who was also present at the bedside for portions of today's visit. Will enroll in heart failure program to assist in titration of medical therapy. Admission and Anticipated Discharge Date Admission Date: August 29, 2024 Subjective Patient seen earlier today with multiple family members at the bedside, including his , brother, [id number], and son (Javon). He denies chest pain, shortness of breath, syncope, near syncope, palpitations, edema, or bleeding. He has not had any further jaw or neck pain. During our conversation, his son stated that he has had several of these symptoms in the past and was seen in the ER on multiple occasions and told that he was having anxiety issues. He then became acutely diaphoretic and stated that he felt like he was going to pass out. A chata lerner was called to help care for his son. He was then escorted to the ER by staff while in sinus rhythm with a normal heart rate. Physical Exam Physical Exam: Gen.: No acute distress. Alert and oriented. HEENT: Anicteric sclera. Neck: No JVD. Cardiac: Regular. Normal S1-S2. No murmurs, rubs, or gallops. Pulmonary: Clear to auscultation bilaterally without wheezes, rales, or rhonchi. Abdomen: Soft, nontender, nondistended, with normoactive bowel sounds. No bruits noted. Extremities: 2+ radial pulses bilaterally. 2+ posterior tibialis pulses bilaterally. No edema or cyanosis. Psychiatric: Affect appears appropriate. Results & Data Vital Signs (Past 12 Hours) Vital Signs Temp Pulse Pulse Resp BP BP Pulse Ox 08/30/24 14:49 36.4 C L 76 18 128/90 96 08/30/24 10:59 36.4 C L 76 16 121/87 95 08/30/24 07:20 36.8 C 76 18 116/71 95 08/30/24 07:00 78 O2 Del Method 08/30/24 14:49 Room Air 08/30/24 10:59 Room Air 08/30/24 07:20 Room Air 08/30/24 07:00 Intake & Output 08/28/24 08/29/24 08/30/24 08/31/24 06:59 06:59 06:59 06:59 Intake Total 1867.833 / 1867.833 360 / 360 Balance 1867.833 / 1867.833 360 / 360 Weight 214 lb 8.156 oz Laboratory Results Laboratory Results - last 24 hr 08/30/24 11:40 Sodium 137 Potassium 4.1 Chloride 104 Carbon Dioxide 27 Anion Gap 6 BUN 15 Creatinine 0.96 Est Cr Clr Drug Dosing 96.3 eGFR 91.05 BUN/Creatinine Ratio 15.6 Glucose 151 H Calcium 9.2 Magnesium 1.9 Troponin I High Sens 910.2 H* D Diagnostic Findings Labs reviewed and notable for stable renal function, normal potassium. Peak high-sensitivity troponin was 2089. Telemetry personally reviewed and notable for predominantly sinus rhythm, ectopy, and nonsustained ventricular tachycardia up to 4 beats in duration. ECG personally reviewed 08/30/2024 at 8:18 AM: Sinus rhythm with PVC 74 bpm. Anterolateral T wave abnormality. Medications Administered Current Inpatient Medications Acetaminophen (Acetaminophen 325 Mg Tab) 650 mg PO Q4H PRN PRN Reason: Pain or Fever Stop: 09/28/24 11:48 Enoxaparin Sodium (Enoxaparin Inj 40 Mg/0.4 Ml Syr) 40 mg SQ QPM [facility] Stop: 09/28/24 20:59 Last Admin: 08/29/24 20:32 Dose: 40 mg Metoprolol Succinate (Metoprolol Succ 25mg Ext Rel Tab) 25 mg PO QAM [facility] Stop: 09/28/24 17:29 Last Admin: 08/30/24 08:48 Dose: 25 mg Olmesartan (Olmesartan Medoxomil 5 Mg Tab) 5 mg PO DAILY [facility] Stop: 09/29/24 08:59 Last Admin: 08/30/24 08:50 Dose: 5 mg Polyethylene Glycol (Polyethylene (Miralax) 17 Gm Pack) 17 gm PO DAILY PRN PRN Reason: Constipation Stop: 09/28/24 11:48 Rosuvastatin Calcium (Rosuvastatin Calcium 10 Mg Tab) 10 mg PO QAM [facility] Stop: 09/29/24 08:59 Last Admin: 08/30/24 08:49 Dose: 10 mg Salmeterol Xinafoate (Salmeterol Xinafoate 50mcg 28 Blister Inh) 1 puffs INH BID@0800,1700 [facility] Stop: 09/29/24 07:59 Last Admin: 08/30/24 16:40 Dose: 1 puffs PG Care Time/CCT Total # of Minutes Spent Total Time Spent with Patient: Total time spent is greater than 50% in coordination of care (as documented) at patient's floor/unit and/or counseling patient: Coding Level of Care Code 51394 SUB INP/OBS CARE 3/50MIN Diagnoses SVT (supraventricular tachycardia) I47.10 Cardiomyopathy I42.9 Elevated troponin R79.89 Hypertension I10 Hyperlipidemia E78.5 Dyspnea on exertion R06.09
--- NOTE | 2024-08-30 21:18 | Electrocardiogram Report ---
Test Reason : Blood Pressure : */* mmHG Vent. Rate : 197 BPM Atrial Rate : * BPM P-R Int : * ms QRS Dur : 88 ms QT Int : 238 ms P-R-T Axes : * -12 246 degrees QTcB Int : 431 ms Supraventricular tachycardia Marked ST abnormality, possible inferior subendocardial injury Marked ST abnormality, possible anterolateral subendocardial injury Abnormal ECG When compared with ECG of 08-Jun-2024 11:26, Supraventricular tachycardia has replaced Sinus rhythm Vent. rate has increased by [address] now depressed in Inferolateral leads Confirmed by Neeraj Longoria ([id number]) on 08/30/2024 9:18:02 PM Referred By: REFERRED SELF Confirmed By: Neeraj Longoria
--- NOTE | 2024-08-30 21:20 | Electrocardiogram Report ---
Test Reason : Blood Pressure : */* mmHG Vent. Rate : 74 BPM Atrial Rate : 74 BPM P-R Int : 164 ms QRS Dur : 100 ms QT Int : 396 ms P-R-T Axes : 66 -20 71 degrees QTcB Int : 439 ms Sinus rhythm with occasional Premature ventricular complexes Possible Left atrial enlargement Abnormal ECG When compared with ECG of 29-Aug-2024 09:01, ST no longer depressed in Anterior leads Confirmed by Neeraj Longoria ([id number]) on 08/30/2024 9:19:45 PM Referred By: REFERRED SELF Confirmed By: Neeraj Longoria
[2024-08-31] MEDS: SODIUM CHLORIDE 0.9% 250 ML IV ONE ×2 (07:30→14:18)
[2024-08-31] MEDS: ATROPINE SULFATE 0.1 MG/ML 10ML SYR IV ONE ×2 (07:30→10:35)
[2024-08-31] MEDS ORDERED: ATROPINE SULFATE 0.1 MG/ML 10ML SYR IV STA (07:34)
[2024-08-31] MEDS: ATROPINE SULFATE 0.1 MG/ML 10ML SYR IV STA (07:55)
--- NOTE | 2024-08-31 08:17 | Hospitalist Progress Note ---
Date of Service August 31, 2024 Assessment & Plan (1) SVT (supraventricular tachycardia): (2) Elevated troponin: (3) Diabetes mellitus: (4) Cardiomyopathy: (5) Sinus bradycardia: Plan This is a 57 year old gentleman with past medical history of hypertension, hyperlipidemia, asthma, and recently diagnosed type 2 diabetes who presented to the ED on 08/29/2024 with a chief complaint of tachycardia. # symptomatic sinus bradycardia with hypotension - AM 08/31. I responded to code purple. He was acutely ill appearing, sinus magalis in high 30s, BP 70/40. - HR improved to 80s p 1 mg atropine IV, ordered 500 mL IV saline bolus, bp improved to 90/60 still hypotensive, symptomatically feels better - personally reviewed EKG which shows sinus bradycardia in 30s-40, no acute ST changes, he also had periods of junctional rhythm - stat labs drawn and pending: CBC BMP mag HS-trop lactate - reviewed - trop still downtrending at 640, H/H unchanged, Cr increased to 1.3 (from 0.9), LFT wnl, normal PT/PTT - discussed with bedside RNs and his , Dr. Longoria and laborer plumbing staff [place]mira re of event - held metoprolol - I personally spent 45 minutes critical care time at the bedside for life- threatening event ADDENDUM: following this he had several more symptomatic bradycardia episodes with hypotension in laborer plumbing holding, treated with doses of atropine, IV fluid bolus, eventually dopamine started. Eventually had recurrent SVT in laborer plumbing which caused hypotension, emergency cardioversion was being prepared but spontaneously converted to NSR - EP consulted by cardiology - transferred to ICU #SVT - narrow complex tachycardia - on admission, recurrent in laborer plumbing s/p Adenosine x 3, Diltiazem x 1, and Diltiazem drip started then stopped -remains in sinus rhythm with PVCs - reviewed tele -was tolerating metoprolol without evidence of bronchospasm, currently held for bradycardia -EP consult #Troponin elevation - HS trop peaked at 2000 night of admission overall downtrending -EKGs with nonspecific EKG changes -no significant CAD on angiogram 08/31 -probable myocardial demand ischemia from arrhythmias and hypotension -pending #Cardiomyopathy - had stress test over 10 years ago with mildly reduced EF of which he was unaware. Now severe with EF 25-30% on current Echo with global hypokinesis. Has been on lisinopril, later ARB terminal carman as well as statin. Could be ischemic, but ddx is broad. 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 TSH was 2.7. Is not aware of previous tachycardia episodes. -coronary angiogram negative for significant CAD -consulting EP - will be unable to use GDMT with recurrent symptomatic bradycardias -planned outpatient cardiac MRI -made referral to heart failure clinic -ARB/Metoprolol held for hypotension -no history of heart failure symptoms excepting KANG or volume overload at time of admission #Asthma - I wonder about the onset of this and whether intermittent wheezing and KANG could be pulmonary edema -was tolerating low dose B-veronica without bronchospasm -not in exacerbation -cont control inhaler, PRN albuterol #Diabetes Recently diagnosed per recent PCP visit. A1c as of 06/25/2024 - 6.5% Diet controlled currently Hold off SSI - BG 139 on admission. Carb consistent Diet If BG rises, may need to consider insulin therapy while inpatient and outpatient PO regimen as well. BG 166 today, ICU insulin protocol #HLD, HTN - as above I updated his at the bedside, discussed extensively with Dr. Longoria 08/31, discussed with pastrycook's assistant Admission and Anticipated Discharge Date Admission Date: August 29, 2024 Subjective Starting early this AM bp was trending down. Later was up trying to go to the bathroom developed weakness, lightheadedness, diaphoresis, sinus bradycardia HR in 30s-40s and hypotension 70/40 Code purple called at 7:15 to which I responded Feeling much better after atropine 1 mg HR in mid 90s, still hypotensive but improved to 90/60 after partial saline bolus. Was mildly dyspneic when hypotensive but improved, did not have chest pain. Metoprolol last dose was 25 mg succinate yesterday AM Anticipating laborer plumbing midmorning Physical Exam Physical Exam: PHYSICAL EXAMINATION Last 24h vital signs reviewed, see documentation in flowsheet General: ill appearing pale and diaphoretic HEENT: Normocephalic, atraumatic, pupils round and equal, sclerae anicteric, no conjunctival injection, dry mucus membranes Lungs: Normal respiratory effort. Clear to auscultation bilaterally. No RRW Heart: bradycardic, no murmurs. No JVD Abdomen: S/NT/ND Extremities: Clammy and cool Neuro: Alert and oriented x 4, face symmetric, moves 4 extremities well Psych: Normal affect and behavior Results & Data Results & Data Vital Signs (Past 12 Hours) Vital Signs Temp Pulse Pulse Resp BP Pulse Ox O2 Del Method 08/31/24 07:32 82 20 89/60 L 93 Nasal Cannula 08/31/24 06:50 97.5 F L 08/31/24 06:44 50 L 18 72/50 L 92 Nasal Cannula 08/31/24 03:15 98.2 F 91 H 17 106/72 95 Room Air 08/30/24 23:28 73 08/30/24 22:51 98.1 F 74 18 120/75 96 Room Air O2 Flow Rate 08/31/24 07:32 1 08/31/24 06:50 08/31/24 06:44 2 08/31/24 03:15 08/30/24 23:28 08/30/24 22:51 Laboratory Results stat labs pending 08/31/24 08/31/24 08/31/24 Range/Units 16:19 07:30 06:42 WBC 8.31 (4.8-10.8) K/ul RBC 4.76 (4.70-6.10) M/uL Hgb 15.2 (14.0-18.0) g/dl Hct 44.0 (42.0-52.0) % MCV 92.4 (80.0-100.0) fL MCH 31.9 (25.0-34.0) pg MCHC 34.5 (32.0-36.0) g/dL RDW Std Deviation 43.8 (36.4-46.3) fL RDW Coeff of Afshan 12.9 (11.5-14.5) % Plt Count 218 (130-400) K/uL MPV 11.0 (9.4-12.4) fL PT 10.8 (9.0-12.0) Seconds INR 1.0 (0.9-1.1) APTT 23 (21-31) Seconds PTT Ratio 0.9 Sodium 138 (136-145) mmol/L Potassium 4.6 (3.5-5.1) mmol/L Chloride 106 (98-107) mmol/L Carbon Dioxide 26 (21-32) mmol/L Anion Gap 6 (3-11) BUN 17 (6-23) mg/dl Creatinine 1.31 D (0.6-1.4) mg/dl Est Cr Clr Drug Dosing 70.6 ml/min eGFR 62.70 BUN/Creatinine Ratio 13.0 (10-20) Glucose 194 H (70-99(Fasting)) mg/dl POC Glucose 166 H 129 H (70-99) mg/dl Calcium 8.7 (8.6-10.3) mg/dl Total Bilirubin 0.7 (0.2-1.0) mg/dl AST 23 (13-39) U/L ALT 27 (7-52) U/L Alkaline Phosphatase 59 (34-104) U/L Troponin I High Sens 640.5 H* D (0-20) pg/ml Total Protein 6.5 (6.0-8.3) gm/dl Albumin 4.2 (3.4-5.0) gm/dl Globulin 2.3 L (2.5-4.0) gm/dl Albumin/Globulin Ratio 1.8 (0.9-2) PG Care Time/CCT Total # of Minutes Spent Total Time Spent with Patient: Total time spent is greater than 50% in coordination of care (as documented) at patient's floor/unit and/or counseling patient: Critical Care Time: Yes Total Critical Care Time: 45 Coding Level of Care Code 11359 SUB INP/OBS CARE 3/50MIN Diagnoses SVT (supraventricular tachycardia) I47.10 Elevated troponin R79.89 Type 2 diabetes mellitus without complication, without long-term current use of insulin E11.9 Diabetes mellitus complication status: without complication Diabetes mellitus terminal carman insulin use: without group home use Diabetes mellitus type: type 2 Cardiomyopathy I42.9 Sinus bradycardia R00.1 Additional Codes Critical Care Time - Critical Care Time: Yes ([id number]) (3) Diabetes mellitus Diabetes mellitus complication status: without complication Diabetes mellitus terminal carman insulin use: without terminal carman use Diabetes mellitus type: type 2 Qualified Code(s): E11.9 - Type 2 diabetes mellitus without complications
[2024-08-31] MEDS ORDERED: METOPROLOL SUCC 50MG EXT REL TAB PO SCH (09:00)
--- NOTE | 2024-08-31 09:29 | Pre Anesthesia Assessment ---
Date of Service August 31, 2024 Pre Sedation Assessment Vital Signs Temp Pulse Pulse Pulse Resp BP BP 08/31/24 07:32 82 20 89/60 L 08/31/24 06:50 36.4 C L 08/31/24 06:44 50 L 18 72/50 L 08/31/24 03:15 36.8 C 91 H 17 106/72 08/30/24 23:28 73 08/30/24 22:51 36.7 C 74 18 120/75 08/30/24 19:00 36.7 C 84 21 119/85 08/30/24 15:00 79 08/30/24 14:49 36.4 C L 76 18 128/90 08/30/24 10:59 36.4 C L 76 16 121/87 Pulse Ox O2 Del Method O2 Flow Rate 08/31/24 07:32 93 Nasal Cannula 1 08/31/24 06:50 08/31/24 06:44 92 Nasal Cannula 2 08/31/24 03:15 95 Room Air 08/30/24 23:28 08/30/24 22:51 96 Room Air 08/30/24 19:00 95 Room Air 08/30/24 15:00 08/30/24 14:49 96 Room Air 08/30/24 10:59 95 Room Air Cardiovascular RRR, no murmur, no edema + regular rate Respiratory normal respiratory effort, lungs clear to auscultation Pre-Sedation Airway Assessment Smoking Status: Never smoker Mallampati Class: II ASA: ASA3 NPO Status Date of Last Intake of Fluids: 08/31/24 Time of Last Intake of Fluids: 09:00 Date of Last Intake of Solid Food: 08/30/24 Time of Last Intake of Solid Foods: 18:00 Procedure Planning Contraindications for Sedation: none Current Medications Reviewed: Yes Notes The planned sedation has been discussed with the patient. Informed Consent was obtained. I have identified the patient, determined the appropriateness of sedation and have assessed the patient immediately prior to the procedure. All medicine(s) and interventions are by my order.
--- NOTE | 2024-08-31 09:37 | Cardiology Progress Note ---
Date of Service August 31, 2024 Assessment & Plan (1) SVT (supraventricular tachycardia): (2) Cardiomyopathy: (3) Elevated troponin: (4) Hypertension: (5) Hyperlipidemia: (6) Dyspnea on exertion: (7) Symptomatic bradycardia: (8) CAD (coronary artery disease): Plan ASSESSMENT/PLAN: 1. SVT: Symptomatic and converted to sinus rhythm following intravenous diltiazem in the ER. EP consultation placed for consideration of EP study and ablation. Had another episode of SVT during cardiac catheterization well diagnostic catheter was in the ventricle and likely caused consecutive PVCs followed by SVT which caused hypotension with blood pressures in the 70s noted on arterial waveform. He spontaneously converted while planning to perform DC cardioversion. 2. Cardiomyopathy: Nonischemic. Had mildly reduced LV systolic function in the past but now severely reduced. He appears euvolemic. Beta-veronica held today given symptomatic bradycardia. Continue ARB. Will likely initiate mineralocorticoid receptor antagonist later this hospital stay depending on blood pressure. LV EDP was not significantly elevated. He appears euvolemic. Etiology uncertain. Consider outpatient cardiac MRI. Secondary workup labs to be performed. Consider ICD sooner, especially with symptomatic bradycardia after presenting with SVT. Electrophysiology consulted. 3. Symptomatic bradycardia: Seems to have high vagal tone and has history of syncope with bowel movements and more frequently, near syncope. With cardiomyopathy, seems to be tolerating increased vagal tone poorly and received atropine on 2 separate occasions today for such events, sometimes sinus bradycardia with intermittent junctional bradycardia. Dopamine 5 mcg/kg/min initiated and titrated to 10 mcg/kg/min briefly before reduced back to 5. Blood pressure and heart rate has remained well-controlled with dopamine. Dr. Bird of electrophysiology was asked to evaluate for device to help maintain adequate heart rate given his dramatic symptoms in the setting of cardiomyopathy. (Fractured neck years ago with syncope during bowel movement). Transferred to ICU given multiple events today requiring atropine and dopamine drip. 4. CAD: Nonobstructive (ostial D1). Allergic to aspirin. Continue statin therapy. LDL well-controlled. No angina. 5. Elevated troponin: Likely due to demand ischemia from prolonged SVT with heart rates near 200 bpm. Otherwise, no angina. Cardiac catheterization as above. Aspirin therapy was not given due to allergy as a child (he states that his mother told him that his throat started to close). 6. Hypertension: Hypertensive history but issues with hypotension today which seems to be vagally mediated and accompanied by bradycardia. Dopamine initiated with improvement of his vitals. 7. Dyslipidemia: Continue statin therapy. Consider high intensity statin therapy although LDL seems to be well-controlled, for nonobstructive CAD. 8. Dyspnea on exertion: He appears euvolemic. May be related to his cardiomyopathy. Nonobstructive CAD. NYHA class II. 9. Disposition: Transfer to ICU status. Patient care discussed multiple times today with Dr. Oates of the primary hospitalist service. Discussed with Dr. Messina of the critical care team who is agreeable for critical care. Patient care also discussed with Dr. Bird of electrophysiology. Appreciate assistance of these other providers. Highly complex medical issues. 65 minutes of critical care time provided, not including time spent for cardiac catheterization. Admission and Anticipated Discharge Date Admission Date: August 29, 2024 Subjective He was having a bowel movement today and admits that he was having abdominal cramping and pushing due to constipation. He then became diaphoretic and near syncopal. He laid down in bed. He bradycardia down into the 30s and 40s and was mostly sinus bradycardia but also episodes of junctional. At first he said he never had this happen like this before but after further questioning, describes near syncope at home with bowel movements where he has to lay down in his bed for a few minutes and 4 years ago, had syncope with abdominal cramping and diarrhea. He had syncope while on the commode and fractured his neck. A code purple was called by nursing staff this morning and he received atropine which improved his heart rate and blood pressure. He had become hypotensive during the event with a blood pressure of 72/50 mmHg reported. He denies syncope or near syncope at other times. He denies chest pain, shortness of breath, palpitations, edema, or bleeding. His was present at the bedside. Later today, while awaiting cardiac catheterization, he had another sensation to have a bowel movement while in bed and had bradycardia but maintained sinus bradycardia into the upper 40s and low 50s. He also became hypotensive with systolic blood pressure in the 70s. An additional dose of atropine 0.5 mg IV was ordered and administered. Heart rate promptly improved as did blood pressure. Physical Exam Physical Exam: Gen.: No acute distress. Alert and oriented. HEENT: Anicteric sclera. Neck: No JVD. Cardiac: Regular. Normal rate. Normal S1-S2. No murmurs, rubs, or gallops. Pulmonary: Clear to auscultation bilaterally without wheezes, rales, or rhonchi. Abdomen: Soft, nontender, nondistended, with normoactive bowel sounds. No bruits noted. Extremities: 2+ radial pulses bilaterally. 2+ posterior tibialis pulses bilaterally. No edema or cyanosis. Psychiatric: Affect appears appropriate. Results & Data Vital Signs (Past 12 Hours) Vital Signs Temp Pulse Pulse Resp BP Pulse Ox O2 Del Method 08/31/24 07:32 82 20 89/60 L 93 Nasal Cannula 08/31/24 06:50 36.4 C L 08/31/24 06:44 50 L 18 72/50 L 92 Nasal Cannula 08/31/24 03:15 36.8 C 91 H 17 106/72 95 Room Air 08/30/24 23:28 73 08/30/24 22:51 36.7 C 74 18 120/75 96 Room Air O2 Flow Rate 08/31/24 07:32 1 08/31/24 06:50 08/31/24 06:44 2 08/31/24 03:15 08/30/24 23:28 08/30/24 22:51 Intake & Output 08/29/24 08/30/24 08/31/24 09/01/24 06:59 06:59 06:59 06:59 Intake Total 1867.833 / 1867.833 720 / 720 Balance 1867.833 / 1867.833 720 / 720 Weight 214 lb 8.156 oz 209 lb 7.026 oz Laboratory Results Laboratory Results - last 24 hr 08/30/24 08/31/24 11:40 06:42 Sodium 137 Potassium 4.1 Chloride 104 Carbon Dioxide 27 Anion Gap 6 BUN 15 Creatinine 0.96 Est Cr Clr Drug Dosing 96.3 eGFR 91.05 BUN/Creatinine Ratio 15.6 Glucose 151 H POC Glucose 129 H Calcium 9.2 Magnesium 1.9 Troponin I High Sens 910.2 H* D Diagnostic Findings Telemetry personally reviewed: At approximately 6:32 AM, he gradually became bradycardic and remained in sinus. There was intermittent junctional bradycardia. Heart rate was as low as approximately 35 bpm. The episode lasted approximately 48 minutes and then his heart rate improved after receiving atropine. Labs reviewed and notable for normal potassium, normal renal function, normal magnesium. ECG personally reviewed 08/31/2023 at 6:42 AM: Sinus bradycardia at 44 bpm with PVC and junctional escape beat. Incomplete RBBB. Cardiac Cath 08/31/2024: Coronary angiography: 1. Left main: No significant CAD. 2. Left anterior descending: Large caliber vessel that wraps around the apex. No significant CAD within the LAD. Large D1 with ostial 40%. Large D2 without significant CAD. 3. Circumflex: No significant CAD within the circumflex, OM1, OM 2 branches. 4. Right coronary artery: RCA is large and dominant. No significant CAD within the RCA, PDA, PL. Left heart catheterization: 1. Left ventriculography was not performed. 2. No significant aortic stenosis. 3. LVEDP 12 mmHg. Moderate sedation: 1. Sedation start time: 12:01 PM 2. Sedation end time: 12:25 PM Access/catheters: 1. Right radial artery without known complication. 2. 6 [place] JL 3.5 and JR4 diagnostic catheters. Procedural notes: 1. With the JR4 diagnostic catheter in the LV, there was a brief nonsustained ventricular run of approximately 5 beats and then what appeared to be a narrow complex tachycardia with heart rates in the 150s to 160s that was sustained. He was asymptomatic however he became hypotensive with systolic blood pressure dropping into the 70s. Additional sedation was given and preparations were being made for synchronized cardioversion when he spontaneously converted to sinus rhythm. Medications Administered Current Inpatient Medications Acetaminophen (Acetaminophen 325 Mg Tab) 650 mg PO Q4H PRN PRN Reason: Pain or Fever Stop: 09/28/24 11:48 Enoxaparin Sodium (Enoxaparin Inj 40 Mg/0.4 Ml Syr) 40 mg SQ QPM [facility] Stop: 09/28/24 20:59 Last Admin: 08/30/24 20:28 Dose: 40 mg Metoprolol Succinate (Metoprolol Succ 50mg Ext Rel Tab) 50 mg PO QAM [facility] Stop: 09/30/24 08:59 Olmesartan (Olmesartan Medoxomil 5 Mg Tab) 5 mg PO DAILY [facility] Stop: 09/29/24 08:59 Last Admin: 08/30/24 08:50 Dose: 5 mg Polyethylene Glycol (Polyethylene (Miralax) 17 Gm Pack) 17 gm PO DAILY PRN PRN Reason: Constipation Stop: 09/28/24 11:48 Rosuvastatin Calcium (Rosuvastatin Calcium 10 Mg Tab) 10 mg PO QAM [facility] Stop: 09/29/24 08:59 Last Admin: 08/30/24 08:49 Dose: 10 mg Salmeterol Xinafoate (Salmeterol Xinafoate 50mcg 28 Blister Inh) 1 puffs INH BID@0800,1700 [facility] Stop: 09/29/24 07:59 Last Admin: 08/30/24 16:40 Dose: 1 puffs PG Care Time/CCT Total # of Minutes Spent Total Time Spent with Patient: Total time spent is greater than 50% in coordination of care (as documented) at patient's floor/unit and/or counseling patient: Critical Care Time: Yes Total Critical Care Time: 65 Coding Level of Care Code 33930 CRITICAL CARE 1ST 30-74M Diagnoses SVT (supraventricular tachycardia) I47.10 Cardiomyopathy I42.9 Elevated troponin R79.89 Hypertension I10 Hyperlipidemia E78.5 Dyspnea on exertion R06.09 Symptomatic bradycardia R00.1 CAD (coronary artery disease) I25.10 Additional Codes Critical Care Time - Critical Care Time: Yes ([id number])
--- NOTE | 2024-08-31 09:38 | Electrocardiogram Report ---
Test Reason : Blood Pressure : */* mmHG Vent. Rate : 90 BPM Atrial Rate : 90 BPM P-R Int : 170 ms QRS Dur : 110 ms QT Int : 362 ms P-R-T Axes : 53 -25 90 degrees QTcB Int : 442 ms Sinus rhythm with occasional Premature ventricular complexes Nonspecific ST and T wave abnormality Abnormal ECG When compared with ECG of 29-Aug-2024 08:12, Premature ventricular complexes are now Present Sinus rhythm has replaced Supraventricular tachycardia Vent. rate has decreased by [address] less depressed in Anterior leads T wave inversion no longer evident in Inferior leads Confirmed by Neeraj Longoria ([id number]) on 08/31/2024 9:38:25 AM Referred By: REFERRED SELF Confirmed By: Neeraj Longoria
--- NOTE | 2024-08-31 09:40 | Electrocardiogram Report ---
Test Reason : Blood Pressure : */* mmHG Vent. Rate : 44 BPM Atrial Rate : * BPM P-R Int : * ms QRS Dur : 112 ms QT Int : 540 ms P-R-T Axes : * -58 58 degrees QTcB Int : 461 ms Sinus bradycardia with occasional Premature ventricular complexes and with junctional escape complexe s Left axis deviation Incomplete right bundle branch block Cannot rule out Inferior infarct , age undetermined Abnormal ECG When compared with ECG of 30-Aug-2024 08:18, Juncitonal escape beat and PVC are now present Vent. rate has decreased by 30 bpm Incomplete right bundle branch block is now Present Confirmed by Neeraj Longoria ([id number]) on 08/31/2024 9:40:05 AM Referred By: REFERRED SELF Confirmed By: Neeraj Longoria
[2024-08-31] MEDS ORDERED: STAT IV Infusion **Titration per Protocol STA (10:42)
[2024-08-31] MEDS: DOPamine 400MG / 250ML D5W (Cath Lab Use ONLY) IV ONE (11:09)
[2024-08-31 11:46] LABS: Albumin Globulin Ratio 1.8 (0.9-2); Albumin Level 4.2 gm/dl (3.4-5.0); Bilirubin,Total 0.7 mg/dl (0.2-1.0); Calcium 8.7 mg/dl (8.6-10.3); Creatinine Clr Calc Pharmacy 70.6 ml/min; Globulin 2.3 gm/dl (2.5-4.0); Potassium 4.6 mmol/L (3.5-5.1); Total Protein 6.5 gm/dl (6.0-8.3)
[2024-08-31 11:49] LABS: Hemoglobin 15.2 g/dl (14.0-18.0); Mean Corpuscular Hemoglobin 31.9 pg (25.0-34.0); Mean Corpuscular Hgb Conc 34.5 g/dL (32.0-36.0); Mean Corpuscular Volume 92.4 fL (80.0-100.0); Platelet Count 218 K/uL (130-400); RDW Coefficient of Variation 12.9 % (11.5-14.5); RDW Standard Deviation 43.8 fL (36.4-46.3); Red Blood Count 4.76 M/uL (4.70-6.10); White Blood Count 8.31 K/ul (4.8-10.8)
[2024-08-31 11:55] LABS: Troponin I High Sensitivity 640.5 pg/ml (0-20)
[2024-08-31] MEDS: niCARdipine 2,000 MCG/20 ML SYR ONE (12:06)
[2024-08-31 12:08] LABS: Partial Thromboplastin Ratio 0.9; Partial Thromboplastin Time 23 Seconds (21-31); Prothrombin Time 10.8 Seconds (9.0-12.0)
[2024-08-31] MEDS: HEPARIN (PORCINE) 1000 UNIT/ML 10 ML (CATH LAB USE ONLY) ONE (12:20)
[2024-08-31] MEDS: MIDAZOLAM HCL 1 MG/ML 2ML VIAL ONE (12:20)
[2024-08-31] MEDS: fentaNYL citrate PF 100 MCG/2 ML VIAL ONE (12:21)
[2024-08-31] MEDS: OPTIRAY 350 ONE (12:22)
[2024-08-31] MEDS: NITROGLYCERIN/D5W 100MCG/ML 20ML SYR ONE (12:23)
--- NOTE | 2024-08-31 12:31 | Cardiac Catheterization ---
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 Cardiac Status Clinical evaluation leading to the procedure CAD Presenation: No Sxs, No angina Anginal Classification: No Symptoms Heart Failure: No Cardiogenic Shock within 24 Hours: No Cardiac Arrest within 24 Hours: No Imaging Studies Past 6 Months: Yes Stress Studies Past 6 Months: No Coronary Anatomy Dominant: Right Diagnostic Physicians Name: Neeraj Longoria MD Status: Elective Closure Device Percutaneous Entry Location: Radial Closure Device: Radial Band Recommendations: Management Recommendatons Cardiac Cath Procedure Full Procedure Date August 31, 2024 Pre-Procedure Diagnosis Pre-Procedure Diagnosis: Cardiomyopathy AUC Score AUC Score: 7 Post-Procedure Diagnosis Post-Procedure Diagnosis: Mild CAD Procedure(s) Performed Procedure(s) Performed: Coronary Angiography and Left Heart Cath Jeweler Apprentice Neeraj Longoria MD Refinery Operator Visbreaking(s) [place] Estimated Blood Loss Estimated Blood Loss: < 20 ml Medication(s) Medication(s): Fentanyl, Heparin, Lidocaine 1%, Nicardipine and Versed Summary of Findings Procedures: 1. Coronary angiography 2. Left heart catheterization 3. Moderate sedation Indication: Mr. Payton is a pleasant 59-year-old gentleman with a history significant for hypertension, dyslipidemia, type 2 diabetes, cardiomyopathy, SVT, and intermittent symptomatic bradycardia which appears to be vagal mediated. Coronary angiography: 1. Left main: No significant CAD. 2. Left anterior descending: Large caliber vessel that wraps around the apex. No significant CAD within the LAD. Large D1 with ostial 40%. Large D2 without significant CAD. 3. Circumflex: No significant CAD within the circumflex, OM1, OM 2 branches. 4. Right coronary artery: RCA is large and dominant. No significant CAD within the RCA, PDA, PL. Left heart catheterization: 1. Left ventriculography was not performed. 2. No significant aortic stenosis. 3. LVEDP 12 mmHg. Moderate sedation: 1. Sedation start time: 12:01 PM 2. Sedation end time: 12:25 PM Access/catheters: 1. Right radial artery without known complication. 2. 6 [place] JL 3.5 and JR4 diagnostic catheters. Procedural notes: 1. With the JR4 diagnostic catheter in the LV, there was a brief nonsustained ventricular run of approximately 5 beats and then what appeared to be a narrow complex tachycardia with heart rates in the 150s to 160s that was sustained. He was asymptomatic however he became hypotensive with systolic blood pressure dropping into the 70s. Additional sedation was given and preparations were being made for synchronized cardioversion when he spontaneously converted to sinus rhythm. Impression: 1. Nonobstructive CAD. 2. Nonischemic cardiomyopathy. Plan: 1. Optimize therapy for nonischemic cardiomyopathy. 2. Electrophysiology consultation for SVT and also symptomatic bradycardia. Hemodynamics Rest Ao:: 97/58 Final Ao: 88/51 LV: 95/2/12 Recommendations Recommendations: Management Recommendatons Specimens Specimens: None Radiation Exposure (mGy) 761 mGy. Fluoro time 2.5 min. Contrast (mls) 55 ml Procedural Complication(s) None Disposition ICU I attest to the content of the Intraoperative Record and any orders documented therein. Any exceptions are noted below. [facility] Card Cath Procedure Codes Cardiac Catheterization Procedure 1: Cardiovascular Cath Procedures: 54498 Coronaries and LHC (+/-LV) Moderate Sedation Procedure 1: Sedation/Anesthesia: 57580 Mod Sedation by the same physician;Init15 Min Child Age 5 & Up Procedure 2: Sedation/Anesthesia: 37751 Mod Sedation by the same physician; Ea [id number] Minutes PG Care Time/CCT Total # of Minutes Spent Total Time Spent with Patient: Total time spent is greater than 50% in coordination of care (as documented) at patient's floor/unit and/or counseling patient:
--- NOTE | 2024-08-31 12:46 | Post Anesthesia Assessment ---
Date of Service August 31, 2024 Post Sedation Assessment Vital Signs Temp Pulse Pulse Pulse Resp BP BP 08/31/24 12:45 74 18 109/63 08/31/24 12:30 73 18 111/49 L 08/31/24 09:53 75 18 112/69 08/31/24 08:00 76 08/31/24 08:00 08/31/24 07:32 82 20 08/31/24 06:50 36.4 C L 08/31/24 06:44 50 L 18 08/31/24 03:15 36.8 C 91 H 17 08/30/24 23:28 73 08/30/24 22:51 36.7 C 74 18 08/30/24 19:00 36.7 C 84 21 08/30/24 15:00 79 08/30/24 14:49 36.4 C L 76 18 128/90 BP Pulse Ox O2 Del Method O2 Flow Rate 08/31/24 12:45 98 Room Air 08/31/24 12:30 98 Room Air 08/31/24 09:53 95 Room Air 08/31/24 08:00 08/31/24 08:00 Nasal Cannula 2 08/31/24 07:32 89/60 L 93 Nasal Cannula 1 08/31/24 06:50 08/31/24 06:44 72/50 L 92 Nasal Cannula 2 08/31/24 03:15 106/72 95 Room Air 08/30/24 23:28 08/30/24 22:51 120/75 96 Room Air 08/30/24 19:00 119/85 95 Room Air 08/30/24 15:00 08/30/24 14:49 96 Room Air Recovery Score Activity: Moves 4 extremities Respiration: Deep Breath/Cough Circulation: +/-20% PreAnes Value Consciousness: Fully Awake Oxygen Saturation: > 92% On Room Air Post Anesthesia Score: 10 Discharge Sedation Level of Care: Fast Track Phase II Post Sedation Plan On clinical assessment, the patient appears to have tolerated the sedation without complications. Patient is recovering as anticipated. Patient will continue to be monitored by nursing and may be discharged when sedation discharge criteria are met per below protocol. Upon Completions of procedure up to 15 minutes continue every 5 minute vital signs and the P.A.R. score; then discharge to a Phase I or Fast Track to Phase II per the following guidelines: * Discharge Patient to appropriate Phase II area if PAR is 8 or greater or return to pre- procedure baseline. The post - procedure orders will be as directed. * If PAR score is less than 8 or not return to pre-procedure baseline then patient will follow Phase I monitoring till PAR is reached for Phase II. The Phase I may be done in procedure room or may call to secure a Phase I area. * If naloxone or flumazenil are used for reversal, hold in Phase I for continued monitoring from when last reversal dose was given for a minimum of 60 minutes or longer pending the nurse and/or physician discretion of patient condition before discharge to Phase II. Please call the Sedation Physician to re-evaluate and complete post-note for discharge to Phase II area. Do NOT discharge from procedure sedation or Phase 1 until post- sedation evaluation note is complete by procedure /sedation MD Sedation Discharge Instructions to be given to the patient at discharge to home.
[2024-08-31] MEDS: ONDANSETRON INJ 2 MG/ML 2 ML VIAL ONE ×2 (12:56→16:06)
[2024-08-31] MEDS: DOPamine / D5W 400 MG/250 ML BAG IV SCH (13:45)
[2024-08-31] MEDS: DOBUTamine 1000 MG/250ML D5W IV ONE (14:15)
--- NOTE | 2024-08-31 15:04 | Critical Care Consultation ---
Date of Consultation August 31, 2024 Assessment & Plan (1) Symptomatic bradycardia: (2) SVT (supraventricular tachycardia): (3) Cardiomyopathy: (4) Asthma: Plan Impression: 59-year-old male with supraventricular tachycardia and cardiomyopathy of unclear etiology. He is in the ICU receiving dopamine to treat hypotension and bradycardia pending electrophysiology evaluation. Recommendation: 1. SVT with symptomatic bradycardia: Continue dopamine for now. Await evaluation by electrophysiology for potential PPM/AICD. 2. Cardiomyopathy: Hemodynamically stable on dopamine for now. Will require goal-directed therapy and additional evaluation per cardiology once his EP issues have been addressed. 3. History of asthma: Would not recommend monotherapy with a long-acting beta agonist. Will replace with Breo. He can use DuoNebs on an as-needed basis. Outpatient PFTs may be reasonable. 4. Serum creatinine increased to 1.3 today from baseline of around 0.95-1.1. Continue to follow closely with contrast load. 5. Glycemic control per ICU protocol. Will continue to observe in the ICU while the patient is on vasoactive medications. Discussed with patient, , and bedside critical care nurse. History of Present Illness Attending Physician: Carmina Oates MD History of Present Illness Asked by hospitalist and cardiology to assist in evaluation management this patient with unstable tachybradycardia syndrome and hypotension requiring vasopressor agents coming out of [facility]. History is obtained from discussion with the patient as well as discussed with cardiology and reviewed the electronic medical record. Patient is a 59-year-old male who was admitted to the hospital 08/29/2024. He has a questionable history of asthma and uses Serevent in the outpatient setting. He was initially hospitalized a few days prior after presenting with supraventricular tachycardia. 1 week prior to presentation, he had intermittent palpitations. He has had several syncopal episodes in the past usually related to a Valsalva maneuver. He initially presented with heart rates in the 200s which were narrow complex. He received diltiazem and resolved. She was observed over the weekend. Earlier this morning he had an episode of bradycardia again while having a bowel movement. He was hypotensive and responded to atropine. He was taken to the [facility] where he had a similar episode in the holding area. Already a catheterization was performed which did reveal a decreased ejection fraction but no obvious coronary disease. He had SVT in the lab which broke but then required initiation of dopamine to treat bradycardia and the patient was subsequently transferred to the intensive care unit. Patient is currently awake alert and conversant. He is in no distress. He denies chest pain palpitations or significant lower extremity edema. Patient reports a longstanding history of asthma. He was initially diagnosed in his childhood. He has been on Serevent through his primary care provider for quite some time. No PFTs available. His remaining medical history and review of systems was reviewed in the admission H&P. Please refer to that document for additional details Allergies Allergy/AdvReac Type Severity Reaction Status Date / Time aspirin Allergy Severe Shortness Verified 08/31/24 09:55 of Breath codeine Allergy Severe Shortness Verified 08/31/24 09:55 of Breath Penicillins Allergy Severe Shortness Verified 08/31/24 09:55 of Breath Home Medications Medication Instructions Recorded Confirmed Type olmesartan 5 mg tablet 5 mg PO QAM 06/12/24 08/29/24 History rosuvastatin 10 mg tablet 10 mg PO QAM 06/12/24 08/29/24 History salmeterol 50 mcg/dose blister 1 inh inhalation BID #180 ea 06/25/24 08/29/24 Rx powder for inhalation (Serevent Diskus) Patient History Medical History Encounter for pre-operative examination Skin lesion of neck Pre-diabetes HERRERA-inhibitor cough PONV (postoperative nausea and vomiting) Skin lesion of neck Pre-diabetes Hypertension Hyperlipidemia Asthma Surgical History (Updated 07/01/24 @ 15:15 by Joan Ponce) Hx of arthroscopy of left knee Hx of colonoscopy (2016) History of surgery Excision of Left Neck Lesion, 04/02/2024 - Dr. Osborn. Done in clinic under local anesthesia 06/23/24-Removal of left-sided post auricular lesion-Dr. 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 History of back surgery Lumbar History of appendectomy Family History Uncle Coronary heart disease Aunt Coronary heart disease Father Coronary heart disease Diabetes Hypertension Social History Smoking Status: Never smoker Second Hand Exposure: No; Do You Dip or Chew Tobacco: No; Hx Alcohol Use: No Hx Substance Use: No Preferred Language: Azeri Communication Ability: Effective Farm Technician Required: No Beliefs That Will Affect Care: None marital status: Current Living Situation: Spouse current occupational status: employed current occupation: [employer] How many Children do You have: 3 Feels Safe at Home: Yes Safety Concerns: Feels Safe At This Time Childhood Exposure to Second-Hand Smoke: No Diet: regular caffeine: Yes Dental Care, Regularly: No Physical Activity Frequency: Daily Seatbelt Use: always Sunscreen Use: No Assistive Devices: Glasses Review of Systems Review of Systems: Please refer to admission H&P Physical Exam Constitutional: WD/WN, vitals as above Neck: trachea midline, no thyromegaly Respiratory: normal respiratory effort, lungs clear to auscultation Cardiovascular: RRR, no murmur, no edema Gastrointestinal (Abdomen): normal bowel sounds, soft, nontender, no hepatosplenomegaly Musculoskeletal: Extremities: extremities normal to inspection Skin: no rashes, warm and dry Neurologic: Nonfocal exam Lymphatic: no cervical lymphadenopathy Results & Data Results & Data Vital Signs (Past 12 Hours) Vital Signs Temp Pulse Pulse Pulse Resp BP BP 08/31/24 14:15 69 16 93/51 L 08/31/24 14:00 63 16 102/46 L 08/31/24 13:45 08/31/24 13:45 36.7 C 60 15 94/54 L 08/31/24 13:30 64 18 100/54 L 08/31/24 13:15 76 18 98/60 L 08/31/24 13:00 82 18 89/76 L 08/31/24 12:45 74 18 109/63 08/31/24 12:30 73 18 111/49 L 08/31/24 09:53 75 18 112/69 08/31/24 08:00 76 08/31/24 08:00 08/31/24 07:32 82 20 08/31/24 06:50 36.4 C L 08/31/24 06:44 50 L 18 08/31/24 03:15 36.8 C 91 H 17 BP Pulse Ox O2 Del Method O2 Flow Rate 08/31/24 14:15 97 Nasal Cannula 2 08/31/24 14:00 89 L Room Air 08/31/24 13:45 Nasal Cannula 2 08/31/24 13:45 92 Room Air 08/31/24 13:30 98 Room Air 08/31/24 13:15 98 Room Air 08/31/24 13:00 98 Room Air 08/31/24 12:45 98 Room Air 08/31/24 12:30 98 Room Air 08/31/24 09:53 95 Room Air 08/31/24 08:00 08/31/24 08:00 Nasal Cannula 2 08/31/24 07:32 89/60 L 93 Nasal Cannula 1 08/31/24 06:50 08/31/24 06:44 72/50 L 92 Nasal Cannula 2 08/31/24 03:15 106/72 95 Room Air Critical Care Results & Data Vital Signs (Past 12 Hours) Vital Signs Temp Pulse Pulse Pulse Resp BP BP 08/31/24 14:45 75 21 114/55 L 08/31/24 14:15 69 16 93/51 L 08/31/24 14:00 63 16 102/46 L 08/31/24 13:45 08/31/24 13:45 36.7 C 60 15 94/54 L 08/31/24 13:30 64 18 100/54 L 08/31/24 13:15 76 18 98/60 L 08/31/24 13:00 82 18 89/76 L 08/31/24 12:45 74 18 109/63 08/31/24 12:30 73 18 111/49 L 08/31/24 09:53 75 18 112/69 08/31/24 08:00 76 08/31/24 08:00 08/31/24 07:32 82 20 08/31/24 06:50 36.4 C L 08/31/24 06:44 50 L 18 08/31/24 03:15 36.8 C 91 H 17 BP Pulse Ox O2 Del Method O2 Flow Rate 08/31/24 14:45 96 Nasal Cannula 2 08/31/24 14:15 97 Nasal Cannula 2 08/31/24 14:00 89 L Room Air 08/31/24 13:45 Nasal Cannula 2 08/31/24 13:45 92 Room Air 08/31/24 13:30 98 Room Air 08/31/24 13:15 98 Room Air 08/31/24 13:00 98 Room Air 08/31/24 12:45 98 Room Air 08/31/24 12:30 98 Room Air 08/31/24 09:53 95 Room Air 08/31/24 08:00 08/31/24 08:00 Nasal Cannula 2 08/31/24 07:32 89/60 L 93 Nasal Cannula 1 08/31/24 06:50 08/31/24 06:44 72/50 L 92 Nasal Cannula 2 08/31/24 03:15 106/72 95 Room Air Lab & Micro Results (Past 24 Hours) RBC 4.76 M/uL (4.70-6.10) 08/31/24 WBC 8.31 K/ul (4.8-10.8) 08/31/24 Hgb 15.2 g/dl (14.0-18.0) 08/31/24 Hct 44.0 % (42.0-52.0) 08/31/24 MCV 92.4 fL (80.0-100.0) 08/31/24 MCH 31.9 pg (25.0-34.0) 08/31/24 MCHC 34.5 g/dL (32.0-36.0) 08/31/24 RDW Standard Deviation 43.8 fL (36.4-46.3) 08/31/24 RDW Coefficient of Variation 12.9 % (11.5-14.5) 08/31/24 Plt Count 218 K/uL (130-400) 08/31/24 MPV 11.0 fL (9.4-12.4) 08/31/24 Na 138 mmol/L (136-145) 08/31/24 K 4.6 mmol/L (3.5-5.1) 08/31/24 Cl 106 mmol/L (98-107) 08/31/24 CO2 26 mmol/L (21-32) 08/31/24 Anion Gap 6 (3-11) 08/31/24 BUN 17 mg/dl (6-23) 08/31/24 Creatinine 1.31 mg/dl (0.6-1.4) 08/31/24 BUN/Creatinine Ratio 13.0 (10-20) 08/31/24 Glu 194 mg/dl (70-99(Fasting)) H 08/31/24 Ca 8.7 mg/dl (8.6-10.3) 08/31/24 Total Bilirubin 0.7 mg/dl (0.2-1.0) 08/31/24 AST 23 U/L (13-39) 08/31/24 ALT 27 U/L (7-52) 08/31/24 Alkaline Phosphatase 59 U/L (34-104) 08/31/24 TP 6.5 gm/dl (6.0-8.3) 08/31/24 Albumin 4.2 gm/dl (3.4-5.0) 08/31/24 Globulin 2.3 gm/dl (2.5-4.0) L 08/31/24 Albumin/Globulin Ratio 1.8 (0.9-2) 08/31/24 Calcium Level 8.7 mg/dl (8.6-10.3) 08/31/24 07:30 Prothromb Time International Ratio 1.0 (0.9-1.1) 08/31/24 07:3 0 I & O Totals 24 Hours 08/30/24 08/31/24 09/01/24 06:59 06:59 06:59 Intake Total 1867.833 / 1867.833 720 / 720 250 / 250 Balance 1867.833 / 1867.833 720 / 720 250 / 250 Cumulative 08/29/24 08:01 thru 08/31/24 13:20 Intake Total 2837.833 Balance 2837.833 RT Ventilator Mngmt (Last Documented) Ventilator Ordered Settings Respiratory Rate 21 08/31/24 14:45 Ventilator - PT Measurements Respiratory Rate 21 Coding Level of Care Code 45269 IN/OBS CONSULT LVL 4,60M Diagnoses Symptomatic bradycardia R00.1 SVT (supraventricular tachycardia) I47.10 Cardiomyopathy I42.9 Asthma J45.909
[2024-08-31] MEDS: FLUTICASONE/VILANTEROL 100/25MCG 14 PUFFS/INHALER INH SCH (16:06)
[2024-08-31] MEDS: ONDANSETRON INJ 2 MG/ML 2 ML VIAL IV PRN (16:06)
--- NOTE | 2024-08-31 18:41 | Cardiology Consultation ---
Date of Consultation August 31, 2024 Assessment & Plan (1) SVT (supraventricular tachycardia): (2) Cardiomyopathy: (3) Elevated troponin: (4) Hypertension: (5) Hyperlipidemia: (6) Dyspnea on exertion: Plan ASSESSMENT/PLAN: 1. 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 While did not respond immediately to adenosine, the morphology on EKG suggest a reentrant tachycardia. We did discuss options for treatment which would include medical therapy or catheter-based therapy. Some concern about continued high doses of metoprolol. He and his seem more in favor of curative therapy and this would involve ablation. I think we can schedule this electively at this point. 2. Cardiomyopathy: Nonischemic. Unclear etiology overall. Reported to have had some element of LV dysfunction as early as 2011. Very well compensated without evidence of elevated filling pressures. Additional diagnostic tests will be performed to reevaluate the etiology. The more concerning issue would be medical therapy given his events noted today. 3. Elevated troponin: Demand ischemia. No acute coronary syndrome. 4. Hypertension: Generally speaking on olmesartan hand. Lower blood pressures today. 5. Hypotension, bradycardia: Curious that this does not happen more frequently at home. Certainly prone to episodes of high vagal tone. This likely accounts for today's symptoms. I think we will wean his dopamine over the course of the evening. Will monitor his hemodynamics tomorrow. For episodes of persistent bradycardia and associated hypotension we may need to consider device therapy. I did mention this to the patient and his today. The appropriate device given his cardiomyopathy would be a defibrillator. History of Present Illness Reason for Consultation: Bradycardia, hypotension, SVT Requesting Physician: Swati Attending Physician: Carmina Oates MD History of Present Illness The patient is a 59-year-old gentleman without a known history of cardiac disease who presents to the hospital with an episode of an elevated heart rate. The patient states that he was at rest when he noticed his heart racing. He did have a sense of some jaw and neck discomfort. However, he denied dizziness, presyncope or breathing difficulty. He did check his heart rate at home and found to be close to 200 bpm. He felt that given the persistent nature of his symptoms and the elevated heart rate he should present to the emergency room. He was discovered to have an SVT. Initial attempts at control with adenosine and metoprolol were unaffected. Eventually he was started on some diltiazem and converted to a sinus rhythm. He was admitted to the hospital for observation. Echocardiography demonstrated severe LV dysfunction and he was scheduled for coronary angiography. However, this morning the patient was straining to have a bowel movement when he developed dizziness and lightheadedness. This was associated with some hemodynamic changes to include bradycardia and hypotension. This seemed to wax and wane in severity throughout the course of the morning. Patient eventually underwent coronary angiography which did not demonstrate any obstructive coronary disease. Prior to angiography had been placed on dopamine for hemodynamic support. Currently in the intensive care unit on a dopamine infusion. Patient states that he did have 1 severe episode of syncope approximately 4 years ago. This did result in a cervical fracture. Occasionally he will have some classic symptoms of high vagal tone to include diaphoresis, being pale and abdominal complaints. Often these are associated with straining. He did not report additional episodes of loss of consciousness. Today's episode also did include some diaphoresis and abdominal discomfort. In general he is a very active individual. He is able to engage in strenuous activities such as chopping wood. He did not endorse symptoms of limiting dyspnea, exertional chest pain or orthostatic type symptoms. Generally not aware of any palpitations or elevated heart rates. No lower extremity edema. Allergies Allergy/AdvReac Type Severity Reaction Status Date / Time aspirin Allergy Severe Shortness Verified 08/31/24 09:55 of Breath codeine Allergy Severe Shortness Verified 08/31/24 09:55 of Breath Penicillins Allergy Severe Shortness Verified 08/31/24 09:55 of Breath Home Medications Medication Instructions Recorded Confirmed Type olmesartan 5 mg tablet 5 mg PO QAM 06/12/24 08/29/24 History rosuvastatin 10 mg tablet 10 mg PO QAM 06/12/24 08/29/24 History salmeterol 50 mcg/dose blister 1 inh inhalation BID #180 ea 06/25/24 08/29/24 Rx powder for inhalation (Serevent Diskus) Patient History Medical History Encounter for pre-operative examination Skin lesion of neck Pre-diabetes HERRERA-inhibitor cough PONV (postoperative nausea and vomiting) Skin lesion of neck Pre-diabetes Hypertension Hyperlipidemia Asthma Surgical History (Updated 07/01/24 @ 15:15 by Joan Ponce) Hx of arthroscopy of left knee Hx of colonoscopy (2017) History of surgery Excision of Left Neck Lesion, 04/02/2024 - Dr. Osborn. Done in clinic under local anesthesia 06/23/24-Removal of left-sided post auricular lesion-Dr. 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 History of back surgery Lumbar History of appendectomy Family History Uncle Coronary heart disease Aunt Coronary heart disease Father Coronary heart disease Diabetes Hypertension Social History Smoking Status: Never smoker Second Hand Exposure: No; Do You Dip or Chew Tobacco: No; Hx Alcohol Use: No Hx Substance Use: No Preferred Language: Setswana Communication Ability: Effective Bolter Helper Required: No Beliefs That Will Affect Care: None marital status: Current Living Situation: Spouse current occupational status: employed current occupation: [employer] How many Children do You have: 3 Feels Safe at Home: Yes Safety Concerns: Feels Safe At This Time Childhood Exposure to Second-Hand Smoke: No Diet: regular caffeine: Yes Dental Care, Regularly: No Physical Activity Frequency: Daily Seatbelt Use: always Sunscreen Use: No Assistive Devices: Glasses Review of Systems Review of Systems: Per HPI. No recent constitutional symptoms such as fevers or chills. Physical Exam Physical Exam: The patient is alert and oriented. Mood and affect appeared normal. He answered all questions appropriately. HEENT: Pupils are equal and reactive to light and accommodation. Extraocular movements are intact. The sclerae are anicteric. Neuro: Cranial nerves intact Lungs: Clear to auscultation bilaterally. He has good air movement without use of accessory muscles. No rales wheezes or rhonchi. Cardiac: Heart demonstrates a regular rate and rhythm with occasional ectopy. Normal S1 and S2. No murmurs on examination. Pulses: The patient has palpable radial pulses bilaterally that are equal in intensity Extremities: There was no evidence of hypoperfusion. There is no cyanosis or clubbing. There is no edema. Skin: I did not appreciate any rashes on examination today. Results & Data Vital Signs (Past 12 Hours) Vital Signs Temp Pulse Pulse Pulse Resp BP BP 08/31/24 18:00 92 H 20 109/57 L 08/31/24 17:49 86 18 104/70 08/31/24 17:00 84 20 109/62 08/31/24 16:33 90 19 125/64 08/31/24 16:15 77 16 100/52 L 08/31/24 16:00 36.6 C 08/31/24 16:00 81 21 110/45 L 08/31/24 15:45 67 14 118/57 L 08/31/24 15:32 78 16 106/55 L 08/31/24 15:15 70 17 111/54 L 08/31/24 15:00 68 16 109/50 L 08/31/24 14:45 75 21 114/55 L 08/31/24 14:15 69 16 93/51 L 08/31/24 14:00 63 16 102/46 L 08/31/24 13:45 08/31/24 13:45 36.7 C 60 15 94/54 L 08/31/24 13:30 64 18 100/54 L 08/31/24 13:15 76 18 98/60 L 08/31/24 13:00 82 18 89/76 L 08/31/24 12:45 74 18 109/63 08/31/24 12:30 73 18 111/49 L 08/31/24 09:53 75 18 112/69 08/31/24 08:00 76 08/31/24 08:00 08/31/24 07:32 82 20 08/31/24 06:50 36.4 C L 08/31/24 06:44 50 L 18 BP Pulse Ox O2 Del Method O2 Flow Rate 08/31/24 18:00 95 Nasal Cannula 2 08/31/24 17:49 94 Nasal Cannula 2 08/31/24 17:00 91 Room Air 08/31/24 16:33 92 Room Air 08/31/24 16:15 94 Nasal Cannula 2 08/31/24 16:00 08/31/24 16:00 93 Nasal Cannula 2 08/31/24 15:45 93 Nasal Cannula 2 08/31/24 15:32 96 Nasal Cannula 2 08/31/24 15:15 96 Nasal Cannula 2 08/31/24 15:00 96 Nasal Cannula 2 08/31/24 14:45 96 Nasal Cannula 2 08/31/24 14:15 97 Nasal Cannula 2 08/31/24 14:00 89 L Room Air 08/31/24 13:45 Nasal Cannula 2 08/31/24 13:45 92 Room Air 08/31/24 13:30 98 Room Air 08/31/24 13:15 98 Room Air 08/31/24 13:00 98 Room Air 08/31/24 12:45 98 Room Air 08/31/24 12:30 98 Room Air 08/31/24 09:53 95 Room Air 08/31/24 08:00 08/31/24 08:00 Nasal Cannula 2 08/31/24 07:32 89/60 L 93 Nasal Cannula 1 08/31/24 06:50 08/31/24 06:44 72/50 L 92 Nasal Cannula 2 PG Care Time/CCT Total # of Minutes Spent Total Time Spent with Patient: Total time spent is greater than 50% in coordination of care (as documented) at patient's floor/unit and/or counseling patient: Coding Level of Care Code 86262 IN/OBS CONSULT LVL 4,60M Diagnoses SVT (supraventricular tachycardia) I47.10 Cardiomyopathy I42.9 Elevated troponin R79.89 Hypertension I10 Hyperlipidemia E78.5 Dyspnea on exertion R06.09
[2024-09-01] MEDS: ICU ELECTROLYTE REPLACEMENT PROTOCOL SCH (03:36)
[2024-09-01 04:57] LABS: Basophils # (auto) 0.04 K/uL (0.00-0.20); Basophils % (auto) 0.4 %; Eosinophils # (auto) 0.12 K/uL (0.00-0.50); Eosinophils % (auto) 1.3 %; Hematocrit (blood only) 42.7 % (42.0-52.0); Hemoglobin 14.6 g/dl (14.0-18.0); Immature Granulocytes # (auto) 0.03 K/uL (0.01-0.20); Immature Granulocytes % (auto) 0.3 %; Lymphocytes # (auto) 1.81 K/uL (1.20-3.40); Lymphocytes % (auto) 19.9 %; Mean Corpuscular Hemoglobin 32.2 pg (25.0-34.0); Mean Corpuscular Hgb Conc 34.2 g/dL (32.0-36.0); Mean Corpuscular Volume 94.1 fL (80.0-100.0); Mean Platelet Volume 10.4 fL (9.4-12.4); Monocytes # (auto) 0.88 K/uL (0.11-0.59); Monocytes % (auto) 9.7 %; Neutrophils % (auto) 68.4 %; Platelet Count 177 K/uL (130-400); Red Blood Count 4.54 M/uL (4.70-6.10); White Blood Count 9.08 K/ul (4.8-10.8)
[2024-09-01 05:10] LABS: BUN Creatinine Ratio 20.8 (10-20); Calcium 8.8 mg/dl (8.6-10.3); Creatinine Clr Calc Pharmacy 77.1 ml/min; Magnesium 1.8 mg/dl (1.7-2.4); Phosphorus 3.1 mg/dl (2.5-4.9); Potassium 4.2 mmol/L (3.5-5.1)
[2024-09-01 05:30] LABS: Ferritin 379.4 ng/ml (8-388)
--- NOTE | 2024-09-01 08:13 | Critical Care Progress Note ---
Date of Service September 01, 2024 Assessment & Plan (1) Symptomatic bradycardia: (2) SVT (supraventricular tachycardia): (3) Cardiomyopathy: (4) Asthma: Plan Impression: 59-year-old male with supraventricular tachycardia and cardiomyopathy of unclear etiology. His dopamine was weaned off yesterday. He was seen by electrophysiology with plans to pursue outpatient ablation for his SVT. His cardiomyopathy is stable and has had no recurrent episodes of bradycardia or hypotension Recommendation: 1. SVT with symptomatic bradycardia: Plans for outpatient evaluation for potential ablation 2. Cardiomyopathy: Off dopamine. Restart Benicar. Holding metoprolol. Additional goal-directed therapy per cardiology. 3. History of asthma: Continue Breo. He can use DuoNebs on an as-needed basis. Outpatient PFTs may be reasonable. 4. Creatinine back to baseline. Continue to follow. Appears euvolemic 5. Glycemic control per ICU protocol. Discussed with patient and bedside critical care nurse as well as on multidisciplinary rounds. The patient's critical care issues are resolved. He can transfer back to the telemetry floor. Final disposition per cardiology and the patient's primary admitting service Admission and Anticipated Discharge Date Admission Date: August 29, 2024 Subjective Patient seen and examined. EMR reviewed. The patient is asymptomatic currently. He denies any chest pain or palpitations. His pressors have been off since yesterday evening. No syncope or presyncope. No sustained arrhythmias. He feels well. He is tolerated a diet. He wants to get up and move around. Review of Systems Review of Systems: All systems reviewed & are unremarkable except as noted in Subjective Physical Exam Constitutional: WD/WN, vitals as above Neck: trachea midline, no thyromegaly Respiratory: normal respiratory effort, lungs clear to auscultation Cardiovascular: RRR, no murmur, no edema Gastrointestinal (Abdomen): normal bowel sounds, soft, nontender, no hepatosplenomegaly Musculoskeletal: Extremities: extremities normal to inspection Skin: no rashes, warm and dry Neurologic: Nonfocal exam Lymphatic: no cervical lymphadenopathy Results & Data Results & Data Vital Signs (Past 12 Hours) Vital Signs Temp Pulse Pulse Resp BP BP Pulse Ox 09/01/24 07:00 36.6 C 83 19 126/83 97 09/01/24 06:33 73 9 L 98 09/01/24 06:24 58 L 19 98 09/01/24 06:15 63 14 98 09/01/24 06:06 65 14 95 09/01/24 06:00 115/76 09/01/24 05:51 90 18 97 09/01/24 05:42 67 0 L 98 09/01/24 05:33 70 3 L 97 09/01/24 05:21 62 19 96 09/01/24 05:03 81 18 96 09/01/24 05:00 09/01/24 05:00 09/01/24 05:00 10509/01/24 04:57 74 18 98 09/01/24 04:51 65 14 95 09/01/24 04:45 62 11 L 95 09/01/24 04:21 65 10 L 97 09/01/24 04:18 65 8 L 96 09/01/24 04:00 120/78 09/01/24 04:00 120/78 09/01/24 04:00 68 14 96 09/01/24 03:51 66 14 97 09/01/24 03:45 62 14 96 09/01/24 03:33 75 12 97 09/01/24 03:00 69 14 98 09/01/24 03:00 128/90 09/01/24 03:00 128/90 09/01/24 02:57 36.7 C 09/01/24 02:51 61 14 97 09/01/24 02:42 79 15 95 09/01/24 02:39 67 13 95 09/01/24 02:12 75 16 96 09/01/24 01:24 68 7 L 96 09/01/24 01:12 70 13 97 09/01/24 01:00 67 17 95 09/01/24 00:51 61 14 97 09/01/24 00:48 64 18 96 09/01/24 00:33 66 13 95 09/01/24 00:21 67 14 95 09/01/24 00:15 66 17 96 09/01/24 00:00 66 15 96 08/31/24 23:30 73 2 L 97 08/31/24 23:21 66 0 L 97 08/31/24 23:15 66 18 98 08/31/24 23:00 97/65 L 08/31/24 23:00 97/65 L 08/31/24 22:54 69 10 L 97 08/31/24 22:33 65 15 96 08/31/24 22:27 70 20 98 08/31/24 22:15 72 13 97 08/31/24 22:00 66 16 97 08/31/24 21:54 73 15 98 08/31/24 21:42 65 14 96 08/31/24 21:39 72 15 96 08/31/24 21:00 81/54 L 08/31/24 21:00 62 16 96 08/31/24 21:00 36.7 C 08/31/24 20:45 70 16 96 08/31/24 20:30 78 14 96 O2 Del Method 09/01/24 07:00 Room Air 09/01/24 06:33 09/01/24 06:24 09/01/24 06:15 09/01/24 06:06 09/01/24 06:00 09/01/24 05:51 09/01/24 05:42 09/01/24 05:33 09/01/24 05:21 09/01/24 05:03 09/01/24 05:00 09/01/24 05:00 09/01/24 05:00 09/01/24 04:57 09/01/24 04:51 09/01/24 04:45 09/01/24 04:21 09/01/24 04:18 09/01/24 04:00 09/01/24 04:00 09/01/24 04:00 09/01/24 03:51 09/01/24 03:45 09/01/24 03:33 09/01/24 03:00 09/01/24 03:00 09/01/24 03:00 09/01/24 02:57 09/01/24 02:51 09/01/24 02:42 09/01/24 02:39 09/01/24 02:12 09/01/24 01:24 09/01/24 01:12 09/01/24 01:00 09/01/24 00:51 09/01/24 00:48 09/01/24 00:33 09/01/24 00:21 09/01/24 00:15 09/01/24 00:00 08/31/24 23:30 08/31/24 23:21 08/31/24 23:15 08/31/24 23:00 08/31/24 23:00 08/31/24 22:54 08/31/24 22:33 08/31/24 22:27 08/31/24 22:15 08/31/24 22:00 08/31/24 21:54 08/31/24 21:42 08/31/24 21:39 08/31/24 21:00 08/31/24 21:00 08/31/24 21:00 08/31/24 20:45 08/31/24 20:30 Critical Care Results & Data Vital Signs (Past 12 Hours) Vital Signs Temp Pulse Pulse Resp BP BP Pulse Ox 09/01/24 07:00 36.6 C 83 19 126/83 97 09/01/24 06:33 73 9 L 98 09/01/24 06:24 58 L 19 98 09/01/24 06:15 63 14 98 09/01/24 06:06 65 14 95 09/01/24 06:00 115/76 09/01/24 05:51 90 18 97 09/01/24 05:42 67 0 L 98 09/01/24 05:33 70 3 L 97 09/01/24 05:21 62 19 96 09/01/24 05:03 81 18 96 09/01/24 05:00 105/87 09/01/24 05:00 105/87 09/01/24 05:00 105/87 09/01/24 04:57 74 18 98 09/01/24 04:51 65 14 95 09/01/24 04:45 62 11 L 95 09/01/24 04:21 65 10 L 97 09/01/24 04:18 65 8 L 96 09/01/24 04:00 120/78 09/01/24 04:00 120/78 09/01/24 04:00 68 14 96 09/01/24 03:51 66 14 97 09/01/24 03:45 62 14 96 09/01/24 03:33 75 12 97 09/01/24 03:00 69 14 98 09/01/24 03:00 128/90 09/01/24 03:00 128/90 09/01/24 02:57 36.7 C 09/01/24 02:51 61 14 97 09/01/24 02:42 79 15 95 09/01/24 02:39 67 13 95 09/01/24 02:12 75 16 96 09/01/24 01:24 68 7 L 96 09/01/24 01:12 70 13 97 09/01/24 01:00 67 17 95 09/01/24 00:51 61 14 97 09/01/24 00:48 64 18 96 09/01/24 00:33 66 13 95 09/01/24 00:21 67 14 95 09/01/24 00:15 66 17 96 09/01/24 00:00 66 15 96 08/31/24 23:30 73 2 L 97 08/31/24 23:21 66 0 L 97 08/31/24 23:15 66 18 98 08/31/24 23:00 97/65 L 08/31/24 23:00 97/65 L 08/31/24 22:54 69 10 L 97 08/31/24 22:33 65 15 96 08/31/24 22:27 70 20 98 08/31/24 22:15 72 13 97 08/31/24 22:00 66 16 97 08/31/24 21:54 73 15 98 08/31/24 21:42 65 14 96 08/31/24 21:39 72 15 96 08/31/24 21:00 81/54 L 08/31/24 21:00 62 16 96 08/31/24 21:00 36.7 C 08/31/24 20:45 70 16 96 08/31/24 20:30 78 14 96 O2 Del Method 09/01/24 07:00 Room Air 09/01/24 06:33 09/01/24 06:24 09/01/24 06:15 09/01/24 06:06 09/01/24 06:00 09/01/24 05:51 09/01/24 05:42 09/01/24 05:33 09/01/24 05:21 09/01/24 05:03 09/01/24 05:00 09/01/24 05:00 09/01/24 05:00 09/01/24 04:57 09/01/24 04:51 09/01/24 04:45 09/01/24 04:21 09/01/24 04:18 09/01/24 04:00 09/01/24 04:00 09/01/24 04:00 09/01/24 03:51 09/01/24 03:45 09/01/24 03:33 09/01/24 03:00 09/01/24 03:00 09/01/24 03:00 09/01/24 02:57 09/01/24 02:51 09/01/24 02:42 09/01/24 02:39 09/01/24 02:12 09/01/24 01:24 09/01/24 01:12 09/01/24 01:00 09/01/24 00:51 09/01/24 00:48 09/01/24 00:33 09/01/24 00:21 09/01/24 00:15 09/01/24 00:00 08/31/24 23:30 08/31/24 23:21 08/31/24 23:15 08/31/24 23:00 08/31/24 23:00 08/31/24 22:54 08/31/24 22:33 08/31/24 22:27 08/31/24 22:15 08/31/24 22:00 08/31/24 21:54 08/31/24 21:42 08/31/24 21:39 08/31/24 21:00 08/31/24 21:00 08/31/24 21:00 08/31/24 20:45 08/31/24 20:30 Lab & Micro Results (Past 24 Hours) RBC 4.54 M/uL (4.70-6.10) L 09/01/24 WBC 9.08 K/ul (4.8-10.8) 09/01/24 Hgb 14.6 g/dl (14.0-18.0) 09/01/24 Hct 42.7 % (42.0-52.0) 09/01/24 MCV 94.1 fL (80.0-100.0) 09/01/24 MCH 32.2 pg (25.0-34.0) 09/01/24 MCHC 34.2 g/dL (32.0-36.0) 09/01/24 RDW Standard Deviation 45.0 fL (36.4-46.3) 09/01/24 RDW Coefficient of Variation 13.0 % (11.5-14.5) 09/01/24 Plt Count 177 K/uL (130-400) 09/01/24 MPV 10.4 fL (9.4-12.4) 09/01/24 Neutrophils (%) (Auto) 68.4 % 09/01/24 Lymphocytes (%) (Auto) 19.9 % 09/01/24 Monocytes # (Auto) 0.88 K/uL (0.11-0.59) H 09/01/24 Eosinophils # (Auto) 0.12 K/uL (0.00-0.50) 09/01/24 Immature Granulocyte % (Auto) 0.3 % 09/01/24 Neutrophils # (Auto) 6.20 K/uL (1.40-6.50) 09/01/24 Lymphocytes # (Auto) 1.81 K/uL (1.20-3.40) 09/01/24 Monocytes # (Auto) 0.88 K/uL (0.11-0.59) H 09/01/24 Eosinophils # (Auto) 0.12 K/uL (0.00-0.50) 09/01/24 Basophils # (Auto) 0.04 K/uL (0.00-0.20) 09/01/24 Immature Granulocyte # (Auto) 0.03 K/uL (0.01-0.20) 5 Na 139 mmol/L (136-145) 09/01/24 K 4.2 mmol/L (3.5-5.1) 09/01/24 Cl 106 mmol/L (98-107) 09/01/24 CO2 28 mmol/L (21-32) 09/01/24 Anion Gap 5 (3-11) 09/01/24 BUN 25 mg/dl (6-23) H 09/01/24 Creatinine 1.20 mg/dl (0.6-1.4) 09/01/24 BUN/Creatinine Ratio 20.8 (10-20) H 09/01/24 Glu 122 mg/dl (70-99(Fasting)) H 09/01/24 Ca 8.8 mg/dl (8.6-10.3) 09/01/24 Phosphorus Level 3.1 mg/dl (2.5-4.9) 09/01/24 Mg 1.8 mg/dl (1.7-2.4) 09/01/24 04:28 Calcium Level 8.8 mg/dl (8.6-10.3) 09/01/24 04:28 I & O Totals 24 Hours 08/31/24 09/01/24 09/02/24 06:59 06:59 06:59 Intake Total 720 / 720 342.264 / 342.264 Output Total 1100 / 1100 Balance 720 / 720 -757.736 / -757.736 Cumulative 08/29/24 08:01 thru 09/01/24 05:17 Intake Total 2930.097 Output Total 1100 Balance 1830.097 RT Ventilator Mngmt (Last Documented) Ventilator Ordered Settings Respiratory Rate 19 09/01/24 07:00 Ventilator - PT Measurements Respiratory Rate 19 Coding Level of Care Code 41772 SUB INP/OBS CARE 2/35MIN Diagnoses Symptomatic bradycardia R00.1 SVT (supraventricular tachycardia) I47.10 Cardiomyopathy I42.9 Asthma J45.909
--- NOTE | 2024-09-01 13:46 | Cardiology Progress Note ---
Date of Service September 01, 2024 Assessment & Plan (1) SVT (supraventricular tachycardia): (2) Cardiomyopathy: (3) Elevated troponin: (4) Hypertension: (5) Hyperlipidemia: (6) Dyspnea on exertion: (7) Symptomatic bradycardia: (8) CAD (coronary artery disease): Plan ASSESSMENT/PLAN: 1. SVT: this is likely a reentrant phenomenon. No recurrence or in the past 12 hours. While ideally he would be on some beta-blockade, when I suggested this this morning he was very wary given the events of yesterday. He feels this may have been precipitated by metoprolol. I think we will try to arrange catheter based therapy in short order. I am currently working on scheduling this for September 03. 2. Cardiomyopathy: Nonischemic. Had mildly reduced LV systolic function in the past but now severely reduced. He seems to be tolerating his dose of olmesartan. We will add an SG LT 2 inhibitor today. What other medical therapy he will tolerate as yet unclear. Blood pressure tends to run on the lower side. 3. Symptomatic bradycardia: I think his bradycardia is related to high vagal tone. While he does have fairly frequent episodes and severe episodes at times, I am not confident this can be attenuated with any specific medical or device therapy. If he continues to do well we will look to reintroduce beta-veronica therapy. 4. CAD: Nonobstructive (ostial D1). Allergic to aspirin. Continue statin therapy. LDL well-controlled. No angina. 5. Elevated troponin: Likely due to demand ischemia from prolonged SVT with heart rates near 200 bpm. Otherwise, no angina. Cardiac catheterization as above. Aspirin therapy was not given due to allergy as a child (he states that his mother told him that his throat started to close). 6. Hypertension: On olmesartan as an outpatient. Lower blood pressures seen here in the hospital. 7. Dyslipidemia: Continue statin therapy. Consider high intensity statin therapy although LDL seems to be well-controlled, for nonobstructive CAD. 8. Dyspnea on exertion: He appears euvolemic. May be related to his cardiomyopathy. Nonobstructive CAD. NYHA class II. I think if he is ambulatory, hemodynamically stable and feeling well on medical therapy we could consider discharge today or tomorrow. We will like to perform his ablation on . They are certainly the option of keeping him in the hospital until lack of be done although I think it is safe for him to go home and come back as an outpatient. Attempting to arrange it as an outpatient currently. Admission and Anticipated Discharge Date Admission Date: August 29, 2024 Subjective This morning the patient was feeling well. He states that after vomiting yesterday and getting something to eat he actually felt much better. He has been ambulatory around the al twice already this morning without symptoms. No dizziness or lightheadedness. No additional gastrointestinal complaints. Review of Systems Review of Systems: Per HPI Physical Exam Physical Exam: The patient is alert and oriented. Mood and affect appeared normal. He answered all questions appropriately. HEENT: Pupils are equal and reactive to light and accommodation. Extraocular movements are intact. The sclerae are anicteric. Neuro: Cranial nerves intact Lungs: Clear to auscultation bilaterally. He has good air movement without use of accessory muscles. No rales wheezes or rhonchi. Cardiac: Heart demonstrates a regular rate and rhythm with occasional ectopy. Normal S1 and S2. No murmurs on examination. Pulses: The patient has palpable radial pulses bilaterally that are equal in intensity Extremities: There was no evidence of hypoperfusion. There is no cyanosis or clubbing. There is no edema. Skin: I did not appreciate any rashes on examination today. Results & Data Vital Signs (Past 12 Hours) Vital Signs Temp Pulse Pulse Pulse Resp BP BP 09/01/24 11:28 36.7 C 71 22 105/65 09/01/24 07:00 36.6 C 83 19 126/83 09/01/24 06:33 73 9 L 09/01/24 06:24 58 L 19 09/01/24 06:15 63 14 09/01/24 06:06 65 14 09/01/24 06:00 115/76 09/01/24 05:51 90 18 09/01/24 05:42 67 0 L 09/01/24 05:33 70 3 L 09/01/24 05:21 62 19 09/01/24 05:03 81 18 09/01/24 05:00 105/87 09/01/24 05:00 105/87 09/01/24 05:00 105/87 09/01/24 04:57 74 18 09/01/24 04:51 65 14 09/01/24 04:45 62 11 L 09/01/24 04:21 65 10 L 09/01/24 04:18 65 8 L 09/01/24 04:00 120/78 09/01/24 04:00 120/78 09/01/24 04:00 68 14 09/01/24 03:51 66 14 09/01/24 03:45 62 14 09/01/24 03:33 75 12 09/01/24 03:00 69 14 09/01/24 03:00 128/90 09/01/24 03:00 128/90 09/01/24 02:57 36.7 C 09/01/24 02:51 61 14 09/01/24 02:42 79 15 09/01/24 02:39 67 13 09/01/24 02:12 75 16 Pulse Ox O2 Del Method 09/01/24 11:28 96 Room Air 09/01/24 07:00 97 Room Air 09/01/24 06:33 98 09/01/24 06:24 98 09/01/24 06:15 98 09/01/24 06:06 95 09/01/24 06:00 09/01/24 05:51 97 09/01/24 05:42 98 09/01/24 05:33 97 09/01/24 05:21 96 09/01/24 05:03 96 09/01/24 05:00 09/01/24 05:00 09/01/24 05:00 09/01/24 04:57 98 09/01/24 04:51 95 09/01/24 04:45 95 09/01/24 04:21 97 09/01/24 04:18 96 09/01/24 04:00 09/01/24 04:00 09/01/24 04:00 96 09/01/24 03:51 97 09/01/24 03:45 96 09/01/24 03:33 97 09/01/24 03:00 98 09/01/24 03:00 09/01/24 03:00 09/01/24 02:57 09/01/24 02:51 97 09/01/24 02:42 95 09/01/24 02:39 95 09/01/24 02:12 96 Laboratory Results Abnormal Lab Results 08/31/24 09/01/24 16:19 04:28 WBC 9.08 RBC 4.54 L Hgb 14.6 Hct 42.7 MCV 94.1 MCH 32.2 MCHC 34.2 RDW Std Deviation 45.0 RDW Coeff of Afshan 13.0 Plt Count 177 MPV 10.4 Immature Gran % (Auto) 0.3 Neut % (Auto) 68.4 Lymph % (Auto) 19.9 [place] % (Auto) 9.7 Eos % (Auto) 1.3 Baso % (Auto) 0.4 Neut # (Auto) 6.20 Lymph # (Auto) 1.81 [place] # (Auto) 0.88 H Eos # (Auto) 0.12 Baso # (Auto) 0.04 Immature Gran # (Auto) 0.03 Sodium 139 Potassium 4.2 Chloride 106 Carbon Dioxide 28 Anion Gap 5 BUN 25 H Creatinine 1.20 Est Cr Clr Drug Dosing 77.1 eGFR 69.66 BUN/Creatinine Ratio 20.8 H Glucose 122 H POC Glucose 166 H Calcium 8.8 Phosphorus 3.1 Magnesium 1.8 Transferrin 206 Ferritin 379.4 PG Care Time/CCT Total # of Minutes Spent Total Time Spent with Patient: Total time spent is greater than 50% in coordination of care (as documented) at patient's floor/unit and/or counseling patient: Coding Level of Care Code 52175 SUB INP/OBS CARE 2/35MIN Diagnoses SVT (supraventricular tachycardia) I47.10 Cardiomyopathy I42.9 Elevated troponin R79.89 Hypertension I10 Hyperlipidemia E78.5 Dyspnea on exertion R06.09 Symptomatic bradycardia R00.1 CAD (coronary artery disease) I25.10
--- NOTE | 2024-09-01 14:35 | XCELERA ---
[id number]
[2024-09-01] MEDS: EMPAGLIFLOZIN 10 MG TAB PO SCH (15:22)
--- NOTE | 2024-09-01 19:07 | Hospitalist Progress Note ---
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 technician on 08/31/24 re-entry type SVT per Dr Bird was initially on diltiazem early in the stay, then stopped metoprolol succinate started but now on hold due to severe bradycardia yesterday Dr Bird planning SVT ablation procedure this , 09/03 hold AV severiano agents for now (2) Sinus bradycardia: Plan: developed severe symptomatic sinus bradycardia with hypotension AM 08/31 this prompted code purple by report was straining to have a bowel movement about the time of this event required atropine, IVF at that time metoprolol succ placed on hold EKG with severe sinus bradycardia by report had interspersed junctional rhythm as well went to prosthetics lab technician following the above and apparently had recurrent sinus magalis requiring atropine once again followed by dopamine for persistent bradycardia/hypotension while in the prosthetics lab technician had another episode of SVT which self-terminated per cardiology sinus bradycardia is due to high vagal tone dopamine is off as of last pm (3) Elevated troponin: Plan: HS trop peaked at 1999 hospital day #1 likely myocardial demand ischemia in the setting of SVT no evidence of ACS (4) Diabetes mellitus: Plan: a1c 6.5% 06/2024 cont dietary control efforts (5) Cardiomyopathy: Plan: non-ischemic etiology uncertain EF on echo 25-30% early in admission Today's limited echo - 30-35% compensated on exam ideally he should be on beta veronica as tolerated Dr Bird starting Jardiance cont olmesartan (6) CAD (coronary artery disease): Plan: s/p cath by Dr Longoria 08/31 showed ostial D1 disease only - nonobstructive other major epicardial vessels clean allergic to aspirin thus defer cont statin (7) Asthma: Plan: no exacerbation at this time cont controller agent (8) Hyperlipidemia: Plan: cont statin (9) Hypertension: Plan: cont olmesartan (10) PAU (acute kidney injury): Plan: Cr yesterday 1.3 likely 2nd to hypotension improving - now 1.2 baseline 0.9 to 1 repeat BMP am Plan care d/w cardiology/passenger rate clerk today either can d/c home tomorrow OR stay hospitalized thru for his ablation procedure will defer to patient & his comfort level Admission and Anticipated Discharge Date Admission Date: August 29, 2024 Subjective tele overnight - no SVT or other dysrhythmia frequent PVCs dopamine weaned off last pm no bradycardia since then denies any dizziness or lightheaded denies any dyspnea on exertion walking the hallways without difficulty/limitation overall feels well Review of Systems Review of Systems: gen - no fevers cv - no chest pain, no orthopnea GI - no N/V/pain pulm - no dyspnea at rest Physical Exam Physical Exam: gen - looks well, NAD neck - no JVD heart - irregular (extra beats); regular rate; s1 s2, no murmur lungs - CTA b/l abd - soft NT ND BS+ ext - no edema, pulses 2+ b/l Results & Data Results & Data Vital Signs (Past 12 Hours) Vital Signs Temp Pulse Pulse Resp BP Pulse Ox O2 Del Method 09/01/24 15:28 36.4 C L 72 19 107/67 94 Room Air 09/01/24 11:28 36.7 C 71 22 105/65 96 Room Air Laboratory Results Laboratory Results - last 24 hr 09/01/24 09/01/24 09/01/24 04:28 15:26 Unknown WBC 9.08 RBC 4.54 L Hgb 14.6 Hct 42.7 MCV 94.1 MCH 32.2 MCHC 34.2 RDW Std Deviation 45.0 RDW Coeff of Afshan 13.0 Plt Count 177 MPV 10.4 Immature Gran % (Auto) 0.3 Neut % (Auto) 68.4 Lymph % (Auto) 19.9 [place] % (Auto) 9.7 Eos % (Auto) 1.3 Baso % (Auto) 0.4 Neut # (Auto) 6.20 Lymph # (Auto) 1.81 [place] # (Auto) 0.88 H Eos # (Auto) 0.12 Baso # (Auto) 0.04 Immature Gran # (Auto) 0.03 Sodium 139 Potassium 4.2 Chloride 106 Carbon Dioxide 28 Anion Gap 5 BUN 25 H Creatinine 1.20 Est Cr Clr Drug Dosing 77.1 eGFR 69.66 BUN/Creatinine Ratio 20.8 H Glucose 122 H POC Glucose 126 H Calcium 8.8 Phosphorus 3.1 Magnesium 1.8 Transferrin 206 Ferritin 379.4 Total Protein (PEP) Pending Albumin (PEP) Pending Yvvyf-2-Eyvravzcc Pending Skyms-2-Xtkbpbnvh Pending Iuen-8-Lnhzxqsb Pending Mkrl-1-Tbmtnhpn Pending Gamma Globulins Pending Monoclonal Peak 3 Pending Ser Monoclonl Protein Pending Ser Monoclonal Prot 2 Pending PEP Interpretation Pending Angiotensin Convert Enz Pending U Random Total Protein Pending Ur Creatinine mg/dL Pending Protein/Creatinin Ratio Pending Urine Albumin (%) Pending U Kghqs-4-Itxpgkvh (%) Pending U Sroll-8-Qezlbpsb (%) Pending U Beta Globulin (%) Pending U Gamma Globulin (%) Pending U Abnormal Prot Band 1 Pending U Abnormal Prot Band 2 Pending U Abnormal Prot Band 3 Pending Urine PEP Interpret Pending PG Care Time/CCT Total # of Minutes Spent Total Time Spent with Patient: Total time spent is greater than 50% in coordination of care (as documented) at patient's floor/unit and/or counseling patient: Coding Level of Care Code 23445 SUB INP/OBS CARE 2/35MIN Diagnoses SVT (supraventricular tachycardia) I47.10 Sinus bradycardia R00.1 Elevated troponin R79.89 Type 2 diabetes mellitus without complication, without long-term current use of insulin E11.9 Diabetes mellitus complication status: without complication Diabetes mellitus half-way insulin use: without half-way use Diabetes mellitus type: type 2 Cardiomyopathy I42.9 CAD (coronary artery disease) I25.10 Asthma J45.909 Hyperlipidemia E78.5 Hypertension I10 PAU (acute kidney injury) N17.9 (4) Diabetes mellitus Diabetes mellitus complication status: without complication Diabetes mellitus terminal gauger supervisor insulin use: without terminal gauger supervisor use Diabetes mellitus type: type 2 Qualified Code(s): E11.9 - Type 2 diabetes mellitus without complications
--- NOTE | 2024-09-01 19:08 | Electrocardiogram Report ---
Test Reason : Blood Pressure : */* mmHG Vent. Rate : 42 BPM Atrial Rate : 42 BPM P-R Int : 162 ms QRS Dur : 100 ms QT Int : 524 ms P-R-T Axes : 34 1 71 degrees QTcB Int : 437 ms Poor data quality, interpretation may be adversely affected Marked sinus bradycardia Possible Inferior infarct , age undetermined Abnormal ECG When compared with ECG of 31-Aug-2024 06:42, Premature ventricular complexes are no longer Present Confirmed by Neeraj Longoria ([id number]) on 09/01/2024 7:08:12 PM Referred By: REFERRED SELF Confirmed By: Neeraj Longoria
[2024-09-02 04:57] LABS: BUN Creatinine Ratio 19.5 (10-20); Calcium 9.1 mg/dl (8.6-10.3); Creatinine Clr Calc Pharmacy 81.8 ml/min; Potassium 4.2 mmol/L (3.5-5.1)
[2024-09-02] MEDS: POLYETHYLENE (MIRALAX) 17 GM PACK PO PRN (07:15)
[2024-09-02 07:20] VITALS: RESP 16; TEMP 97.9; O2SAT 95
[2024-09-02 07:21] VITALS: BP 127/79
[2024-09-02 07:38] VITALS: PULSE 70
--- NOTE | 2024-09-02 08:24 | Cardiology Progress Note ---
Date of Service September 02, 2024 Assessment & Plan (1) SVT (supraventricular tachycardia): (2) Cardiomyopathy: (3) Elevated troponin: (4) Hypertension: (5) Hyperlipidemia: (6) Dyspnea on exertion: (7) Symptomatic bradycardia: (8) CAD (coronary artery disease): Plan ASSESSMENT/PLAN: 1. SVT: No recurrence. We have discussed catheter based therapy. This is arranged for tomorrow. 2. Cardiomyopathy: Nonischemic. Had mildly reduced LV systolic function in the past but now severely reduced. Perhaps a small improvement on yesterday's echocardiogram. Tolerating Jardiance and ARB. My intention is to reintroduce beta blockade when he is comfortable taking the medication. This will likely be after his ablation. 3. Symptomatic bradycardia: This appears to be related to high vagal tone. Some episodes over the course of several years. We will monitor him for recurrent symptoms. Unfortunately, no ideal treatment for this problem other than recognizing the prodrome and taking appropriate precautions. 4. CAD: Nonobstructive (ostial D1). Allergic to aspirin. Continue statin therapy. LDL well-controlled. No angina. 5. Elevated troponin: Likely due to demand ischemia from prolonged SVT with heart rates near 200 bpm. No epicardial stenosis on catheterization. 6. Hypertension: Normotensive on current therapy. 7. Dyslipidemia: Continue statin therapy. I think the patient can be safely discharged today with outpatient ablation tomorrow. If he has any concerns about going home or if there are other reasons for him to be in the hospital we can certainly perform this as an inpatient tomorrow as well. If he elects to go home no eating after midnight. He should present to the main entrance shortly after 7:00 a.m. tomorrow. He will need a ride home. I relayed all this information to the patient this morning. Admission and Anticipated Discharge Date Admission Date: August 29, 2024 Subjective This morning the patient claimed he feeling well. He reported ambulating freely around the al. He also use the commode on 2 occasions. No symptoms associated with this type of activity. No recurrent dizziness or bradycardia. No chest pain or breathing difficulty. Review of Systems Review of Systems: Per HPI Physical Exam Physical Exam: The patient is alert and oriented. Mood and affect appeared normal. He answered all questions appropriately. HEENT: Pupils are equal and reactive to light and accommodation. Extraocular movements are intact. The sclerae are anicteric. Neuro: Cranial nerves intact Lungs: Normal respiratory effort Extremities: There was no evidence of hypoperfusion. There is no cyanosis or clubbing. There is no edema. Skin: I did not appreciate any rashes on examination today. Results & Data Vital Signs (Past 12 Hours) Vital Signs Temp Pulse Pulse Resp BP BP Pulse Ox 09/02/24 07:18 36.6 C 85 16 127/79 95 09/02/24 07:00 70 09/02/24 05:48 75 0 L 09/02/24 05:36 72 9 L 09/02/24 05:21 60 4 L 09/02/24 05:06 69 4 L 09/02/24 04:51 72 6 L 09/02/24 04:39 66 10 L 09/02/24 04:21 71 12 09/02/24 04:12 86 14 09/02/24 04:00 66 9 L 09/02/24 03:51 64 18 09/02/24 03:48 75 15 09/02/24 03:30 79 23 09/02/24 03:12 75 15 09/02/24 03:00 69 10 L 09/02/24 02:57 68 11 L 09/02/24 02:30 80 22 09/02/24 02:21 72 15 09/02/24 02:12 81 21 09/02/24 02:00 67 14 09/02/24 01:42 87 17 09/02/24 01:39 36.7 C 09/02/24 01:30 69 15 09/02/24 01:23 103/67 09/02/24 01:23 103/67 09/02/24 01:23 103/67 09/02/24 01:21 76 13 09/02/24 01:12 77 15 09/02/24 01:03 74 13 09/02/24 00:54 66 2 L 09/02/24 00:33 67 0 L 09/02/24 00:21 70 3 L 09/02/24 00:00 68 14 09/01/24 23:57 65 14 09/01/24 23:39 63 16 09/01/24 23:21 64 10 L 09/01/24 23:15 70 14 09/01/24 23:00 71 15 09/01/24 22:42 71 10 L 09/01/24 22:30 72 13 09/01/24 22:24 67 15 09/01/24 22:00 82 19 09/01/24 21:54 73 16 09/01/24 21:45 69 14 09/01/24 21:39 73 15 09/01/24 21:21 82 17 09/01/24 21:15 72 18 09/01/24 21:00 79 15 09/01/24 21:00 114/80 09/01/24 21:00 114/80 09/01/24 20:56 122/77 09/01/24 20:51 71 17 09/01/24 20:48 66 12 09/01/24 20:36 67 15 O2 Del Method 09/02/24 07:18 Room Air 09/02/24 07:00 09/02/24 05:48 09/02/24 05:36 09/02/24 05:21 09/02/24 05:06 09/02/24 04:51 09/02/24 04:39 09/02/24 04:21 09/02/24 04:12 09/02/24 04:00 09/02/24 03:51 09/02/24 03:48 09/02/24 03:30 09/02/24 03:12 09/02/24 03:00 09/02/24 02:57 09/02/24 02:30 09/02/24 02:21 09/02/24 02:12 09/02/24 02:00 09/02/24 01:42 09/02/24 01:39 09/02/24 01:30 09/02/24 01:23 09/02/24 01:23 09/02/24 01:23 09/02/24 01:21 09/02/24 01:12 09/02/24 01:03 09/02/24 00:54 09/02/24 00:33 09/02/24 00:21 09/02/24 00:00 09/01/24 23:57 09/01/24 23:39 09/01/24 23:21 09/01/24 23:15 09/01/24 23:00 09/01/24 22:42 09/01/24 22:30 09/01/24 22:24 09/01/24 22:00 09/01/24 21:54 09/01/24 21:45 09/01/24 21:39 09/01/24 21:21 09/01/24 21:15 09/01/24 21:00 09/01/24 21:00 09/01/24 21:00 09/01/24 20:56 09/01/24 20:51 09/01/24 20:48 09/01/24 20:36 PG Care Time/CCT Total # of Minutes Spent Total Time Spent with Patient: Total time spent is greater than 50% in coordination of care (as documented) at patient's floor/unit and/or counseling patient: Coding Level of Care Code 77632 SUB INP/OBS CARE 2/35MIN Diagnoses SVT (supraventricular tachycardia) I47.10 Cardiomyopathy I42.9 Elevated troponin R79.89 Hypertension I10 Hyperlipidemia E78.5 Dyspnea on exertion R06.09 Symptomatic bradycardia R00.1 CAD (coronary artery disease) I25.10
--- NOTE | 2024-09-02 10:31 | Discharge Summary ---
Discharge Summary Date of Service date of admission - August 29, 2024 date of discharge - September 02, 2024 Principal Dx & Hospital Course #1 = Principal Diagnosis (1) SVT (supraventricular tachycardia): present on admission while in the [facility] he received Adenosine x 3, Diltiazem bolus x 1, followed by Diltiazem drip for the SVT SVT finally terminated and he reverted back to NSR following the above diltiazem drip stopped once back in NSR he was started on low-dose metoprolol on 08/29/24 he had no further SVT until the time of his cardiac catheterization on 08/31/24 the SVT seen while in the 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 machinist spontaneously resolved without intervention seen by Dr Radu Bird, [facility] Cardiology/EP etiology of SVT felt to be re-entry as patient developed severe bradycardia the AM of 08/31/24 (see below) his metoprolol was discontinued given that the patient is symptomatic from his SVT, and in light of the severe bradycardia event and the patient's concern/anxiety of going back on beta veronica therapy, Dr Bird recommended SVT ablation for definitive treatment of the SVT Dr Bird will perform SVT ablation on , 09/03/24, as outpatient at [facility] he is on no AV severiano agents at time of discharge (2) Sinus bradycardia: developed severe symptomatic sinus bradycardia with hypotension on the AM of 08/31/24 this prompted code purple by report was straining to have a bowel movement about the time of this event required atropine for his severe sinus bradycardia metoprolol succinate was placed on hold due to this event EKG on 08/31/24 showed severe sinus bradycardia by report had interspersed junctional rhythm as well around this time no pauses or AV block were witnessed, however went to the laboratory machinist for left heart catheterization by Dr Chadd Longoria following the above event and had recurrent sinus bradycardia requiring atropine once again he was ultimately placed on dopamine infusion for his recurrent/persistent bradycardia/hypotension following left heart catheterization he was admitted to the ICU dopamine infusion was weaned off by the evening of 2/10/25 he had NO further bradycardia for the remainder of the hospitalization -- per cardiology sinus bradycardia was due to high vagal tone with potential exacerbation by the presence of beta veronica medication cardiology did not recommend permanent pacemaker for the above at time of discharge he is not on beta veronica therapy however, given his severe cardiomyopathy, the hope is that low-dose beta veronica can be resumed at some point in the future (3) Cardiomyopathy: EF on initial echo - 25-30%, with global hypokinesis repeat limited echo later in the visit - EF 30-35% s/p left heart catheterization - no significant CAD found thus, cardiomyopathy is non-ischemic cause of his cardiomyopathy is uncertain SPEP/UPEP were dispatched; HERRERA level was sent/pending iron studies were not suggestive of hemochromatosis he has no prior history of heavy alcohol use he has no prior history of taking cardiac toxic medicines, chemotherapy, etc. he potentially will need cardiac MRI as outpatient to rule out infiltrative diseases (ie sarcoid, etc) he was continued on low-dose olmesartan once-daily Jardiance was initiated while here he did not require any diuretic therapy as he was compensated the entire stay ideally he should be on beta veronica but, due to #2 above, beta veronica is on hold for now hopefully we can resume a beta veronica as outpatient in the near-future he would also benefit from addition of Entresto but this will be deferred to the outpatient setting he was given CHF instructions at discharge daily weights encouraged fluid/salt restriction discussed he should f/u with [facility] Cardiology CHF clinic for ongoing management (4) Elevated troponin: HS trop peaked at 1999 hospital day #1 likely myocardial demand ischemia in the setting of SVT no evidence of ACS (especially in light of his near-normal cardiac catheterization) (5) Diabetes mellitus: Hba1c 6.5% 06/2024 continue dietary control efforts (6) CAD (coronary artery disease): s/p left heart catheterization by Dr Chadd Longoria 08/31/24 showed ostial D1 disease only - nonobstructive other major epicardial vessels clean allergic to aspirin thus defer continue Crestor 10mg daily (7) Asthma: no exacerbation at any point while hospitalized diagnosed early in life with asthma he had been only taking Serevent monotherapy for his asthma pre-hospitalization Serevent was discontinued and he was changed to Breo inhaler 1 puff daily for maintenance (8) Hyperlipidemia: continue Crestor controlled --> LDL was 60 on lipid profile 06/2024 (9) Hypertension: continue olmesartan daily (10) PAU (acute kidney injury): Peak Creatinine 1.3 likely 2nd to hypotension in the setting of his severe bradycardia episode Creatinine was 1.1 at discharge baseline creatinine ~0.9 to 1 Notes For Next Care Provider referral to [facility] CHF clinic outpatient SVT ablation scheduled for the AM of 09/03/[address] Radu Bird Medication Changes From Visit 1. STOP Serevent 2. START Breo 1 puff daily 3. START Jardiance 10mg daily 4. OTC miralax once daily to prevent straining at stool Admission HPI Per Admitting Provider This is a 57 year old gentleman with past medical history of hypertension, hyperlipidemia, asthma, and recently diagnosed type 2 diabetes who presented to the ED on 08/29/2024 with a chief complaint of tachycardia. Patient reports he woke up this morning, took his regular medications and inhaler then laid back down. He then woke up around 7 am this morning and felt his heart racing. He denied chest pain but did admit to neck stiffness. He reports he has no history of neck stiffness. He reports that he had a similar episode about a week ago in which he felt his heart was racing but then this symptoms subsided in a very short amount of time. He denies any SOB. Denies lower extermity edema. Denies nausea/vomiting, abdominal pain. denies any urinary symptoms. While in the ED, he was found to be in SVT per his EKG. He was given adenosine and Cardizem. He was started on a Cardizem drip but this was then stopped as his rate was well controlled in the 80s. An echocardiogram is pending. He had a troponin of 32 which then increased to 520.5. His TSH was WNL. Cardiology was consulted and recommendations are pending. Code discussion with patient took place and he is a full code. Discharge Exam gen - looks well, NAD neck - no JVD mouth - MMM heart - irregular (extra beats); regular rate; s1 s2, no murmur lungs - CTA b/l abd - soft NT ND BS+ ext - no edema, foot pulses 2+ b/l vascular - right radial artery - no hematoma, no aneurysm psych - a/o x 3 Discharge Plan Discharge Items Patient Disposition: Home - Self-Care Reason For Visit: TACHYCARDIA Discharge Diagnosis: 1. SVT (supraventricular tachycardia) - ablation procedure planned 09/03/24 2. cardiomyopathy - cause uncertain; ejection fraction 30-35% 3. bradycardia (slow heart rate) - resolved 4. acute kidney injury - resolving 5. minimal amount of non-obstructive coronary artery disease 6. asthma 7. type 2 diabetes - hemoglobin a1c 6.5% - diet control for now Activity: Per Instructions section Sexual Activity: Wait until after follow-up appointment Exercise/Sports: Wait until after follow-up appointment Driving/Machine Use: NO DRIVING at this time Non-emergency contact: Primary Care Provider and Academic Affairs Assistant Call non-emergency contact if: you have any medication questions and your symptoms worsen Follow-up/Referrals: Radu Bird MD [Physician] - (report to [facility] Main Entrance at 7am to check in for ablation procedure scheduled for 8am) Noe Gallegos DO [Primary Care Provider] - 09/07/24 1:30 pm (Hospital follow up scheduled September 07 at 1:30) Diet: Carb Consistent or DM2 and Heart Healthy Fluids: 2000ml (8 cups) Addtl Attending Provider Instructions: Mr Payton, You were hospitalized after having an episode of supraventricular tachycardia ("SVT"). See handout on SVT. This is a rapid heart rhythm that originates from the top portion of your heart. As part of the work-up for SVT you had an echocardiogram. This showed that the heart muscle is weaker than normal. Your ejection fraction - the amount of blood that your heart pumps each time it beats - is typically about 60-65% in most individuals, with normal being down to ~50%. Your ejection fraction is 30-35%. The exact cause of your congestive heart failure / cardiomyopathy is uncertain. A common cause of congestive heart failure is coronary artery disease. You underwent heart catheterization to rule this condition out. You had a minimal amount of plaque build-up in 1 artery only; all the other vessels were normal. Thus, coronary artery disease is NOT the cause of your heart failure. During the stay you had an episode of bradycardia which is when the heart rate goes too slow. This was thought to have been brought on by straining to have a bowel movement. We call this "increased vagal tone" or "vasovagal." The beta veronica medicine you previously took may have worsened things to a degree as well. You have not had any slow heart rates in over [address] Adolfo Bird from [facility]iology is planning to perform an ablation procedure for your SVT. He will perform this on am, 09/03/24. Recommendations - 1. nothing by mouth starting at MIDNIGHT TONIGHT; if you have to take a medicine by mouth after midnight only do so with a small sip of water. No food or beverages otherwise. 2. arrive at [facility] main entrance tomorrow AM, 09/03/24, at 7am. 3. take Jardiance for your heart once daily; start this tomorrow, 09/03/24. 4. discontinue your Serevent inhaler. 5. start Breo inhaler 1 puff once daily. Be sure to rinse your mouth with water after each use. After rinsing spit the water out (do not swallow). 6. check your weight EVERY morning on the same scale. Keep a notebook of your weights. See instructions below. 7. try to limit total salt intake to no more than 2000mg in a 24-hour period. 8. keep fluid intake to about 1800-2000ml each day. With your high level of activity at your job & at home this amount should keep you hydrated but should not cause any problems for your congestive heart failure. 9. check your blood pressure and heart rate daily. 10. take [id number] miralax once daily for a week or two to keep bowel movements soft. Return to [facility] if - * you have worsening shortness of breath * you have severe dizziness or lightheadedness * you have any concerns about your right wrist where your heart cath was * you have any concerns you are back in SVT (your heart rate is consistently greater than 100) * any other concerns It was our pleasure to care for you! Addtl Curriculum Director Provider Instructions: ACTIVITY RECOMMENDATIONS following your heart catheterization: It is common to feel weak and fatigue for a few days. * Do not drive or operate any motorized equipment for the next three days. * Limit stair usage (2 or 3 trips a day only) for the next three days. * Do not lift anything heavier than 10 pounds for the next three days. * Do not engage in vigorous exercise or any sports unless cleared by cardiology. * You may shower at this time. HOWEVER - do not immerse the right wrist for three days. Cleanse the site gently with soap and water. SPECIAL CARE INSTRUCTIONS: * You may replace the pressure dressing or band-aid the morning after the procedure. * After your procedure, it is normal to have a small bruise or small lump at the site. Examine your site daily for any change in the bruise or lump, redness, swelling, drainage or numbness. Notify your doctor if any change. BLEEDING: * If there is a small amount of bleeding at the site, lie down and apply firm pressure with a clean cloth for ten minutes. When the bleeding stops, lie quietly keeping the procedure limb straight for six hours. Notify your doctor as soon as possible. * If the bleeding does not stop after ten minutes or if there is a large amount of bleeding or spurting, call 911 immediately. Continue to lie down and hold firm pressure until help arrives. SKIN IRRITATION: * You may experience some redness and/or swelling in the area where radiation was administered. If any skin irritation occurs, please contact your family physician. Congestive Heart Failure Instructions - Call 911 and go to the Emergency Room if: * You have tightness or pain in your chest that does not go away with rest or Nitroglycerin * You are very short of breath even with rest Call your doctor if any of the following symptoms or problems start or get worse: * Shortness of breath or difficulty breathing * Wake up at night short of breath * Chest pain * Cough * Swelling of your hands, fee, or legs * More fatigued or tired with your normal activity * Palpitations - sudden fast heart beats WEIGHT * Weigh yourself every morning after using the bathroom. * Use the same scale. * Wear the same amount of clothing. * Write your weight down on your chart. * Call your doctor if you gain more than 2-3 pounds in 1-2 days. This is often one of the first signs of water retention from congestive heart failure.* MEDICATIONS * Use this discharge instruction sheet for instructions. * Take your medications at the time your doctor ordered. * Do not skip a dose of your medicines. * If you miss a dose of medicine, take as soon as possible, but DO NOT DOUBLE A DOSE. * Read your medicine information when you get home. * Know all of the side effects of your medicine. * Call your doctor's office if you have any side effects. * Be sure all of your doctors know what medicine and herbs you take (including cold, flu, and herbal medicine). * Pain Medicine: If you do not get relief from your pain, please call your doctor for help. Take the following with you to your follow-up doctor appointments: * Weight Chart * Medication List * List of questions Do not drink excessive alcohol, beer or wine. Pending Studies at Discharge: Yes Studies:: labs for cardiomyopathy etiology Stand-Alone Forms: My [facility] [employer], Smoking Cessation Medications and DC Order Prescriptions: New fluticasone furoate-vilanterol [Breo Ellipta] 100-25 mcg/dose Blister With Device 1 inh inhalation DAILY Qty: 60 2RF Rx Instructions: rinse mouth with water after each use polyethylene glycol 3350 [Miralax] 17 gram Powder In Packet 17 g PO DAILY Qty: 1 0RF Rx Instructions: purchase [id number] Jardiance 10 mg Tablet 10 mg PO DAILY Qty: 30 5RF Continued olmesartan 5 mg tablet 5 mg PO QAM rosuvastatin 10 mg tablet 10 mg PO QAM Discontinued Serevent Diskus 50 mcg/dose blister with device 1 inh INH BID Qty: 180 3RF Discharge Orders: Discharge Order (Routine); Ordered 09/02/24 Ordered By: Jed Castle/Other Patient Handouts: What Is Heart Failure, Medicines for Cardiomyopathy, Cardiomyopathy Dc, SVT Admission Data Admit Date/Time: 08/29/24 11:49 Attending Provider: Jed Kumar Admit Provider: Jed Enrique Primary Care Provider: Noe Gallegos Other Providers: Neeraj Longoria; Yasmine Gutierrez; Radu Bird; Mushtaq Messina Other Interventions: Discharge Summary Assessment (RN) Last Done: 09/02/24 10:23 Hospital Stay Data Consultations [facility] Cardiology [facility] CHF Program Referral [facility] Cardiac Electrophysiology Critical care/composing 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 Left main: No significant CAD. 2. Left anterior descending: Large caliber vessel that wraps around the apex. No significant CAD within the LAD. Large D1 with ostial 40%. Large D2 without significant CAD. 3. Circumflex: No significant CAD within the circumflex, OM1, OM 2 branches. 4. Right coronary artery: RCA is large and dominant. No significant CAD within the RCA, PDA, PL. Echocardiogram - 09/01/24: Echocardiogram - 08/29/24: Diagnostic Imagining Performed Chest X-Ray 08/29/24 08:10 XR chest 1V portable HISTORY: 59 years-old Male svt acute chest pain or shortness of breath COMPARISON: 06/27/2012 TECHNIQUE: AP view of the chest FINDINGS: Mild bilateral reticular nodular densities, right greater than left. No pneumothorax, pleural effusion or pulmonary edema. Mild linear bibasilar densities. Bones appear grossly intact. IMPRESSION: 1. Bibasilar reticular nodular densities, likely infectious or inflammatory. 2. Mild bibasilar atelectasis. ACT 112: Negative or not required by law. The above report was generated using voice recognition software. It may contain grammatical, syntax or spelling errors. Electronically signed by: Junior Valencia M.D. 08/29/2024 9:37 AM Pending Results Patient Have Any Pending Studies at Discharge: Yes Discharge Instructions Given to Patient (Per Discharging Provider) Mr Payton, Krystian were hospitalized after having an episode of supraventricular tachycardia ("SVT"). See handout on SVT. This is a rapid heart rhythm that originates from the top portion of your heart. As part of the work-up for SVT you had an echocardiogram. This showed that the heart muscle is weaker than normal. Your ejection fraction - the amount of blood that your heart pumps each time it beats - is typically about 60-65% in most individuals, with normal being down to ~50%. Your ejection fraction is 30-35%. The exact cause of your congestive heart failure / cardiomyopathy is uncertain. A common cause of congestive heart failure is coronary artery disease. You underwent heart catheterization to rule this condition out. You had a minimal amount of plaque build-up in 1 artery only; all the other vessels were normal. Thus, coronary artery disease is NOT the cause of your heart failure. During the stay you had an episode of bradycardia which is when the heart rate goes too slow. This was thought to have been brought on by straining to have a bowel movement. We call this "increased vagal tone" or "vasovagal." The beta veronica medicine you previously took may have worsened things to a degree as well. You have not had any slow heart rates in over [address] Adolfo Bird from [facility] is planning to perform an ablation procedure for your SVT. He will perform this on am, 09/03/24. Recommendations - 1. nothing by mouth starting at MIDNIGHT TONIGHT; if you have to take a medicine by mouth after midnight only do so with a small sip of water. No food or beverages otherwise. 2. arrive at [facility] main entrance tomorrow AM, 09/03/24, at 7am. 3. take Jardiance for your heart once daily; start this tomorrow, 09/03/24. 4. discontinue your Serevent inhaler. 5. start Breo inhaler 1 puff once daily. Be sure to rinse your mouth with water after each use. After rinsing spit the water out (do not swallow). 6. check your weight EVERY morning on the same scale. Keep a notebook of your weights. See instructions below. 7. try to limit total salt intake to no more than 2000mg in a 24-hour period. 8. keep fluid intake to about 1800-2000ml each day. With your high level of activity at your job & at home this amount should keep you hydrated but should not cause any problems for your congestive heart failure. 9. check your blood pressure and heart rate daily. 10. take lidp-xwk-ljxfpfo miralax once daily for a week or two to keep bowel movements soft. Return to [facility] if - * you have worsening shortness of breath * you have severe dizziness or lightheadedness * you have any concerns about your right wrist where your heart cath was * you have any concerns you are back in SVT (your heart rate is consistently greater than 100) * any other concerns It was our pleasure to care for you! Total Time Total Time Spent Total Time Spent (In Minutes): 45 Coding Level of Care Code 44652 INP/OBS DISCH >30 MIN Diagnoses SVT (supraventricular tachycardia) I47.10 Sinus bradycardia R00.1 Cardiomyopathy I42.9 Elevated troponin R79.89 Type 2 diabetes mellitus without complication, without long-term current use of insulin E11.9 Diabetes mellitus complication status: without complication Diabetes mellitus terminal worker insulin use: without terminal worker use Diabetes mellitus type: type 2 CAD (coronary artery disease) I25.10 Asthma J45.909 Hyperlipidemia E78.5 Hypertension I10 PAU (acute kidney injury) N17.9
[2024-09-02 17:17] LABS: Creatinine Ur 136 mg/dL (20-320); Protein, Urine Random 13 mg/dL (5-25); Ur Albumin % 62 %; Ur Alpha-1-globulin % 6 %; Ur Alpha-2-globulin % 12 %; Ur Beta Globulin % 10 %; Ur Gamma Globulin % 11 %; Ur Protein/Creat Ratio mg/g 96 mg/g creat (25-148); Urine Abnormal Protein Band 1 DNR mg/dL (NONE DETECTED); Urine Abnormal Protein Band 2 DNR mg/dL (NONE DETECTED); Urine Protein/Creatinine Ratio 0.096 (0.025-0.148)
[2024-09-03 15:12] LABS: Albumin 3.9 g/dL (3.8-4.8); Alpha 1 Globulin 0.3 g/dL (0.2-0.3); Alpha 2 Globulin 0.5 g/dL (0.5-0.9); Angiotensin Converting Enzyme 25 U/L (9-67); Beta-1-Globulin 0.3 g/dL (0.4-0.6); Beta-2-Globulin 0.3 g/dL (0.2-0.5); Gamma Globulin 0.8 g/dL (0.8-1.7); Monoclonal Protein Band 1 DNR g/dL (NONE DETECTED); Monoclonal Protein Band 2 DNR g/dL (NONE DETECTED); Monoclonal Protein Band 3 DNR g/dL (NONE DETECTED); Total Protein 6.2 g/dL (6.1-8.1)
== END 2024-09-02 11:04 | disposition home or self-care (01) | DRG 287 ==
LOC: ED 08:01 → 2S 11:49 → SUATTDRO 11:49 → 2S 14:50 → 1E 08-31 13:26

== ENCOUNTER 2024-11-13 04:37 | Inpatient (IN) ==
[2024-11-13 04:42] VITALS: TEMP 98.4
--- NOTE | 2024-11-13 04:56 | Emergency Department Note ---
History of Present Illness General Chief complaint: Arrhythmia/Palpitations Stated complaint: HEART RACING Time Seen by Provider: 11/13/24 04:42 History of Present Illness This 59-year-old male that follows with cardiology for history of SVT and heart failure presents to the ER complaining of racing heart. He tried vagal maneuvers at home and did not help and came in. He woke up at 330 with the racing heart feeling. Patient denies chest pain, dyspnea, fever, chills, recent illness, tobacco use, alcohol use or drug use. Patient states he just woke up with his heart racing and could not break it at home and came in. He has an appointment next month with Phyllis for repeat ablation. He just saw the heart failure clinic. Home Medications Medication Instructions Recorded Confirmed Type rosuvastatin 10 mg tablet 10 mg PO QAM 06/12/24 11/13/24 History albuterol sulfate 90 mcg/actuation See Rx Instructions inhalation 09/07/24 11/13/24 Rx aerosol inhaler (Ventolin HFA) .COMPLEX PRN shortness of breath or wheezing #8.5 grams fluticasone furoate 100 1 inh inhalation DAILY #60 ea 09/09/24 11/13/24 Rx mcg-vilanterol 25 mcg/dose inhalation powder (Breo Ellipta) empagliflozin 10 mg tablet 10 mg PO DAILY #90 tabs 10/02/24 11/13/24 Rx (Jardiance) sacubitril 49 mg-valsartan 51 mg 1 tab PO BID 30 days #60 tabs 11/13/24 Rx tablet (Entresto) Allergies Allergy/AdvReac Type Severity Reaction Status Date / Time aspirin Allergy Severe Shortness Verified 11/13/24 06:28 of Breath codeine Allergy Severe Shortness Verified 11/13/24 06:28 of Breath Penicillins Allergy Severe Shortness Verified 11/13/24 06:28 of Breath Past Med/Surg History Problem List (Updated 11/13/24 @ 10:45 by Gene Ferguson PA-C) Heart failure Abnormal EKG (Acute) SVT (supraventricular tachycardia) (Acute) PAU (acute kidney injury) CAD (coronary artery disease) Symptomatic bradycardia Sinus bradycardia Dyspnea on exertion Cardiomyopathy Abnormal ECG (Acute) Elevated troponin (Acute) Elevated troponin SVT (supraventricular tachycardia) (Acute) Basal cell carcinoma Diabetes mellitus S/P excision of skin lesion, follow-up exam Asthma (Acute) Hyperlipidemia (Acute) Lumbar disc disease (Acute) Medical History Hypertension Encounter for pre-operative examination Skin lesion of neck Pre-diabetes HERRERA-inhibitor cough PONV (postoperative nausea and vomiting) Skin lesion of neck Pre-diabetes Hypertension Hyperlipidemia Asthma Surgical History Hx of arthroscopy of left knee Hx of colonoscopy (2017) History of surgery Excision of Left Neck Lesion, 04/02/2024 - Dr. Osborn. Done in clinic under local anesthesia 06/23/24-Removal of left-sided post auricular lesion-Dr. 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 History of back surgery Lumbar History of appendectomy Family History Uncle Coronary heart disease Aunt Coronary heart disease Father Coronary heart disease Diabetes Hypertension Social History Smoking Status: Never smoker Second Hand Exposure: No; Do You Dip or Chew Tobacco: No; Hx Alcohol Use: No Hx Substance Use: No Preferred Language: Occitan Communication Ability: Effective Business Services Clerk Required: No Beliefs That Will Affect Care: None marital status: Current Living Situation: Spouse current occupational status: employed current occupation: [employer] How many Children do You have: 3 Feels Safe at Home: Yes Childhood Exposure to Second-Hand Smoke: No Diet: regular caffeine: Yes Dental Care, Regularly: No Physical Activity Frequency: Daily Seatbelt Use: always Sunscreen Use: No Assistive Devices: None Review of Systems A total of 10 systems reviewed and were otherwise negative Physical Exam Vital Signs Vital Signs - 24 hr 11/13/24 04:39 11/13/24 04:44 11/13/24 04:45 Temperature 36.9 C Temperature Source Oral Pulse Rate 196 H 195 H 192 H Pulse Rate [Left Apical] Pulse Rate from SpO2 Sensor Respiratory Rate 18 9 L Respiratory Effort / Characteristics Non-Labored Spontaneous Respiratory Depth Normal Respiratory Pattern Regular Blood Pressure 104/69 Blood Pressure [Left Arm] Blood Pressure Mean 80 Blood Pressure Mean [Left Arm] Pulse Oximetry 97 Oxygen Delivery Method Room Air Sepsis Recent Fever Within 48 Hours No Sepsis New/Unexplained Change in Mental Status No Sepsis Action Taken by Nursing No Action Required 11/13/24 04:47 11/13/24 04:48 11/13/24 04:50 Temperature Temperature Source Pulse Rate 109 H 102 H Pulse Rate [Left Apical] Pulse Rate from SpO2 Sensor Respiratory Rate 17 Respiratory Effort / Characteristics Respiratory Depth Respiratory Pattern Blood Pressure 127/73 Blood Pressure [Left Arm] Blood Pressure Mean 84 Blood Pressure Mean [Left Arm] Pulse Oximetry Oxygen Delivery Method Sepsis Recent Fever Within 48 Hours Sepsis New/Unexplained Change in Mental Status Sepsis Action Taken by Nursing 11/13/24 04:50 11/13/24 04:50 11/13/24 04:55 Temperature Temperature Source Pulse Rate Pulse Rate [Left Apical] Pulse Rate from SpO2 Sensor Respiratory Rate Respiratory Effort / Characteristics Non-Labored Spontaneous Respiratory Depth Normal Respiratory Pattern Regular Blood Pressure 127/73 127/73 Blood Pressure [Left Arm] Blood Pressure Mean 84 84 Blood Pressure Mean [Left Arm] Pulse Oximetry Oxygen Delivery Method Room Air Sepsis Recent Fever Within 48 Hours Sepsis New/Unexplained Change in Mental Status Sepsis Action Taken by Nursing 11/13/24 04:55 11/13/24 04:55 11/13/24 04:57 Temperature 36.9 C Temperature Source Oral Pulse Rate 100 H Pulse Rate [Left Apical] 84 Pulse Rate from SpO2 Sensor 82 Respiratory Rate 18 24 Respiratory Effort / Characteristics Non-Labored Spontaneous Respiratory Depth Normal Respiratory Pattern Regular Blood Pressure Blood Pressure [Left Arm] 127/73 Blood Pressure Mean Blood Pressure Mean [Left Arm] 91 Pulse Oximetry 97 97 98 Oxygen Delivery Method Room Air Room Air Sepsis Recent Fever Within 48 Hours Sepsis New/Unexplained Change in Mental Status Sepsis Action Taken by Nursing 11/13/24 05:05 11/13/24 05:06 11/13/24 05:08 Temperature Temperature Source Pulse Rate 59 L 40 L Pulse Rate [Left Apical] Pulse Rate from SpO2 Sensor Respiratory Rate Respiratory Effort / Characteristics Respiratory Depth Respiratory Pattern Blood Pressure 95/53 L Blood Pressure [Left Arm] Blood Pressure Mean 69 Blood Pressure Mean [Left Arm] Pulse Oximetry Oxygen Delivery Method Sepsis Recent Fever Within 48 Hours Sepsis New/Unexplained Change in Mental Status Sepsis Action Taken by Nursing 11/13/24 05:11 11/13/24 05:14 11/13/24 05:30 Temperature Temperature Source Pulse Rate 70 67 Pulse Rate [Left Apical] Pulse Rate from SpO2 Sensor Respiratory Rate Respiratory Effort / Characteristics Respiratory Depth Respiratory Pattern Blood Pressure 95/63 L 104/59 L Blood Pressure [Left Arm] Blood Pressure Mean 69 76 Blood Pressure Mean [Left Arm] Pulse Oximetry Oxygen Delivery Method Sepsis Recent Fever Within 48 Hours Sepsis New/Unexplained Change in Mental Status Sepsis Action Taken by Nursing 11/13/24 05:30 11/13/24 05:30 11/13/24 05:30 Temperature Temperature Source Pulse Rate Pulse Rate [Left Apical] Pulse Rate from SpO2 Sensor Respiratory Rate Respiratory Effort / Characteristics Respiratory Depth Respiratory Pattern Blood Pressure 104/59 L 104/59 L 104/59 L Blood Pressure [Left Arm] Blood Pressure Mean 76 76 76 Blood Pressure Mean [Left Arm] Pulse Oximetry Oxygen Delivery Method Sepsis Recent Fever Within 48 Hours Sepsis New/Unexplained Change in Mental Status Sepsis Action Taken by Nursing 11/13/24 05:33 11/13/24 05:42 Temperature Temperature Source Pulse Rate 69 68 Pulse Rate [Left Apical] Pulse Rate from SpO2 Sensor 63 67 Respiratory Rate 13 13 Respiratory Effort / Characteristics Respiratory Depth Respiratory Pattern Blood Pressure Blood Pressure [Left Arm] Blood Pressure Mean Blood Pressure Mean [Left Arm] Pulse Oximetry 96 94 Oxygen Delivery Method Sepsis Recent Fever Within 48 Hours Sepsis New/Unexplained Change in Mental Status Sepsis Action Taken by Nursing VITALS: Vitals are noted on the nurse's note and reviewed by myself. Vital signs heart rate in the 190s GENERAL: Pleasant gentleman, in no acute distress, nondiaphoretic, well- developed well-nourished. SKIN: Capillary reflex less than 2 seconds. HEENT: Normocephalic. PERRLA. EOMI. Nares patent. Mucous membranes moist. Neck is supple without nuchal rigidity. HEART: Tachycardic rate and rhythm LUNGS: Clear to auscultation bilaterally without wheezes, rales or rhonchi. No retractions or accessory muscle use. ABDOMEN: Positive bowel sounds x 4. Normal tympanic percussion. Soft, nontender, without masses or organomegaly. Topete sign negative. No guarding or rebound tenderness. no CVA tenderness MUSCULOSKELETAL: No gross musculoskeletal defects. NEURO: Patient was alert and oriented to person place and time. No focal neurological deficits. Course Administered Medications Discontinued Medications Adenosine (Adenosine Iv Soln 3 Mg/Ml 2 Ml Vial) Confirm Administered Dose 18 mg IV .STK-MED ONE Stop: 11/13/24 04:44 Last Admin: 11/13/24 06:07 Dose: Not Given Documented By: YARA Adenosine (Adenosine Iv Soln 3 Mg/Ml 2 Ml Vial) 6 mg IV NOW STA Stop: 11/13/24 04:46 Last Admin: 11/13/24 06:07 Dose: Not Given Documented By: YARA Adenosine (Adenosine Iv Soln 3 Mg/Ml 2 Ml Vial) 12 mg IV NOW STA Stop: 11/13/24 04:46 Last Admin: 11/13/24 06:07 Dose: Not Given Documented By: YARA Empagliflozin (Empagliflozin 10 Mg Tab) 10 mg PO DAILY JUSTIN Stop: 12/13/24 08:59 Last Admin: 11/13/24 08:21 Dose: 10 mg Documented By: SAMMY Fluticasone/Vilanterol (Fluticasone/Vilanterol 100/25mcg 14 Puffs/Inhaler) 1 puffs INH DAILY JUSTIN Stop: 12/13/24 08:59 Last Admin: 11/13/24 08:23 Dose: 1 puffs Documented By: SAMMY Rosuvastatin Calcium (Rosuvastatin Calcium 10 Mg Tab) 10 mg PO QAM [facility] Stop: 12/13/24 08:59 Last Admin: 11/13/24 08:20 Dose: 10 mg Documented By: SAMMY Sacubitril/Valsartan (Valsartan/Sacubitril 51/49 Mg Tab) 1 tab PO BID JUSTIN Stop: 12/13/24 09:29 Last Admin: 11/13/24 09:49 Dose: 1 tab Documented By: SAMMY Critical Care Time Critical Care Time: Yes Total Critical Care Time: 40 I have personally spent 40 minutes of critical care time in the direct management of this patient. This includes bedside care, interpretation of diagnostic studies, and testing, discussion with consultants, patient, and family members, and other required patient management activities. This 40 minutes is in excess of all separately billable procedures. Medical Decision Making Medical Records Attestation: I reviewed the patient's medical records. Home Medications Current Medication List: was personally reviewed by me Laboratory Data Attestation: I reviewed the patient's lab results. 11/13/24 04:47 11/13/24 04:47 Lab Results 11/13/24 11/13/24 Range/Units 04:47 04:51 WBC 8.45 (4.8-10.8) K/ul RBC 5.35 (4.70-6.10) M/uL Hgb 17.2 (14.0-18.0) g/dl POC Hgb 17.0 (14.0-18.0) g/dl Hct 48.8 (42.0-52.0) % POC Hct 50 (42-52) % MCV 91.2 (80.0-100.0) fL MCH 32.1 (25.0-34.0) pg MCHC 35.2 (32.0-36.0) g/dL RDW Std Deviation 44.1 (36.4-46.3) fL RDW Coeff of Afshan 13.2 (11.5-14.5) % Plt Count 229 (130-400) K/uL MPV 9.7 (9.4-12.4) fL Immature Gran % (Auto) 0.2 % Neut % (Auto) 56.0 % Lymph % (Auto) 32.7 % [place] % (Auto) 8.3 % Eos % (Auto) 2.1 % Baso % (Auto) 0.7 % Neut # (Auto) 4.73 (1.40-6.50) K/uL Lymph # (Auto) 2.76 (1.20-3.40) K/uL [place] # (Auto) 0.70 H (0.11-0.59) K/uL Eos # (Auto) 0.18 (0.00-0.50) K/uL Baso # (Auto) 0.06 (0.00-0.20) K/uL Immature Gran # (Auto) 0.02 (0.01-0.20) K/uL POC Sodium 141 (135-144) mmol/L Sodium 139 (136-145) mmol/L POC Potassium 3.7 (3.3-5.0) mmol/L Potassium 3.8 (3.5-5.1) mmol/L POC Chloride 101 (101-112) mmol/L Chloride 103 (98-107) mmol/L Carbon Dioxide 29 (21-32) mmol/L POC Total CO2 24 (24-31) mmol/L Anion Gap 7 (3-11) POC Anion Gap 21.0 (16-25) mmol/L POC BUN 18 (7-18) mg/dl BUN 19 (6-23) mg/dl Creatinine 1.33 (0.6-1.4) mg/dl POC Creatinine 1.3 (0.6-1.3) mg/dl Est Cr Clr Drug Dosing 69.5 ml/min eGFR 61.57 BUN/Creatinine Ratio 14.3 (10-20) Glucose 177 H (70-99(Fasting)) mg/dl POC Glucose (other) 173 H (70-99) mg/dl Calcium 9.5 (8.6-10.3) mg/dl POC Ioniz Calcium Jorge 1.16 (1.12-1.32) mmol/l Magnesium 2.1 (1.7-2.4) mg/dl Total Bilirubin 0.6 (0.2-1.0) mg/dl AST 30 (13-39) U/L ALT 38 (7-52) U/L Alkaline Phosphatase 77 (34-104) U/L Troponin I High Sens 21.0 H (0-20) pg/ml B-Natriuretic Peptide 233 H (0-100) pg/ml Total Protein 7.7 (6.0-8.3) gm/dl Albumin 4.7 (3.4-5.0) gm/dl Globulin 3.0 (2.5-4.0) gm/dl Albumin/Globulin Ratio 1.6 (0.9-2) TSH 3.453 (0.300-4.500) uIu/ml Imaging Data Attestation: I personally reviewed and interpreted this imaging study as follows: MDM Narrative Prior records/ancillary studies reviewed. Triage Nursing notes reviewed. Additional history obtained from family. The patient's history was concerning for palpitations. Differential diagnosis: Etiologies such as premature contractions, electrolyte abnormality, cardiac dysrhythmia, thyroid dysfunction, pulmonary embolism, infection, gastrointestinal, as well as others were entertained. Physical examination: Benign as above. ER treatment provided: Vagal maneuvers of long through the syringe ice and legs were elevated and patient did break from the SVT from the 190s and went into sinus rhythm in the high 90s to the low 110's Cardiac monitoring and AED pads were placed On reassessment the patient felt better. Diagnostic interpretation by me: An order was placed for continuous cardiac monitoring. The monitor shows a rate of 60-200 with a sinus and SVT rhythm per my interpretation. The electrocardiogram was ordered for palpitaions Patient denied any chest pain while in the ER. #1 ECG: Normal sinus, ST depression in the inferior and lateral leads, ST elevation in aVR, rate of 114. Impression sinus tachycardia with dynamic ST depressions in the inferior and lateral leads independently interpreted by myself. Repeat EKG #2 is also unchanged. Patient has no chest pain. EKG #3 was ordered for slower heart rate EKG: Normal sinus, PVC, minimal ST depression in the lateral leads, rate of 64. Impression normal sinus rhythm improved ST depression in the inferior lateral leads with PVC independently interpreted by myself The labs Independently Interpreted by myself revealed stable H&H, hyperglycemia without DKA, normal magnesium Troponin 21 Euthyroid Imaging studies: Chest x-ray with no acute consolidation, pneumothorax or free air per my independent interpretation Consultation: A consultation was placed with the hospitalist. The case was discussed and diagnostics were reviewed. The patient was evaluated in the ER for further treatment. This appears to be consistent with SVT with an abnormal EKG. Patient did break with vagal maneuvers. His EKG is grossly abnormal from baseline. He had no chest pain. He was reassessed multiple times. When I walked back to the room, the patient did look like he was going to pass out, his heart rate did bradycardia down to the 40s. He was placed in Trendelenburg and ice pack to the forehead. After a few minutes the heart rate did improve and the blood pressure did stabilize. Repeat EKG was done and improved. Medicine was consulted and case discussed. He will be evaluated for admission. By the evaluation outlined above emergent etiologies such as electrolyte abnormality, thyroid dysfunction, pulmonary embolism, infection, as well as others were deemed relatively unlikely. The pt informed about the findings as listed above. All questions were answered and pleased with the treatment. The chart was completed utilizing [employer] voice recognition software. Grammatical errors, random word insertions, pronoun errors, and incomplete sentences are an occassional consequence of this system due to software limitations, ambient noise, and hardware issues. Any formal questions or concerns about the content, text, or information contained within the body of this dictation should be directly addressed to the physician music library assistant for clarification. Impression & Plan SVT (supraventricular tachycardia), Abnormal EKG Discharge Plan Visit Data Chief Complaint: Arrhythmia/Palpitations Stated Complaint: HEART RACING ED Provider: Indu Collier ED Midlevel Provider: Myah Fonseca Discharge Problem: SVT (supraventricular tachycardia), Abnormal EKG Patient Disposition: Admitted As Inpatient Condition: Good Discharge Instructions Interventions: ED Discharge Assessment Last Done: 11/13/24 06:12
[2024-11-13 05:03] LABS: iSTAT Creatinine 1.3 mg/dl (0.6-1.3); iSTAT Ionized Calcium 1.16 mmol/l (1.12-1.32); iSTAT Potassium 3.7 mmol/L (3.3-5.0)
[2024-11-13 05:09] LABS: Basophils # (auto) 0.06 K/uL (0.00-0.20); Basophils % (auto) 0.7 %; Eosinophils # (auto) 0.18 K/uL (0.00-0.50); Eosinophils % (auto) 2.1 %; Hematocrit (blood only) 48.8 % (42.0-52.0); Hemoglobin 17.2 g/dl (14.0-18.0); Immature Granulocytes # (auto) 0.02 K/uL (0.01-0.20); Immature Granulocytes % (auto) 0.2 %; Lymphocytes # (auto) 2.76 K/uL (1.20-3.40); Lymphocytes % (auto) 32.7 %; Mean Corpuscular Hemoglobin 32.1 pg (25.0-34.0); Mean Corpuscular Hgb Conc 35.2 g/dL (32.0-36.0); Mean Corpuscular Volume 91.2 fL (80.0-100.0); Mean Platelet Volume 9.7 fL (9.4-12.4); Monocytes % (auto) 8.3 %; Neutrophils # (auto) 4.73 K/uL (1.40-6.50); Platelet Count 229 K/uL (130-400); RDW Coefficient of Variation 13.2 % (11.5-14.5); RDW Standard Deviation 44.1 fL (36.4-46.3); Red Blood Count 5.35 M/uL (4.70-6.10); White Blood Count 8.45 K/ul (4.8-10.8)
[2024-11-13 05:26] LABS: Albumin Globulin Ratio 1.6 (0.9-2); Albumin Level 4.7 gm/dl (3.4-5.0); BUN Creatinine Ratio 14.3 (10-20); Bilirubin,Total 0.6 mg/dl (0.2-1.0); Calcium 9.5 mg/dl (8.6-10.3); Creatinine Clr Calc Pharmacy 69.5 ml/min; Magnesium 2.1 mg/dl (1.7-2.4); Potassium 3.8 mmol/L (3.5-5.1); Total Protein 7.7 gm/dl (6.0-8.3)
[2024-11-13 05:42] LABS: Thyroid Stimulating Hormone 3.453 uIu/ml (0.300-4.500)
--- NOTE | 2024-11-13 05:43 | History & Physical Report ---
Date of Service November 13, 2024 Assessment & Plan (1) SVT (supraventricular tachycardia): (2) Symptomatic bradycardia: (3) Abnormal EKG: (4) Elevated troponin: (5) Heart failure: (6) Asthma: (7) Hyperlipidemia: Plan 59-year-old male with history of nonischemic cardiomyopathy, last EF = 27% per cardiac MRI, history of SVT status post ablation presenting with episode of palpitations which woke him from sleep. Patient found to be in SVT with heart rates in the 190s which responded to vagal maneuvers performed in the emergency room. Patient then developed symptomatic bradycardia with heart rate into the 40s and feeling of near syncope. Presently in sinus rhythm at 67 bpm, feeling improved overall. #SVTpatient with known history. He is scheduled to see Dr. Eckert at [facility] next month for a repeat ablation. Admit to PCU Maintain optimal electrolytes. Presently potassium = 3.8, magnesium = 2.1 Cardiology consultation appreciated #Symptomatic bradycardiapatient with history of similar in the past Maintain pacer pads Cardiology consult appreciated Would avoid atropine if possible due to risk of inducing reentry tachycardia #Abnormal EKGpatient with ST depressions present, QRS = 100 ms Telemetry monitoring Trend troponin Cardiology consult #Nonischemic cardiomyopathypatient with markedly reduced EF of 27% per recent c ardiac MRI, dilated LV and RA and LA. He is on medical management with empagliflozin as well as Entresto. He has been unable to tolerate beta-blockers in the past due to bradycardia. Entresto recently increased yesterday at heart failure clinic. Presently appears compensated with no edema, weight gain, shortness of breath. Plan is to optimize medical management and repeat echo to assess potential improvement in EF. 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 Last echo on 09/01/2024 Continue Jardiance Will hold Entresto for now due to borderline low blood pressures #Asthmawell-controlled, no cough, shortness of breath or wheeze Continue Breo Ellipta Albuterol as needed History of Present Illness Chief Complaint: palpitations Primary Care Provider: Noe Gallegos DO Josh Payton is a 59-year-old male with history of HFrEF, nonischemic cardiomyopathy (last echo performed 09/01/2024 with severely dilated left ventricle with moderately to severely reduced systolic ejection fraction 30 to 35%, global hypokinesis, mildly dilated RV with normal function, severe biatrial dilation), SVT status post ablation presenting with palpitations. Patient was in his usual state of health. Was awoken this morning around 10 18 with palpitations and racing heart. He reports this felt similar to his prior episodes of SVT. He tried all of his vagal maneuvers at home but was unable to break the rhythm. Upon arrival to the ER heart rate at 196 bpm. Vagal maneuvers performed which broke patient into a sinus rhythm. Patient subsequently had 2-3 episodes of near syncope associated with sinus bradycardia (rate as low as 40 bpm). No additional complaints. Denies chest pain, cough, shortness of breath, edema, weight gain. Denies recent illness, nausea, vomiting, diarrhea. Patient had similar presentation in August with SVT and symptomatic bradycardia. He was managed in the ICU for short-term with dopamine. Cardiac catheterization performed on August 31, 2024 which showed nonobstructive coronary artery disease and nonischemic cardiomyopathy Cardiac MRI was consistent with fibrosis Patient seen by heart failure clinic yesterday November 12. Entresto was increased from 24/26 mg p.o. twice daily to 49/51 mg p.o. twice daily He is scheduled to see Dr. Eckert at [facility] for ablation next month ER course: vagal maneuvers Placement of external pacer pads Allergies Allergy/AdvReac Type Severity Reaction Status Date / Time aspirin Allergy Severe Shortness Verified 11/12/24 09:33 of Breath codeine Allergy Severe Shortness Verified 11/12/24 09:33 of Breath Penicillins Allergy Severe Shortness Verified 11/12/24 09:33 of Breath Home Medications Medication Instructions Recorded Confirmed Type rosuvastatin 10 mg tablet 10 mg PO QAM 06/12/24 11/12/24 History albuterol sulfate 90 mcg/actuation See Rx Instructions inhalation 09/07/24 11/12/24 Rx aerosol inhaler (Ventolin HFA) .COMPLEX PRN shortness of breath or wheezing #8.5 grams fluticasone furoate 100 1 inh inhalation DAILY #60 ea 09/09/24 11/12/24 Rx mcg-vilanterol 25 mcg/dose inhalation powder (Breo Ellipta) empagliflozin 10 mg tablet 10 mg PO DAILY #90 tabs 10/02/24 11/12/24 Rx (Jardiance) sacubitril 24 mg-valsartan 26 mg 1 tab PO BID #180 tabs 10/02/24 11/12/24 Rx tablet (Entresto) Past Med/Surg History Problem List (Updated 11/13/24 @ 06:04 by Colleen Henry DO) Heart failure Abnormal EKG (Acute) SVT (supraventricular tachycardia) (Acute) PAU (acute kidney injury) CAD (coronary artery disease) Symptomatic bradycardia Sinus bradycardia Dyspnea on exertion Cardiomyopathy Abnormal ECG (Acute) Elevated troponin (Acute) Elevated troponin SVT (supraventricular tachycardia) (Acute) Basal cell carcinoma Diabetes mellitus S/P excision of skin lesion, follow-up exam Asthma (Acute) Hyperlipidemia (Acute) Lumbar disc disease (Acute) Medical History Hypertension Encounter for pre-operative examination Skin lesion of neck Pre-diabetes HERRERA-inhibitor cough PONV (postoperative nausea and vomiting) Skin lesion of neck Pre-diabetes Hypertension Hyperlipidemia Asthma Surgical History Hx of arthroscopy of left knee Hx of colonoscopy (2017) History of surgery Excision of Left Neck Lesion, 04/02/2024 - Dr. Osborn. Done in clinic under local anesthesia 06/23/24-Removal of left-sided post auricular lesion-Dr. 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 History of back surgery Lumbar History of appendectomy Family History Uncle Coronary heart disease Aunt Coronary heart disease Father Coronary heart disease Diabetes Hypertension Social History Smoking Status: Never smoker Second Hand Exposure: No; Do You Dip or Chew Tobacco: No; Hx Alcohol Use: No Hx Substance Use: No Preferred Language: Maori Communication Ability: Effective Director Compliance Required: No Beliefs That Will Affect Care: None marital status: Current Living Situation: Spouse current occupational status: employed current occupation: [employer] How many Children do You have: 3 Feels Safe at Home: Yes Childhood Exposure to Second-Hand Smoke: No Diet: regular caffeine: Yes Dental Care, Regularly: No Physical Activity Frequency: Daily Seatbelt Use: always Sunscreen Use: No Assistive Devices: None Review of Systems Review of Systems: All systems reviewed & are unremarkable except as noted in HPI & below Physical Exam Physical Exam: General: patient resting comfortably, NAD, non-toxic in appearance, AA&O x 4 Skin: warm, dry, intact, no rashes or lesions HEENT: NC/AT, PERRL, EOMI, anicteric sclera, conjunctiva without injection, external ear normal to inspection and nontender, nares patent, moist mucus membranes, dentition intact, no oropharyngeal lesions, neck supple, trachea midline, no LAD, no thyromegaly, no JVD Heart: +S1/S2, regular, bradycardic, no m/r/g Lungs: equal air entry bilaterally, no rales/rhonchi/wheezes Abd: +BS, soft, NT/ND, no masses/organomegaly/ascites Ext: warm, 2+ pulses in UE/LE bilaterally, no clubbing/cyanosis or edema Neuro: nonfocal, patient AA&O x 4, speech intact, no facial droop, moving all extremities on command with equal strength 5/5 Results & Data Results & Data Vital Signs (Past 12 Hours) Vital Signs Temp Pulse Pulse Resp BP BP Pulse Ox 11/13/24 05:14 67 95/63 L 11/13/24 05:11 70 11/13/24 05:08 95/53 L 11/13/24 05:06 40 L 11/13/24 05:05 59 L 11/13/24 04:57 100 H 24 98 11/13/24 04:55 36.9 C 84 18 127/73 97 11/13/24 04:55 97 11/13/24 04:55 11/13/24 04:50 127/73 11/13/24 04:50 127/73 11/13/24 04:50 12773 11/13/24 04:48 102 H 17 11/13/24 04:47 109 H 11/13/24 04:45 192 H 9 L 11/13/24 04:44 195 H 11/13/24 04:39 36.9 C 196 H 18 104/69 97 O2 Del Method 11/13/24 05:14 11/13/24 05:11 11/13/24 05:08 11/13/24 05:06 11/13/24 05:05 11/13/24 04:57 11/13/24 04:55 Room Air 11/13/24 04:55 Room Air 11/13/24 04:55 Room Air 11/13/24 04:50 11/13/24 04:50 11/13/24 04:50 11/13/24 04:48 11/13/24 04:47 11/13/24 04:45 11/13/24 04:44 11/13/24 04:39 Room Air Laboratory Results Laboratory Results WBC 8.45 K/ul (4.8-10.8) 11/13/24 04:47 RBC 5.35 M/uL (4.70-6.10) 11/13/24 04:47 Hgb 17.2 g/dl (14.0-18.0) 11/13/24 04:47 POC Hgb 17.0 g/dl (14.0-18.0) 11/13/24 04:51 Hct 48.8 % (42.0-52.0) 11/13/24 04:47 POC Hct 50 % (42-52) 11/13/24 04:51 MCV 91.2 fL (80.0-100.0) 11/13/24 04:47 MCH 32.1 pg (25.0-34.0) 11/13/24 04:47 MCHC 35.2 g/dL (32.0-36.0) 11/13/24 04:47 RDW Std Deviation 44.1 fL (36.4-46.3) 11/13/24 04:47 RDW Coeff of Afshan 13.2 % (11.5-14.5) 11/13/24 04:47 Plt Count 229 K/uL (130-400) 11/13/24 04:47 MPV 9.7 fL (9.4-12.4) 11/13/24 04:47 Immature Gran % (Auto) 0.2 % 11/13/24 04:47 Neut % (Auto) 56.0 % 11/13/24 04:47 Lymph % (Auto) 32.7 % 11/13/24 04:47 Bradley % (Auto) 8.3 % 11/13/24 04:47 Eos % (Auto) 2.1 % 11/13/24 04:47 Baso % (Auto) 0.7 % 11/13/24 04:47 Neut # (Auto) 4.73 K/uL (1.40-6.50) 11/13/24 04:47 Lymph # (Auto) 2.76 K/uL (1.20-3.40) 11/13/24 04:47 Bradley # (Auto) 0.70 K/uL (0.11-0.59) H 11/13/24 04:47 Eos # (Auto) 0.18 K/uL (0.00-0.50) 11/13/24 04:47 Baso # (Auto) 0.06 K/uL (0.00-0.20) 11/13/24 04:47 Immature Gran # (Auto) 0.02 K/uL (0.01-0.20) 11/13/24 04:47 POC Sodium 141 mmol/L (135-144) 11/13/24 04:51 Sodium 139 mmol/L (136-145) 11/13/24 04:47 POC Potassium 3.7 mmol/L (3.3-5.0) 11/13/24 04:51 Potassium 3.8 mmol/L (3.5-5.1) 11/13/24 04:47 POC Chloride 101 mmol/L (101-112) 11/13/24 04:51 Chloride 103 mmol/L (98-107) 11/13/24 04:47 Carbon Dioxide 29 mmol/L (21-32) 11/13/24 04:47 POC Total CO2 24 mmol/L (24-31) 11/13/24 04:51 Anion Gap 7 (3-11) 11/13/24 04:47 POC Anion Gap 21.0 mmol/L (16-25) 11/13/24 04:51 POC BUN 18 mg/dl (7-18) 11/13/24 04:51 BUN 19 mg/dl (6-23) 11/13/24 04:47 Creatinine 1.33 mg/dl (0.6-1.4) 11/13/24 04:47 POC Creatinine 1.3 mg/dl (0.6-1.3) 11/13/24 04:51 Est Cr Clr Drug Dosing 69.5 ml/min 11/13/24 04:47 eGFR 61.57 11/13/24 04:47 BUN/Creatinine Ratio 14.3 (10-20) 11/13/24 04:47 Glucose 177 mg/dl (70-99(Fasting)) H 11/13/24 04:47 POC Glucose (other) 173 mg/dl (70-99) H 11/13/24 04:51 Calcium 9.5 mg/dl (8.6-10.3) 11/13/24 04:47 POC Ioniz Calcium Jorge 1.16 mmol/l (1.12-1.32) 11/13/24 04:51 Magnesium 2.1 mg/dl (1.7-2.4) 11/13/24 04:47 Total Bilirubin 0.6 mg/dl (0.2-1.0) 11/13/24 04:47 AST 30 U/L (13-39) 11/13/24 04:47 ALT 38 U/L (7-52) 11/13/24 04:47 Alkaline Phosphatase 77 U/L (34-104) 11/13/24 04:47 Troponin I High Sens 21.0 pg/ml (0-20) H 11/13/24 04:47 Total Protein 7.7 gm/dl (6.0-8.3) 11/13/24 04:47 Albumin 4.7 gm/dl (3.4-5.0) 11/13/24 04:47 Globulin 3.0 gm/dl (2.5-4.0) 11/13/24 04:47 Albumin/Globulin Ratio 1.6 (0.9-2) 11/13/24 04:47 TSH 3.453 uIu/ml (0.300-4.500) 11/13/24 04:47 ECG Additional Comments: EKG with marked ST/T wave abnormalities, elevation in aVR PG Care Time/CCT Total # of Minutes Spent Total Time Spent with Patient: Total time spent is greater than 50% in coordination of care (as documented) at patient's floor/unit and/or counseling patient: Coding Level of Care Code 44925 INT INP/OBS CARE 3/75MIN Diagnoses SVT (supraventricular tachycardia) I47.10 Symptomatic bradycardia R00.1 Abnormal EKG R94.31 Elevated troponin R79.89 Heart failure I50.9 Asthma J45.909 Hyperlipidemia E78.5
--- NOTE | 2024-11-13 06:04 | XRay Report ---
EXAM: XR chest 1V portable CLINICAL HISTORY: Dysrhythmia. TECHNIQUE: X-ray images of the chest were obtained in Anteroposterior (AP) projections. COMPARISON: 08/29/2024 08:13:01 RESEARCH PROFESSOR FINDINGS: Pulmonary Parenchyma: Bilateral increased bronchovascular markings and subtle lower zone atelactatic bands. No evidence of consolidation, collapse, or focal opacities. No pulmonary nodules were identified. No evidence of pleural effusion or pleural thickening. Heart and Mediastinum: Heart size and shape are normal. No mediastinal widening or masses. Bilateral bulky juani Bony Thorax: The bony thorax appears intact without fractures or deformities. Soft Tissues: Soft tissues overlying the chest wall are unremarkable. IMPRESSION: 1. No acute cardiopulmonary abnormalities were identified. 2. Comparison with the previous CT shows no time interval changes Electronically signed by Ming Gallegos 11-13-2024 06:03 AM
[2024-11-13] MEDS: ADENOSINE IV SOLN 3 MG/ML 2 ML VIAL IV ONE (06:07)
[2024-11-13] MEDS: ADENOSINE IV SOLN 3 MG/ML 2 ML VIAL IV STA ×2 (06:07)
[2024-11-13] MEDS ORDERED: ACETAMINOPHEN 325 MG TAB PO PRN (06:12)
[2024-11-13] MEDS ORDERED: ALBUTEROL 0.5% NEB SOLN 2.5 MG/0.5 ML VIAL NEB PRN (06:12)
[2024-11-13 06:26] VITALS: O2SAT 95
[2024-11-13 06:48] VITALS: RESP 13
[2024-11-13] MEDS: ROSUVASTATIN CALCIUM 10 MG TAB PO SCH (08:20)
[2024-11-13] MEDS: EMPAGLIFLOZIN 10 MG TAB PO SCH (08:21)
[2024-11-13] MEDS: FLUTICASONE/VILANTEROL 100/25MCG 14 PUFFS/INHALER INH SCH (08:23)
[2024-11-13] MEDS: VALSARTAN/SACUBITRIL 51/49 MG TAB PO SCH (09:49)
--- NOTE | 2024-11-13 10:26 | Cardiology Consultation ---
Date of Consultation November 13, 2024 Assessment & Plan (1) SVT (supraventricular tachycardia): (2) Cardiomyopathy: (3) Elevated troponin: Plan Mr. Payton is a 59-year-old male with a history of a Non-ischemic Cardiomyopathy, PSVT, Mild CAD(40% ostial D1 stenosis), Type 2 Diabetes Mellitus, ypertension, dyslipidemia, and asthma. Dr. Longoria is his primary safety counselor. Dr. Bird is EP. Also follows with [facility]. He was hospitalized on 08/29/2024 after presenting with SVT. One week prior to presentation, he felt palpitations for a few seconds while at work. It felt as though his heart was racing but symptoms spontaneously resolved. On 08/29/2024, he woke up at approximately 7 AM and noted palpitations. His heart rate was in the 200s. He felt a tightness in his neck and jaw. He has chronic neck pain after a fracture 4 years ago but this neck discomfort was different. When he came to the hospital, he was noted to have SVT near 200 bpm. He received adenosine and ER physician noted only brief break in the arrhythmia before it would return. Vagal maneuvers demonstrated similar findings. He then administered IV diltiazem and converted to sinus rhythm. When he converted, the neck and jaw tightness completely resolved. EP consulted and recommends catheter based therapy which was done the following day as outpatient. Patient was initially evaluated in our Heart Failure Clinic on 09/08/24. He was euvolemic. Not requiring diuretics. Olmesartan transitioned to Entresto. He was evaluated in our Heart Failure Clinic on 10/02/24. He was euvolemic, not requiring diuretics. Increasing Entresto was not well tolerated, resumed 24/26 mg. He saw EP at [facility]- recommended repeat EPS study with goal to ablate remaining pathway. Scheduled for late November. Patient was seen in Heart Failure Clinic on 11/12/24 and he was doing well. He reported feeling well since his previous visit. He has not heart failure symptoms. He denied any shortness of breath, palpitations, chest pain. He denied any edema in his extremities or abdomen. He denied orthopnea or PND. He has been weighing himself daily and his body weight has been holding steady at approximately 209 lb. BP and heart rates at home had also been stable. Follow up labs from 09/30/24 reviewed- stable renal function and electrolytes. Patient worked his usual shift of 2:00 p.m. to 10:00 p.m. yesterday (11/12/24) and felt well throughout his work shift. After he got home, he went to bed. At approximately 0330 his heart started racing and this woke him from sleep. He tried his usual vagal maneuvers, Valsalva, etc., but unfortunately his rhythm did not break. He decided to go into the emergency room for further evaluation and treatment. Upon arrival to the ER heart rate was 196 bpm. Vagal maneuvers performed which broke his PSVT and converted to a sinus rhythm (without any significant conversion pause). Patient subsequently had 2-3 episodes of near syncope associated with sinus bradycardia (rates as low as 40 bpm) -- however that resolved and has not recurred. Patient states that his neck hurts if his PSVT lasts for more than 25 or 30 minutes, but he does not experience any chest discomfort with his tachyarrhythmias. Patient specifically denies any chest pain, heaviness, tightness, pressure, or discomfort. He denies any jaw, back, or arm pain. He denies any shortness of breath, unusual dyspnea on exertion, orthopnea, or PND. His exertional tolerance has been stable. He has not had any syncope or loss of consciousness. 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 Please note that the patient had an EP study/PSVT ablation attempted on 09/03/2024. His EPS at that time suggested a left lateral atrial bypass tract and he is now scheduled to have an ablation with Dr. Eckert at [facility] on 12/15/24 which will hopefully be curative of his supraventricular tachycardia. Historically, the patient has had significant bradycardia with beta-blockers and he is not a candidate for a non dihydropyridine calcium channel veronica because of his reduced LV systolic function. Recommend the followin. Continue treating his underlying cardiomyopathy with guideline directed medical therapy. 2. We discussed using negative chronotropic medications, but patient did not tolerate beta-blockers in the past due to significant bradycardia. He is not a candidate for a non dihydropyridine CCB due to reduced LV systolic function. 3. Proceed with EPS/bypass tract ablation on 12/15/[address] Eckert. 4. Continue Entresto 49-51 mg every 12 hours. 5. Continue Jardiance 10 mg daily. 6. Continue Rosuvastatin 10 mg daily. 7. Monitor daily body weights. 8. Strict low-sodium diet. 9. Continue activities as tolerated. 10. We discussed Valsalva, carotid sinus massage, vagal maneuvers, mammalian diving reflex, etc. in order to break his PSVT if necessary. 11. His high sensitivity troponin I levels likely in the can demand ischemia secondary to tachyarrhythmia, however no further ischemic workup is necessary based on his minimal CAD on cardiac catheterization. Patient is stable for discharge from the hospital. He will continue to follow- up with our Heart Failure Clinic, and he plans to proceed with ablation on 12/15/[address] Eckert at [facility]. History of Present Illness Reason for Consultation: -- PSVT. Requesting Physician: Myron Salas DO Attending Physician: Ang Gamez MD History of Present Illness Mr. Payton is a 59-year-old male with a history of a Non-ischemic Cardiomyopathy, PSVT, Mild CAD(40% ostial D1 stenosis), Type 2 Diabetes Mellitus, ypertension, dyslipidemia, and asthma. Dr. Longoria is his primary safety counselor. Dr. Bird is EP. Also follows with [facility]. He was hospitalized on 08/29/2024 after presenting with SVT. One week prior to presentation, he felt palpitations for a few seconds while at work. It felt as though his heart was racing but symptoms spontaneously resolved. On 08/29/2024, he woke up at approximately 7 AM and noted palpitations. His heart rate was in the 200s. He felt a tightness in his neck and jaw. He has chronic neck pain after a fracture 4 years ago but this neck discomfort was different. When he came to the hospital, he was noted to have SVT near 200 bpm. He received adenosine and ER physician noted only brief break in the arrhythmia before it would return. Vagal maneuvers demonstrated similar findings. He then administered IV diltiazem and converted to sinus rhythm. When he converted, the neck and jaw tightness completely resolved. EP consulted and recommends catheter based therapy which was done the following day as outpatient. Patient was initially evaluated in our Heart Failure Clinic on 09/08/24. He was euvolemic. Not requiring diuretics. Olmesartan transitioned to Entresto. He was evaluated in our Heart Failure Clinic on 10/02/24. He was euvolemic, not requiring diuretics. Increasing Entresto was not well tolerated, resumed 24/26 mg. He saw EP at [facility]- recommended repeat EPS study with goal to ablate remaining pathway. Scheduled for late November. Patient was seen in Heart Failure Clinic on 11/12/24 and he was doing well. He reported feeling well since his previous visit. He has not heart failure symptoms. He denied any shortness of breath, palpitations, chest pain. He denied any edema in his extremities or abdomen. He denied orthopnea or PND. He has been weighing himself daily and his body weight has been holding steady at approximately 209 lb. BP and heart rates at home had also been stable. Follow up labs from 09/30/24 reviewed- stable renal function and electrolytes. Patient worked his usual shift of 2:00 p.m. to 10:00 p.m. yesterday (11/12/24) a nd felt well throughout his work shift. After he got home, he went to bed. At approximately 0330 his heart started racing and this woke him from sleep. He tried his usual vagal maneuvers, Valsalva, etc., but unfortunately his rhythm did not break. He decided to go into the emergency room for further evaluation and treatment. Upon arrival to the ER heart rate was 196 bpm. Vagal maneuvers performed which broke his PSVT and converted to a sinus rhythm (no significant conversion pause). Patient subsequently had 2-3 episodes of near syncope associated with sinus bradycardia (rate as low as 40 bpm) -- however that resolved and has not recurred. Patient states that his neck hurts if his PSVT last for more than 25 or 30 minutes, but he does not experience any chest discomfort with his tachyarrhythmias. Patient specifically denies any chest pain, heaviness, tightness, pressure, or discomfort. He denies any jaw, back, or arm pain. He denies any shortness of breath, unusual dyspnea on exertion, orthopnea, or PND. His exertional tolerance has been stable. He has not had any syncope or loss of consciousness. Recent cardiac studies: 1. 08/29/24 Echo: Moderately dilated LV with severely reduced EF 25-30%. Global hypokinesis. Mild concentric LVH. Mildly dilated RV with normal systolic function. Severe left atrial dilation. Mild MR. No right to left shunt. 2. 08/29/24 Cardiac cath: Left main: No significant CAD. Left anterior descending: Large caliber vessel that wraps around the apex. No significant CAD within the LAD. Large D1 with ostial 40%. Large D2 without significant CAD.Circumflex: No significant CAD within the circumflex, OM1, OM 2 branches. Right coronary artery: RCA is large and dominant. No significant CAD within the RCA, PDA, PL. LVEDP 12 mmHg. 3. 09/01/24 Echo: Severely dilated LV with moderate to severely reduced systolic function. EF 30-35%. Global hypokinesis. No LVH. Mildly dilated RV with normal function. Severe biatrial dilation. 4. 10/27/24 Echo: Nonischemic dilated cardiomyopathy. Atypical midwall enhancement in septal segments. Severe LV dysfunction. Moderately reduced RV dysfunction. Mildly elevated T1 suggesting subclinical myocardial fibrosis. EF27%. Family history: Maternal uncles had CAD. Father had some form of heart issue. Brother had diabetes. Social history: He denies tobacco, alcohol, or drug abuse. He lives at home with his , Sallie. Had 3 children but 1 . Has a son in [place] and a daughter in [place]. 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 [place] also [place]. Allergies Allergy/AdvReac Type Severity Reaction Status Date / Time aspirin Allergy Severe Shortness Verified 11/13/24 06:28 of Breath codeine Allergy Severe Shortness Verified 11/13/24 06:28 of Breath Penicillins Allergy Severe Shortness Verified 11/13/24 06:28 of Breath Home Medications Medication Instructions Recorded Confirmed Type rosuvastatin 10 mg tablet 10 mg PO QAM 06/12/24 11/13/24 History albuterol sulfate 90 mcg/actuation See Rx Instructions inhalation 09/07/24 11/13/24 Rx aerosol inhaler (Ventolin HFA) .COMPLEX PRN shortness of breath or wheezing #8.5 grams fluticasone furoate 100 1 inh inhalation DAILY #60 ea 02/19/25 04/25/25 Rx mcg-vilanterol 25 mcg/dose inhalation powder (Breo Ellipta) empagliflozin 10 mg tablet 10 mg PO DAILY #90 tabs 10/02/24 11/13/24 Rx (Jardiance) sacubitril 49 mg-valsartan 51 mg 1 tab PO BID 30 days #60 tabs 11/13/24 Rx tablet (Entresto) Patient History Medical History Hypertension Encounter for pre-operative examination Skin lesion of neck Pre-diabetes HERRERA-inhibitor cough PONV (postoperative nausea and vomiting) Skin lesion of neck Pre-diabetes Hypertension Hyperlipidemia Asthma Surgical History Hx of arthroscopy of left knee Hx of colonoscopy (2016) History of surgery Excision of Left Neck Lesion, 04/02/2024 - Dr. Osborn. Done in clinic under local anesthesia 06/23/24-Removal of left-sided post auricular lesion-Dr. 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 History of back surgery Lumbar History of appendectomy Family History Uncle Coronary heart disease Aunt Coronary heart disease Father Coronary heart disease Diabetes Hypertension Social History Smoking Status: Never smoker Second Hand Exposure: No; Do You Dip or Chew Tobacco: No; Hx Alcohol Use: No Hx Substance Use: No Preferred Language: Namibian Communication Ability: Effective Solder Technician Required: No Beliefs That Will Affect Care: None marital status: Current Living Situation: Spouse current occupational status: employed current occupation: [employer] How many Children do You have: 3 Feels Safe at Home: Yes Childhood Exposure to Second-Hand Smoke: No Diet: regular caffeine: Yes Dental Care, Regularly: No Physical Activity Frequency: Daily Seatbelt Use: always Sunscreen Use: No Assistive Devices: None Review of Systems Review of Systems: -- As per HPI. Physical Exam Physical Exam: Pulse 68 and regular, BP 118/66. GENERAL: Patient in no acute distress. HEENT: Head is atraumatic, normocephalic. EOM's intact. Facies symmetric. No perioral cyanosis. NECK: No JVD. JVP is not elevated. Carotid upstrokes are + 2 bilaterally without bruits. CHEST/LUNGS: Clear to auscultation throughout all lung donohue. No wheezes, rales, or crackles. CVS: S1 and S2 are regular without murmurs, gallops, or rubs. PMI is nonpalpable. No lifts, heaves, or thrills. No abdominal aortic or renal bruits. ABDOMINAL EXAM: Bowel sounds are present. EXTREMITIES: No clubbing or cyanosis. No edema. Extremities are well perfused. NEUROLOGIC EXAM: Patient is awake, alert, and oriented. Pleasant and cooperative. Answers questions appropriately. Speech is clear. ARC CUTTER PLASMA ARC: -- Initially in supraventricular tachyca rdia at 196 bpm, broke using vagal maneuvers. -- Since conversion, patient has maintai yessenia a normal sinus rhythm with heart rates in the 60s and 70s. Results & Data Vital Signs (Past 12 Hours) Vital Signs Temp Pulse Pulse Resp BP BP Pulse Ox 11/13/24 07:53 72 11/13/24 06:42 70 13 95 11/13/24 06:36 73 13 95 11/13/24 06:19 11/13/24 06:15 63 14 95 11/13/24 06:00 118/66 11/13/24 06:00 118/66 11/13/24 05:54 66 13 95 11/13/24 05:42 68 13 94 11/13/24 05:33 69 13 96 11/13/24 05:30 104/59 L 11/13/24 05:30 104/59 L 11/13/24 05:30 104/59 L 11/13/24 05:30 104/59 L 11/13/24 05:14 67 95/63 L 11/13/24 05:11 70 11/13/24 05:08 95/53 L 11/13/24 05:06 40 L 11/13/24 05:05 59 L 11/13/24 04:57 100 H 24 98 11/13/24 04:55 36.9 C 84 18 127/73 97 11/13/24 04:55 97 11/13/24 04:55 11/13/24 04:50 127/73 11/13/24 04:50 127/73 11/13/24 04:50 127/73 11/13/24 04:48 102 H 17 11/13/24 04:47 109 H 11/13/24 04:45 192 H 9 L 11/13/24 04:44 195 H 11/13/24 04:39 36.9 C 196 H 18 104/69 97 O2 Del Method 11/13/24 07:53 11/13/24 06:42 11/13/24 06:36 11/13/24 06:19 Room Air 11/13/24 06:15 11/13/24 06:00 11/13/24 06:00 11/13/24 05:54 11/13/24 05:42 11/13/24 05:33 11/13/24 05:30 11/13/24 05:30 11/13/24 05:30 11/13/24 05:30 11/13/24 05:14 11/13/24 05:11 11/13/24 05:08 11/13/24 05:06 11/13/24 05:05 11/13/24 04:57 11/13/24 04:55 Room Air 11/13/24 04:55 Room Air 11/13/24 04:55 Room Air 11/13/24 04:50 11/13/24 04:50 11/13/24 04:50 11/13/24 04:48 11/13/24 04:47 11/13/24 04:45 11/13/24 04:44 11/13/24 04:39 Room Air Laboratory Results Laboratory Results - last 24 hr 11/13/24 11/13/24 11/13/24 04:47 04:51 06:26 WBC 8.45 RBC 5.35 Hgb 17.2 POC Hgb 17.0 Hct 48.8 POC Hct 50 MCV 91.2 MCH 32.1 MCHC 35.2 RDW Std Deviation 44.1 RDW Coeff of Afshan 13.2 Plt Count 229 MPV 9.7 Immature Gran % (Auto) 0.2 Neut % (Auto) 56.0 Lymph % (Auto) 32.7 [place] % (Auto) 8.3 Eos % (Auto) 2.1 Baso % (Auto) 0.7 Neut # (Auto) 4.73 Lymph # (Auto) 2.76 [place] # (Auto) 0.70 H Eos # (Auto) 0.18 Baso # (Auto) 0.06 Immature Gran # (Auto) 0.02 POC Sodium 141 Sodium 139 POC Potassium 3.7 Potassium 3.8 POC Chloride 101 Chloride 103 Carbon Dioxide 29 POC Total CO2 24 Anion Gap 7 POC Anion Gap 21.0 POC BUN 18 BUN 19 Creatinine 1.33 POC Creatinine 1.3 Est Cr Clr Drug Dosing 69.5 eGFR 61.57 BUN/Creatinine Ratio 14.3 Glucose 177 H POC Glucose (other) 173 H Calcium 9.5 POC Ioniz Calcium Jorge 1.16 Magnesium 2.1 Total Bilirubin 0.6 AST 30 ALT 38 Alkaline Phosphatase 77 Troponin I High Sens 21.0 H 80.6 H* D B-Natriuretic Peptide 233 H Total Protein 7.7 Albumin 4.7 Globulin 3.0 Albumin/Globulin Ratio 1.6 TSH 3.453 Medications Administered Medication List Empagliflozin (Empagliflozin 10 Mg Tab) 10 mg PO DAILY [facility] Stop: 12/13/24 08:59 Last Admin: 11/13/24 08:21 Dose: 10 mg Documented By: SAMMY Fluticasone/Vilanterol (Fluticasone/Vilanterol 100/25mcg 14 Puffs/Inhaler) 1 puffs INH DAILY [facility] Stop: 12/13/24 08:59 Last Admin: 11/13/24 08:23 Dose: 1 puffs Documented By: SAMMY Rosuvastatin Calcium (Rosuvastatin Calcium 10 Mg Tab) 10 mg PO QAM [facility] Stop: 12/13/24 08:59 Last Admin: 11/13/24 08:20 Dose: 10 mg Documented By: SAMMY Sacubitril/Valsartan (Valsartan/Sacubitril 51/49 Mg Tab) 1 tab PO BID [facility] Stop: 12/13/24 09:29 Last Admin: 11/13/24 09:49 Dose: 1 tab Documented By: SAMMY Discontinued Medications Adenosine (Adenosine Iv Soln 3 Mg/Ml 2 Ml Vial) Confirm Administered Dose 18 mg IV .STK-MED ONE Stop: 11/13/24 04:44 Last Admin: 11/13/24 06:07 Dose: Not Given Documented By: YARA Adenosine (Adenosine Iv Soln 3 Mg/Ml 2 Ml Vial) 6 mg IV NOW STA Stop: 11/13/24 04:46 Last Admin: 11/13/24 06:07 Dose: Not Given Documented By: YARA Adenosine (Adenosine Iv Soln 3 Mg/Ml 2 Ml Vial) 12 mg IV NOW STA Stop: 11/13/24 04:46 Last Admin: 11/13/24 06:07 Dose: Not Given Documented By: YARA PG Care Time/CCT Total # of Minutes Spent Total Time Spent with Patient: Total time spent is greater than 50% in coordination of care (as documented) at patient's floor/unit and/or counseling patient:35 C[place] [address] IN/OBS CONSULT LVL 4,60M Patient Type Established History Detailed Exam Detailed Medical Decision Making Moderate Complexity Diagnoses SVT (supraventricular tachycardia) I47.10 Dilated cardiomyopathy I42.0 Cardiomyopathy type: dilated Elevated troponin R79.89 Time Spent (min) 65 (2) Cardiomyopathy Cardiomyopathy type: dilated Qualified Code(s): I42.0 - Dilated cardiomyopathy
--- NOTE | 2024-11-13 10:29 | Electrocardiogram Report ---
Test Reason : Blood Pressure : */* mmHG Vent. Rate : 114 BPM Atrial Rate : 111 BPM P-R Int : 170 ms QRS Dur : 108 ms QT Int : 342 ms P-R-T Axes : 78 -31 106 degrees QTcB Int : 471 ms Sinus tachycardia Consecutive PVCs Left axis deviation Marked ST abnormality, possible inferior subendocardial injury Marked ST abnormality, possible anterolateral subendocardial injury Abnormal ECG When compared with ECG of 03-Sep-2024 12:57, Significant changes have occurred Confirmed by Ang Gamez ([id number]) on 11/13/2024 10:28:44 AM Referred By: REFERRED SELF Confirmed By: Ang Gamez
--- NOTE | 2024-11-13 10:29 | Electrocardiogram Report ---
Test Reason : Blood Pressure : */* mmHG Vent. Rate : 64 BPM Atrial Rate : 64 BPM P-R Int : 170 ms QRS Dur : 114 ms QT Int : 466 ms P-R-T Axes : 57 -8 61 degrees QTcB Int : 480 ms Sinus rhythm with occasional Premature ventricular complexes Nonspecific ST abnormality Prolonged QT Abnormal ECG When compared with ECG of 13-Nov-2024 04:46, (unconfirmed) Previous ECG has undetermined rhythm, needs review ST less depressed in Inferior leads ST no longer depressed in Anterior leads Confirmed by Ang Gamez ([id number]) on 11/13/2024 10:28:52 AM Referred By: REFERRED SELF Confirmed By: Ang Gamez
--- NOTE | 2024-11-13 10:42 | Discharge Summary ---
Date of Service November 13, 2024 Admission HPI Per Admitting Provider Josh Payton is a 59-year-old male with history of HFrEF, nonischemic cardiomyopathy (last echo performed 09/01/2024 with severely dilated left ventricle with moderately to severely reduced systolic ejection fraction 30 to 35%, global hypokinesis, mildly dilated RV with normal function, severe biatrial dilation), SVT status post ablation presenting with palpitations. Patient was in his usual state of health. Was awoken this morning around 03 30 with palpitations and racing heart. He reports this felt similar to his prior episodes of SVT. He tried all of his vagal maneuvers at home but was unable to break the rhythm. Upon arrival to the ER heart rate at 196 bpm. Vagal maneuvers performed which broke patient into a sinus rhythm. Patient subsequently had 2-3 episodes of near syncope associated with sinus bradycardia (rate as low as 40 bpm). No additional complaints. Denies chest pain, cough, shortness of breath, edema, weight gain. Denies recent illness, nausea, vomiting, diarrhea. Patient had similar presentation in August with SVT and symptomatic bradycardia. He was managed in the ICU for short-term with dopamine. Cardiac catheterization performed on August 31, 2024 which showed nonob structive coronary artery disease and nonischemic cardiomyopathy Cardiac MRI was consistent with fibrosis Patient seen by heart failure clinic yesterday November 12. Entresto was increased from 24/26 mg p.o. twice daily to 49/51 mg p.o. twice daily He is scheduled to see Dr. Eckert at [facility] for ablation next month ER course: vagal maneuvers Placement of external pacer pads Admission Exam Per Admitting Provider General: patient resting comfortably, NAD, non-toxic in appearance, AA&O x 4 Skin: warm, dry, intact, no rashes or lesions HEENT: NC/AT, PERRL, EOMI, anicteric sclera, conjunctiva without injection, external ear normal to inspection and nontender, nares patent, moist mucus membranes, dentition intact, no oropharyngeal lesions, neck supple, trachea midline, no LAD, no thyromegaly, no JVD Heart: +S1/S2, regular, bradycardic, no m/r/g Lungs: equal air entry bilaterally, no rales/rhonchi/wheezes Abd: +BS, soft, NT/ND, no masses/organomegaly/ascites Ext: warm, 2+ pulses in UE/LE bilaterally, no clubbing/cyanosis or edema Neuro: nonfocal, patient AA&O x 4, speech intact, no facial droop, moving all extremities on command with equal strength 5/5 Principal Diagnosis SVT/ Symptomatic bradycardia Discharge Exam Constitutional: well-appearing, no acute distress HEENT: NCAT, no conjunctival injection CV: regular rhythm, no murmur appreciated, extremities well-perfused, no LE alia ma Resp: CTABL, no wheezes/rales/rhonchi appreciated, no increased work of breathing GI: soft, nondistended, nontender, BS normoactive MSK: no gross deformities appreciated Skin: warm, dry, no rash appreciated Neuro: alert, oriented, no focal neurologic deficit appreciated Discharge Data Allergies Allergy/AdvReac Type Severity Reaction Status Date / Time aspirin Allergy Severe Shortness Verified 11/13/24 06:28 of Breath codeine Allergy Severe Shortness Verified 11/13/24 06:28 of Breath Penicillins Allergy Severe Shortness Verified 11/13/24 06:28 of Breath Consultations 11/13/24 05:43 Consult Cardiology Routine Hospital Course (1) SVT (supraventricular tachycardia): (2) Symptomatic bradycardia: (3) Cardiomyopathy: (4) Asthma: (5) Hyperlipidemia: Plan 59-year-old male with history of nonischemic cardiomyopathy, last EF = 27% per cardiac MRI, history of SVT status post ablation presenting with episode of palpitations which woke him from sleep. Patient found to be in SVT with heart rates in the 190s which responded to vagal maneuvers performed in the emergency room. Patient then developed symptomatic bradycardia with heart rate into the 40s and feeling of near syncope. At time of discharge in sinus rhythm at 70's bpm, feeling improved overall. #SVTpatient with known history. He is scheduled to see Dr. Eckert at [facility] next month for a repeat ablation. Electrolytes well-controlled. Cardiology consultation. Okay with discharge with no changes to medicine. #Symptomatic bradycardiapatient with history of similar in the past Maintain pacer pads Cardiology consult appreciated. No changes needed. Would avoid atropine if possible due to risk of inducing reentry tachycardia #Abnormal EKGpatient with ST depressions present in ED, QRS = 100 ms Troponin trended and went from 21 to 80, most likely likely demand ischemia Cardiology consult. no changes. Okay with DC #Nonischemic cardiomyopathypatient with markedly reduced EF of 27% per recent cardiac MRI, dilated LV and RA and LA. He is on medical management with empagliflozin as well as Entresto. He has been unable to tolerate beta-blockers in the past due to bradycardia. Entresto recently increased yesterday at heart failure clinic. Presently appears compensated with no edema, weight gain, shortness of breath. Plan is to optimize medical management and repeat echo to assess potential improvement in EF. 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 Last echo on 09/01/2024 Continue Jardiance Cardio consulted, Continue Entresto at current dose. #Asthmawell-controlled, no cough, shortness of breath or wheeze Continue Breo Ellipta Albuterol as needed Total Time Total Time Spent Total Time Spent (In Minutes): <30 Discharge Plan Discharge Items Patient Disposition: Home - Self-Care Reason For Visit: SVT, SYMPTOMATIC BRADYCARDIA Discharge Diagnosis: SVT, Symptomatic Bradycardia Condition on Discharge: Good Activity: Resume your previous activity Non-emergency contact: Primary Care Provider and Robotic Technician Call non-emergency contact if: you have any medication questions, your temperature is above 101.5 and your wound pain has increased Follow-up/Referrals: Noe Gallegos, [Primary Care Provider] - Diet: Heart Healthy Addtl Attending Provider Instructions: You were admitted to the hospital for SVT and then symptomatic bradycardia. He was treated with medications and got better. A discharge summary will be sent to your primary care physician to ensure continuity of care. Please bring this discharge summary with you to your next office appointment so that your provider can review it at that time. Follow-up appointments: * Make a follow-up appointment with your PCP within the next week. It is very important that you follow up with them shortly after discharge from the hospital. * You have an appointment for repeat PSVT ablation at [facility] [place] with Dr Carmina Mendoza on 12/15/24. Please keep this appointment as it is very important for your care. * Keep all your follow-up appointments as already scheduled. If you cannot make an appointment, notify your provider. Medications: Your medication list has been reviewed and reconciled upon discharge to ensure accuracy and continuity of care. An updated list of all your medications is included with your hospital discharge paperwork. Please review this list closely, and make note of any changes. * No changes to your dose was made during this visit. Please continue all medications that your are currently prescribed. * If you have any issues filling these prescriptions, please call [phone] and ask to leave a message for Dr. Pete. * Take your medications as instructed; do not skip a dose of your medicines. Make sure all of your doctors know every medicine you are taking (including rsjx-yji-jjinbic medicines, vitamins, and supplements). Call your primary care provider before taking any new medicines (including over- the-counter medicines, vitamins, and supplements), because some of these may interact with your current medications, or may make your symptoms worse. Tell your primary care provider if you cannot afford your medications. CONTACT YOUR PRIMARY CARE PROVIDER if you experience any of the following: * Worsening of symptoms * Fever, chills, or fatigue * Difficulty following your treatment plan, or difficulty taking medications CALL 911 OR GO TO THE EMERGENCY DEPARTMENT if you experience any of the following: * Sudden, severe abdominal pain or nausea/vomiting * Severe chest pain, or chest pain that radiates (moves) to your jaw or arm * Sudden, severe shortness of breath or difficulty breathing Thank you for allowing us to participate in your care. Pending Studies at Discharge: No Stand-Alone Forms: My [facility], Smoking Cessation Medications and DC Order Prescriptions: New Entresto 49-51 mg Tablet 1 tab PO BID 30 Days Qty: 60 0RF Continued fluticasone furoate-vilanterol [Breo Ellipta] 100-25 mcg/dose blister with device 1 inh inhalation DAILY Qty: 60 4RF Rx Instructions: rinse mouth with water after each use Jardiance 10 mg tablet 10 mg PO DAILY Qty: 90 3RF albuterol sulfate [Ventolin HFA] 90 mcg/actuation HFA aerosol inhaler See Rx Instructions inhalation .COMPLEX PRN (Reason: shortness of breath or wheezing) Qty: 8.5 5RF Rx Instructions: 1-2 INH 4-6 PRN; rosuvastatin 10 mg tablet 10 mg PO QAM Discharge Orders: Discharge Order (Routine); Ordered 11/13/24 Ordered By: Sarwat Pete Admission Data Admit Date/Time: 11/13/24 05:43 Attending Provider: Myron Salas Admit Provider: Colleen Henry Primary Care Provider: Noe Gallegos Other Providers: Ang Gamez Other Interventions: Discharge Summary Assessment (RN) Last Done: 11/13/24 11:09 Supervising Physician Co-Signing Physician Notes I personally examined the patient and verified all head points of history and exam, discussed case, and agree with decision making with Dr Pete feeling better. No shortness of breath. SVT has resolved. Cardiology saw. Stable for home. Ablation at [facility] in a few weeks. Extensive discussionsdiscussed pathophysiology/management of SVT in detail, discussed idiopathic cardiomyopathy and management in detail. Answered all questions to the best my ability and patient satisfaction. Vitals noted, in general he is awake and alert pleasant no distress. HEENT normocephalic atraumatic mucous membranes moist. Breathing unlabored no accessory muscle use good effort. Lungs show no rales rhonchi or wheezes with good effort. Skin without rashes pallor or icterus. Neuro without focal deficits. [facility]now resolved[facility] for [facility]. Appears to have had no significant "fallout" from this particular episode of SVT nonischemic cardiomyopathyjust recently started on Entresto, cardiology managing and titrating. Discussed overall management of nonischemic cardiomyopathy as well as typical etiologies/pathophysiology . Answered all questions the best my ability and patient satisfaction. Safe/stable for home.
[2024-11-13 11:11] VITALS: BP 127/73; PULSE 84
--- NOTE | 2024-11-13 13:10 | Billing Data ---
Date of Service November 13, 2024 Coding Level of Care Code 50189 IN/OBS DISCH 30 MIN/LESS
== END 2024-11-13 11:09 | disposition home or self-care (01) | DRG 309 ==
LOC: ED 04:37 → SUATTDRO 05:43 → EDINP 05:43
DX: Z88.0 Allergy status to penicillin; I25.10 Atherosclerotic heart disease of native coronary artery without angina pectoris; Z88.6 Allergy status to analgesic agent; R00.1 Bradycardia, unspecified; E11.9 Type 2 diabetes mellitus without complications; I42.8 Other cardiomyopathies; E78.5 Hyperlipidemia, unspecified; Z88.5 Allergy status to narcotic agent; I47.10 Supraventricular tachycardia, unspecified; Z79.899 Other long term (current) drug therapy; J45.909 Unspecified asthma, uncomplicated

== ENCOUNTER 2025-03-28 22:08 | Inpatient (IN) ==
[2025-03-28] MEDS: ADENOSINE IV SOLN 3 MG/ML 2 ML VIAL IV STA ×3 (22:22→22:32)
[2025-03-28 22:40] LABS: Hematocrit (blood only) 43.4 % (42.0-52.0); Hemoglobin 14.7 g/dl (14.0-18.0); Immature Granulocytes # (auto) 0.02 K/uL (0.01-0.20); Immature Granulocytes % (auto) 0.3 %; Mean Corpuscular Hemoglobin 31.7 pg (25.0-34.0); Mean Corpuscular Volume 93.7 fL (80.0-100.0); Platelet Count 188 K/uL (130-400); RDW Standard Deviation 44.6 fL (36.4-46.3); Red Blood Count 4.63 M/uL (4.70-6.10); White Blood Count 6.39 K/ul (4.8-10.8)
[2025-03-28] MEDS: ETOMIDATE 2 MG/ML 20 ML VIAL IV ONE ×2 (22:44→22:51)
--- NOTE | 2025-03-28 22:50 | Pre Anesthesia Assessment ---
Date of Service March 28, 2025 Pre Sedation Assessment Vital Signs Temp Pulse Resp BP Pulse Ox O2 Del Method 03/28/25 22:45 109 H 03/28/25 22:25 184 H 03/28/25 22:14 36.8 C 200 H 18 115/78 97 Room Air Pre-Sedation Airway Assessment Smoking Status: Never smoker Hx Sleep Apnea: No Hx Difficult Intubation: No Notes The planned sedation has been discussed with the patient. Informed Consent was obtained. I have identified the patient, determined the appropriateness of sedation and have assessed the patient immediately prior to the procedure. All medicine(s) and interventions are by my order.
[2025-03-28 22:56] LABS: Alanine Aminotransferase 27 U/L (7-52); Albumin Globulin Ratio 1.6 (0.9-2); Alkaline Phosphatase 78 U/L (34-104); Anion Gap 9 (3-11); Bilirubin,Total 0.4 mg/dl (0.2-1.0); Blood Urea Nitrogen 21 mg/dl (6-23); Calcium 9.1 mg/dl (8.6-10.3); Carbon Dioxide 30 mmol/L (21-32); Chloride 103 mmol/L (98-107); Globulin 2.7 gm/dl (2.5-4.0); Glucose 152 mg/dl (70-99(Fasting)); Magnesium 2.2 mg/dl (1.7-2.4); Potassium 4.1 mmol/L (3.5-5.1); Sodium 142 mmol/L (136-145); Total Protein 7.1 gm/dl (6.0-8.3)
[2025-03-28] MEDS: ADENOSINE IV SOLN 3 MG/ML 2 ML VIAL IV ONE (22:59)
[2025-03-28 23:12] LABS: Thyroid Stimulating Hormone 3.339 uIu/ml (0.300-4.500)
--- NOTE | 2025-03-28 23:57 | Emergency Department Note ---
History of Present Illness General Chief complaint: Tachycardia Stated complaint: TACHY Time Seen by Provider: 03/28/25 22:12 History of Present Illness This 60-year-old male presents to ER for SVT. Has been in and out of SVT all weekend. He has been seen by myself in the past. He tried vagal maneuvers at home with no success. He has been cardioverted and has had 2 ablations in the past. Patient states he feels like his heart is racing. He denies chest pain, dyspnea, fever, chills or any other medical complaints. He follows with cardiology here and at [place]. Home Medications Medication Instructions Recorded Confirmed Type empagliflozin 10 mg tablet 10 mg PO DAILY #90 tabs 10/02/24 03/28/25 Rx (Jardiance) rosuvastatin 10 mg tablet 10 mg PO QAM #90 tabs 11/20/24 03/28/25 Rx sacubitril 49 mg-valsartan 51 mg 1 tab PO BID #180 tabs 11/24/24 03/28/25 Rx tablet (Entresto) fluticasone furoate 100 1 inh inhalation DAILY #60 ea 12/07/24 03/28/25 Rx mcg-vilanterol 25 mcg/dose inhalation powder (Breo Ellipta) albuterol sulfate 90 mcg/actuation 1 - 2 puff inhalation .EVERY 4-6 03/28/25 03/28/25 History aerosol inhaler (Ventolin HFA) HOURS PRN shortness of breath or wheezing Allergies Allergy/AdvReac Type Severity Reaction Status Date / Time aspirin Allergy Severe Shortness Verified 03/03/25 12:54 of Breath codeine Allergy Severe Shortness Verified 03/03/25 12:54 of Breath Penicillins Allergy Severe Shortness Verified 03/03/25 12:54 of Breath Past Med/Surg History Problem List (Updated 03/29/25 @ 00:47 by Myah Fonseca PA-C) Diabetes mellitus Degenerative disc disease, cervical C2 cervical fracture SVT (supraventricular tachycardia) (Acute) Heart failure Abnormal EKG (Acute) SVT (supraventricular tachycardia) (Acute) PAU (acute kidney injury) CAD (coronary artery disease) Symptomatic bradycardia Sinus bradycardia Dyspnea on exertion Cardiomyopathy Abnormal ECG (Acute) Elevated troponin (Acute) SVT (supraventricular tachycardia) (Acute) Basal cell carcinoma S/P excision of skin lesion, follow-up exam Asthma (Acute) Hyperlipidemia (Acute) Lumbar disc disease (Acute) Medical History Hypertension Encounter for pre-operative examination Skin lesion of neck Pre-diabetes HERRERA-inhibitor cough PONV (postoperative nausea and vomiting) Skin lesion of neck Pre-diabetes Hypertension Hyperlipidemia Asthma Surgical History Hx of arthroscopy of left knee Hx of colonoscopy (2017) History of surgery History of tonsillectomy History of testicular surgery History of back surgery History of appendectomy Family History Uncle Coronary heart disease Aunt Coronary heart disease Father Coronary heart disease Diabetes Hypertension Social History Smoking Status: Never smoker Second Hand Exposure: No; Do You Dip or Chew Tobacco: No; Hx Alcohol Use: No Hx Substance Use: No Preferred Language: Kyrgyz Communication Ability: Effective Patient Registration Supervisor Required: No Beliefs That Will Affect Care: None marital status: Current Living Situation: Spouse current occupational status: employed current occupation: [employer] How many Children do You have: 3 Feels Safe at Home: Yes Childhood Exposure to Second-Hand Smoke: No Diet: regular caffeine: Yes Dental Care, Regularly: No Physical Activity Frequency: Daily Seatbelt Use: always Sunscreen Use: No Assistive Devices: None Review of Systems A total of 10 systems reviewed and were otherwise negative Physical Exam Vital Signs Vital Signs - 24 hr 03/28/25 22:14 03/28/25 22:21 03/28/25 22:25 Temperature 36.8 C Temperature Source Temporal Artery Scan Pulse Rate 200 H 183 H 184 H Pulse Rate from SpO2 Sensor 184 H Respiratory Rate 18 22 Respiratory Effort / Characteristics Non-Labored Spontaneous Respiratory Depth Normal Respiratory Pattern Regular Blood Pressure 115/78 131/92 Blood Pressure [Right Arm] Blood Pressure Mean 90 105 Blood Pressure Position Sitting Pulse Oximetry 97 97 Oxygen Delivery Method Room Air Oxygen Flow Rate Sepsis Recent Fever Within 48 Hours No Sepsis New/Unexplained Change in Mental Status N/A Sepsis Action Taken by Nursing No Action Required End-Tidal CO2 End Tidal CO2 (18-54mmHg) 03/28/25 22:30 03/28/25 22:44 03/28/25 22:45 Temperature Temperature Source Pulse Rate 189 H 190 H 109 H Pulse Rate from SpO2 Sensor 189 H Respiratory Rate 16 Respiratory Effort / Characteristics Respiratory Depth Respiratory Pattern Blood Pressure 126/85 Blood Pressure [Right Arm] 124/105 H Blood Pressure Mean 109 Blood Pressure Position Pulse Oximetry 100 Oxygen Delivery Method Non-rebreather Oxygen Flow Rate 15 Sepsis Recent Fever Within 48 Hours Sepsis New/Unexplained Change in Mental Status Sepsis Action Taken by Nursing End-Tidal CO2 End Tidal CO2 (18-54mmHg) 37 03/28/25 22:45 03/28/25 22:48 03/28/25 22:49 Temperature Temperature Source Pulse Rate 193 H 91 H Pulse Rate from SpO2 Sensor Respiratory Rate 15 16 Respiratory Effort / Characteristics Respiratory Depth Respiratory Pattern Blood Pressure 157/102 H Blood Pressure [Right Arm] 141/100 H 157/102 H Blood Pressure Mean 120 Blood Pressure Position Pulse Oximetry 100 100 Oxygen Delivery Method Non-rebreather Non-rebreather Oxygen Flow Rate 15 15 Sepsis Recent Fever Within 48 Hours Sepsis New/Unexplained Change in Mental Status Sepsis Action Taken by Nursing End-Tidal CO2 End Tidal CO2 (18-54mmHg) 38 42 03/28/25 22:50 03/28/25 22:51 03/28/25 22:52 Temperature Temperature Source Pulse Rate 91 H Pulse Rate from SpO2 Sensor 89 Respiratory Rate 13 Respiratory Effort / Characteristics Respiratory Depth Respiratory Pattern Blood Pressure 152/96 H 152/96 H 134/83 Blood Pressure [Right Arm] Blood Pressure Mean 112 114 102 Blood Pressure Position Pulse Oximetry 100 Oxygen Delivery Method Oxygen Flow Rate Sepsis Recent Fever Within 48 Hours Sepsis New/Unexplained Change in Mental Status Sepsis Action Taken by Nursing End-Tidal CO2 40 End Tidal CO2 (18-54mmHg) 03/28/25 22:54 03/28/25 22:54 03/28/25 22:59 Temperature Temperature Source Pulse Rate 77 77 Pulse Rate from SpO2 Sensor Respiratory Rate 16 18 Respiratory Effort / Characteristics Respiratory Depth Respiratory Pattern Blood Pressure Blood Pressure [Right Arm] 132/74 125/86 Blood Pressure Mean Blood Pressure Position Pulse Oximetry 100 100 99 Oxygen Delivery Method Room Air Room Air Room Air Oxygen Flow Rate Sepsis Recent Fever Within 48 Hours Sepsis New/Unexplained Change in Mental Status Sepsis Action Taken by Nursing End-Tidal CO2 End Tidal CO2 (18-54mmHg) 42 44 03/28/25 23:04 03/28/25 23:09 03/28/25 23:12 Temperature Temperature Source Pulse Rate 72 81 76 Pulse Rate from SpO2 Sensor Respiratory Rate 16 18 Respiratory Effort / Characteristics Respiratory Depth Respiratory Pattern Blood Pressure Blood Pressure [Right Arm] 120/75 113/83 Blood Pressure Mean Blood Pressure Position Pulse Oximetry 99 95 Oxygen Delivery Method Room Air Room Air Oxygen Flow Rate Sepsis Recent Fever Within 48 Hours Sepsis New/Unexplained Change in Mental Status Sepsis Action Taken by Nursing End-Tidal CO2 End Tidal CO2 (18-54mmHg) 40 40 03/28/25 23:14 03/28/25 23:19 03/28/25 23:39 Temperature Temperature Source Pulse Rate 74 72 77 Pulse Rate from SpO2 Sensor 78 Respiratory Rate 18 18 16 Respiratory Effort / Characteristics Respiratory Depth Respiratory Pattern Blood Pressure Blood Pressure [Right Arm] 121/77 120/86 Blood Pressure Mean Blood Pressure Position Pulse Oximetry 92 93 96 Oxygen Delivery Method Room Air Room Air Room Air Oxygen Flow Rate Sepsis Recent Fever Within 48 Hours Sepsis New/Unexplained Change in Mental Status Sepsis Action Taken by Nursing End-Tidal CO2 45 End Tidal CO2 (18-54mmHg) 41 44 03/28/25 23:40 03/28/25 23:43 03/28/25 23:45 Temperature Temperature Source Pulse Rate 76 Pulse Rate from SpO2 Sensor 68 Respiratory Rate 18 Respiratory Effort / Characteristics Respiratory Depth Respiratory Pattern Blood Pressure 110/72 117/84 Blood Pressure [Right Arm] Blood Pressure Mean 83 93 Blood Pressure Position Pulse Oximetry 94 Oxygen Delivery Method Room Air Oxygen Flow Rate Sepsis Recent Fever Within 48 Hours Sepsis New/Unexplained Change in Mental Status Sepsis Action Taken by Nursing End-Tidal CO2 44 End Tidal CO2 (18-54mmHg) 03/28/25 23:51 03/28/25 23:52 Temperature Temperature Source Pulse Rate 75 Pulse Rate from SpO2 Sensor 76 Respiratory Rate 15 Respiratory Effort / Characteristics Respiratory Depth Respiratory Pattern Blood Pressure 120/69 Blood Pressure [Right Arm] Blood Pressure Mean 81 Blood Pressure Position Pulse Oximetry 94 Oxygen Delivery Method Room Air Oxygen Flow Rate Sepsis Recent Fever Within 48 Hours Sepsis New/Unexplained Change in Mental Status Sepsis Action Taken by Nursing End-Tidal CO2 44 End Tidal CO2 (18-54mmHg) VITALS: Vitals are noted on the nurse's note and reviewed by myself. Vital signs tachycardic GENERAL: Pleasant gentleman with present, in no acute distress, nondiaphoretic, well-developed well-nourished. SKIN: Capillary reflex less than 2 seconds. HEENT: Normocephalic. PERRLA. EOMI. Nares patent. Mucous membranes moist. Neck is supple without nuchal rigidity. HEART: Tachycardic rate and rhythm LUNGS: Clear to auscultation bilaterally without wheezes, rales or rhonchi. No retractions or accessory muscle use. ABDOMEN: Positive bowel sounds x 4. Normal tympanic percussion. Soft, nontender, without masses or organomegaly. Topete sign negative. No guarding or rebound tenderness. no CVA tenderness MUSCULOSKELETAL: No gross musculoskeletal defects. NEURO: Patient was alert and oriented to person place and time. No focal neurological deficits. Course Administered Medications Discontinued Medications Adenosine (Adenosine Iv Soln 3 Mg/Ml 2 Ml Vial) Confirm Administered Dose 18 mg IV .STK-MED ONE Stop: 03/28/25 22:16 Last Admin: 03/28/25 22:59 Dose: Not Given Documented By: JM Adenosine (Adenosine Iv Soln 3 Mg/Ml 2 Ml Vial) 6 mg IV NOW STA Stop: 03/28/25 22:16 Last Admin: 03/28/25 22:22 Dose: 6 mg Documented By: JM Adenosine (Adenosine Iv Soln 3 Mg/Ml 2 Ml Vial) 12 mg IV NOW STA Stop: 03/28/25 22:16 Last Admin: 03/28/25 22:28 Dose: 12 mg Documented By: JM Adenosine (Adenosine Iv Soln 3 Mg/Ml 2 Ml Vial) 12 mg IV NOW STA Stop: 03/28/25 22:26 Last Admin: 03/28/25 22:32 Dose: 12 mg Documented By: JM Etomidate (Etomidate 2 Mg/Ml 20 Ml Vial) Confirm Administered Dose 40 mg IV .STK-MED ONE Stop: 03/28/25 22:33 Last Admin: 03/28/25 22:51 Dose: Not Given Documented By: Etomidate (Etomidate 2 Mg/Ml 20 Ml Vial) 15 mg IV NOW ONE Stop: 03/28/25 22:36 Last Admin: 03/28/25 22:44 Dose: 15 mg Documented By: Critical Care Time Critical Care Time: Yes Total Critical Care Time: 65 I have personally spent 65 minutes of critical care time in the direct management of this patient. This includes bedside care, interpretation of diagnostic studies, and testing, discussion with consultants, patient, and family members, and other required patient management activities. This 65 minutes is in excess of all separately billable procedures. Medical Decision Making Medical Records Attestation: I reviewed the patient's medical records. Home Medications Current Medication List: was personally reviewed by me Laboratory Data Attestation: I reviewed the patient's lab results. 03/28/25 22:24 03/28/25 22:24 Lab Results 03/28/25 03/28/25 Range/Units 22:24 22:27 WBC 6.39 (4.8-10.8) K/ul RBC 4.63 L (4.70-6.10) M/uL Hgb 14.7 (14.0-18.0) g/dl POC Hgb 15.0 (14.0-18.0) g/dl Hct 43.4 (42.0-52.0) % POC Hct 44 (42-52) % MCV 93.7 (80.0-100.0) fL MCH 31.7 (25.0-34.0) pg MCHC 33.9 (32.0-36.0) g/dL RDW Std Deviation 44.6 (36.4-46.3) fL RDW Coeff of Afshan 12.9 (11.5-14.5) % Plt Count 188 (130-400) K/uL MPV 9.7 (9.4-12.4) fL Immature Gran % (Auto) 0.3 % Neut % (Auto) 49.8 % Lymph % (Auto) 33.0 % Door % (Auto) 11.4 % Eos % (Auto) 4.7 % Baso % (Auto) 0.8 % Neut # (Auto) 3.18 (1.40-6.50) K/uL Lymph # (Auto) 2.11 (1.20-3.40) K/uL Door # (Auto) 0.73 H (0.11-0.59) K/uL Eos # (Auto) 0.30 (0.00-0.50) K/uL Baso # (Auto) 0.05 (0.00-0.20) K/uL Immature Gran # (Auto) 0.02 (0.01-0.20) K/uL POC Sodium 141 (135-144) mmol/L Sodium 142 (136-145) mmol/L POC Potassium 3.9 (3.3-5.0) mmol/L Potassium 4.1 (3.5-5.1) mmol/L POC Chloride 103 (101-112) mmol/L Chloride 103 (98-107) mmol/L Carbon Dioxide 30 (21-32) mmol/L POC Total CO2 25 (24-31) mmol/L Anion Gap 9 (3-11) POC Anion Gap 18.0 (16-25) mmol/L POC BUN 21 H (7-18) mg/dl BUN 21 (6-23) mg/dl Creatinine 1.64 H (0.6-1.4) mg/dl POC Creatinine 1.7 H (0.6-1.3) mg/dl Est Cr Clr Drug Dosing Not Reportable eGFR 47.59 BUN/Creatinine Ratio 12.8 (10-20) Glucose 152 H (70-99(Fasting)) mg/dl POC Glucose (other) 159 H (70-99) mg/dl Calcium 9.1 (8.6-10.3) mg/dl POC Ioniz Calcium Jorge 1.16 (1.12-1.32) mmol/l Magnesium 2.2 (1.7-2.4) mg/dl Total Bilirubin 0.4 (0.2-1.0) mg/dl AST 27 (13-39) U/L ALT 27 (7-52) U/L Alkaline Phosphatase 78 (34-104) U/L Troponin I High Sens 121.0 H* (0-20) pg/ml Total Protein 7.1 (6.0-8.3) gm/dl Albumin 4.4 (3.4-5.0) gm/dl Globulin 2.7 (2.5-4.0) gm/dl Albumin/Globulin Ratio 1.6 (0.9-2) TSH 3.339 (0.300-4.500) uIu/ml Imaging Data Attestation: I personally reviewed and interpreted this imaging study as follows: Radiologist's Impression: Chest X-Ray 03/28/25 22:15 Exam(s): XR CXR 1 VIEW EXAM: XR Chest, 1 View CLINICAL HISTORY: Reason for exam: Dysrhythmia. TECHNIQUE: Frontal view of the chest. COMPARISON: 11/16/2024 FINDINGS: Lungs: Unremarkable. No consolidation. Pleural space: Unremarkable. No pneumothorax. Heart: Unremarkable. No cardiomegaly. Mediastinum: Unremarkable. Normal mediastinal contour. Bones/joints: Unremarkable. No acute fracture. IMPRESSION: Normal chest x-ray. Electronically signed by: Myron Mitchell MD 03/29/25 01:01 AM MDM Narrative Prior records/ancillary studies reviewed. Triage Nursing notes reviewed. Additional history obtained from family. The patient's history was concerning for palpitations. Differential diagnosis: Etiologies such as premature contractions, electrolyte abnormality, cardiac dysrhythmia, thyroid dysfunction, pulmonary embolism, infection, gastrointestinal, as well as others were entertained. Physical examination: Benign as above. ER treatment provided: Vagal maneuvers, adenosine x 3 2 IV lines were placed, cardioversion pads were placed I-STAT was reviewed and no critical electrolyte abilities Patient was consented to conscious sedation and cardioversion. My attending did do the cardioversion and conscious sedation and I was present to assist. Patient was cardioverted with 200 J and repeat EKG shows normal sinus rhythm. Patient tolerated procedure well. On reassessment the patient felt better. Diagnostic interpretation by me: An order was placed for continuous cardiac monitoring. The monitor shows a rate of 60-100 with a SVT rhythm per my interpretation. Patient had a few runs of V. tach on the credit analysis manager that I did review from the rhythm strip The electrocardiogram was ordered for palpitaions ECG: Poor baseline, ST depression in the lateral leads, no P waves, rate of 182. Impression SVT poor baseline with ST depression in lateral leads independently interpreted by myself EKG ordered after cardioversion EKG: Occasional PVCs, normal sinus, Q waves in inferior leads, ST depression in lateral leads. Impression normal sinus rhythm occasional PVCs, Q waves in inferior leads with persistent ST depressions laterally is unchanged from prior independent turbid by myself The labs Independently Interpreted by myself revealed elevated troponin, no worrisome leukocytosis. Stable electrolytes Imaging studies: Chest x-ray with no acute consolidation, pneumothorax or free air per my independent potation Consultation: A consultation was placed with the hospitalist. The case was discussed and diagnostics were reviewed. The patient was evaluated in the ER for further treatment. This appears to be consistent with SVT requiring cardioversion who also had a few runs of SVT. Patient does not want to be restarted on amiodarone. Patient was medicated as above and cardioverted and did return to normal sinus rhythm. Unfortunately shortly after that he had a few short runs of V. tach. He was reassessed multiple times. He tolerated conscious sedation and cardioversion without difficulties. Medicine was consulted and the case was discussed. He will evaluated for admission. Patient is agreeable to treatment plan of admission. By the evaluation outlined above emergent etiologies such as electrolyte abnormality, thyroid dysfunction, pulmonary embolism, infection, as well as others were deemed relatively unlikely. The pt informed about the findings as listed above. All questions were answered and pleased with the treatment. The chart was completed utilizing [employer] Speech voice recognition software. Grammatical errors, random word insertions, pronoun errors, and incomplete sentences are an occassional consequence of this system due to software limitations, ambient noise, and hardware issues. Any formal questions or concerns about the content, text, or information contained within the body of this dictation should be directly addressed to the physician assistant director of plant operations for clarification. Impression & Plan SVT (supraventricular tachycardia) Discharge Plan Visit Data Chief Complaint: Tachycardia Stated Complaint: TACHY ED Provider: Sergio Kirby ED Midlevel Provider: Myah Fonseca Discharge Problem: SVT (supraventricular tachycardia) Patient Disposition: Admitted As Inpatient Condition: Good Discharge Instructions Interventions: ED Discharge Assessment Last Done: 03/29/25 01:08
--- NOTE | 2025-03-29 00:12 | History & Physical Report ---
Date of Service March 29, 2025 Assessment & Plan (1) SVT (supraventricular tachycardia): (2) Hypertension: (3) Hyperlipidemia: Plan 6-year-old male with history of recurrent SVT status post ablation presenting with SVT requiring DC cardioversion. Question of wide-complex/VT episodes on monitor following cardioversion. #SVTpatient reports increased frequency and duration of SVT over the last several days. He has also been unable to break the rhythm. Patient is currently not on any antiarrhythmic agents Admit to PCU Check 2D echo Cardiology consultation appreciated. #Cardiomyopathypatient appears largely compensated Check 2D echo Continue Jardiance Continue Entresto Cardiology consultation appreciated #Asthma/COPD Continue Trelegy or formulary equivalent Albuterol as needed #Hyperlipidemia Continue Crestor History of Present Illness Chief Complaint: SVT, VT Primary Care Provider: Noe Gallegos DO Josh Payton is a 60-year-old male with history of cardiomyopathy, hypertension, hyperlipidemia, SVT status post multiple ablations presenting SVT. Patient had an ablation performed at [facility] on 12/15/[address] Eckert. He is currently not on any antiarrhythmic agents. no beta- blockershas experienced bradycardia in the past. Since his ablation, patient has had multiple episodes of tachycardia/SVT. His keeps excellent records and reports SVT on February 03, February 27, March 06, March 27 and March 28. These episodes were short-lived and patient was able to break them with vagal maneuvers at home including blowing into a syringe, leg lifts and ice. Last night he was at camp when he felt sudden onset of palpitations. This episode lasted approximately 3-1/2 hours. He went to [facility] and the rhythm converted to sinus on its own while he was on his way to the hospital. He did have a workup there that was largely unremarkable. This evening patient finished dinner. Around 20:25 he sat down to eat some strawberries when he had recurrence of tachycardia and palpitations. He again tried to break the rhythm with vagal maneuvers but was unable to do so. His insisted that he come to the emergency room for further evaluation given the increased frequency and duration of his SVT over the last several days. Patient reports that the episodes feel the same. He denies chest pain, shortness of breath, dizziness, syncope. No report of orthopnea, weight gain or edema. No fevers, chills, abdominal pain, nausea, vomiting, diarrhea. No additional complaints at this time. Upon arrival to the ER patient markedly tachycardic at 200 bpm. Chemical conversion attempted with adenosine 6 mg +12 mg +12 mg IV, unsuccessful. Patient then underwent cardioversion at 200 J with return to sinus rhythm. Upon review of additional strips, concern for wide-complex tachycardia, possible episodes of nonsustained V. tach. Allergies Allergy/AdvReac Type Severity Reaction Status Date / Time aspirin Allergy Severe Shortness Verified 03/03/25 12:54 of Breath codeine Allergy Severe Shortness Verified 03/03/25 12:54 of Breath Penicillins Allergy Severe Shortness Verified 03/03/25 12:54 of Breath Home Medications Medication Instructions Recorded Confirmed Type empagliflozin 10 mg tablet 10 mg PO DAILY #90 tabs 10/02/24 03/28/25 Rx (Jardiance) rosuvastatin 10 mg tablet 10 mg PO QAM #90 tabs 11/20/24 03/28/25 Rx sacubitril 49 mg-valsartan 51 mg 1 tab PO BID #180 tabs 11/24/24 03/28/25 Rx tablet (Entresto) fluticasone furoate 100 1 inh inhalation DAILY #60 ea 12/07/24 03/28/25 Rx mcg-vilanterol 25 mcg/dose inhalation powder (Breo Ellipta) albuterol sulfate 90 mcg/actuation 1 - 2 puff inhalation .EVERY 4-6 03/28/25 03/28/25 History aerosol inhaler (Ventolin HFA) HOURS PRN shortness of breath or wheezing Past Med/Surg History Problem List Acute hyperglycemia (Acute) Non-ST elevation ME (NSTEMI) (Acute) PAU (acute kidney injury) (Acute) Diabetes mellitus Degenerative disc disease, cervical C2 cervical fracture SVT (supraventricular tachycardia) (Acute) Heart failure Abnormal EKG (Acute) SVT (supraventricular tachycardia) (Acute) PAU (acute kidney injury) CAD (coronary artery disease) Symptomatic bradycardia Sinus bradycardia Dyspnea on exertion Cardiomyopathy Abnormal ECG (Acute) Elevated troponin (Acute) SVT (supraventricular tachycardia) (Acute) Basal cell carcinoma S/P excision of skin lesion, follow-up exam Asthma (Acute) Hyperlipidemia (Acute) Lumbar disc disease (Acute) Medical History Hypertension Encounter for pre-operative examination Skin lesion of neck Pre-diabetes HERRERA-inhibitor cough PONV (postoperative nausea and vomiting) Skin lesion of neck Pre-diabetes Hypertension Hyperlipidemia Asthma Surgical History Hx of arthroscopy of left knee Hx of colonoscopy (2017) History of surgery Excision of Left Neck Lesion, 04/02/2024 - Dr. Osborn. Done in clinic under local anesthesia 06/23/24-Removal of left-sided post auricular lesion-Dr. 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 History of back surgery Lumbar History of appendectomy Family History Uncle Coronary heart disease Aunt Coronary heart disease Father Coronary heart disease Diabetes Hypertension Social History Smoking Status: Never smoker Second Hand Exposure: No; Do You Dip or Chew Tobacco: No; Hx Alcohol Use: No Hx Substance Use: No Preferred Language: Maori Communication Ability: Effective Wheat Washer Required: No Beliefs That Will Affect Care: None marital status: Current Living Situation: Spouse current occupational status: employed current occupation: [employer] How many Children do You have: 3 Feels Safe at Home: Yes Childhood Exposure to Second-Hand Smoke: No Diet: regular caffeine: Yes Dental Care, Regularly: No Physical Activity Frequency: Daily Seatbelt Use: always Sunscreen Use: No Assistive Devices: None Review of Systems Review of Systems: All systems reviewed & are unremarkable except as noted in HPI & below Physical Exam Physical Exam: General: patient resting comfortably, NAD, non-toxic in appearance, AA&O x 4 Skin: warm, dry, intact, no rashes or lesions HEENT: NC/AT, PERRL, EOMI, anicteric sclera, conjunctiva without injection, external ear normal to inspection and nontender, nares patent, moist mucus membranes, dentition intact, no oropharyngeal lesions, neck supple, trachea midline, no LAD, no thyromegaly, no JVD Heart: +S1/S2, regular, no m/r/g Lungs: equal air entry bilaterally, no rales/rhonchi/wheezes Abd: +BS, soft, NT/ND, no masses/organomegaly/ascites Ext: warm, 2+ pulses in UE/LE bilaterally, no clubbing/cyanosis or edema Neuro: nonfocal, patient AA&O x 4, speech intact, no facial droop, moving all extremities on command with equal strength 5/5 Results & Data Results & Data Vital Signs (Past 12 Hours) Vital Signs Temp Pulse Resp BP BP Pulse Ox O2 Del Method 03/28/25 23:52 120/69 03/28/25 23:51 75 15 94 Room Air 03/28/25 23:45 76 18 94 Room Air 03/28/25 23:43 117/84 03/28/25 23:40 110/72 03/28/25 23:39 77 16 96 Room Air 03/28/25 23:19 72 18 120/86 93 Room Air 03/28/25 23:14 74 18 121/77 92 Room Air 03/28/25 23:12 76 03/28/25 23:09 81 18 113/83 95 Room Air 03/28/25 23:04 72 16 120/75 99 Room Air 03/28/25 22:59 77 18 125/86 99 Room Air 03/28/25 22:54 77 16 132/74 100 Room Air 03/28/25 22:54 100 Room Air 03/28/25 22:52 134/83 03/28/25 22:51 91 H 13 152/96 H 100 03/28/25 22:50 152/96 H 03/28/25 22:49 91 H 16 157/102 H 100 Non-rebreather 03/28/25 22:48 157/102 H 03/28/25 22:45 193 H 15 141/100 H 100 Non-rebreather 03/28/25 22:45 109 H 03/28/25 22:44 190 H 16 124/105 H 100 Non-rebreather 03/28/25 22:30 189 H 126/85 03/28/25 22:25 184 H 03/28/25 22:21 183 H 22 131/92 97 03/28/25 22:14 36.8 C 200 H 18 115/78 97 Room Air O2 Flow Rate 03/28/25 23:52 03/28/25 23:51 03/28/25 23:45 03/28/25 23:43 03/28/25 23:40 03/28/25 23:39 03/28/25 23:19 03/28/25 23:14 03/28/25 23:12 03/28/25 23:09 03/28/25 23:04 03/28/25 22:59 03/28/25 22:54 03/28/25 22:54 03/28/25 22:52 03/28/25 22:51 03/28/25 22:50 03/28/25 22:49 15 03/28/25 22:48 03/28/25 22:45 15 03/28/25 22:45 03/28/25 22:44 15 03/28/25 22:30 03/28/25 22:25 03/28/25 22:21 03/28/25 22:14 Laboratory Results Laboratory Results WBC 6.39 K/ul (4.8-10.8) 03/28/25 22:24 RBC 4.63 M/uL (4.70-6.10) L 03/28/25 22:24 Hgb 14.7 g/dl (14.0-18.0) 03/28/25 22:24 POC Hgb 15.0 g/dl (14.0-18.0) 03/28/25 22:27 Hct 43.4 % (42.0-52.0) 03/28/25 22: POC Hct 44 % (42-52) 03/28/25 22: MCV 93.7 fL (80.0-100.0) 03/28/25 22:24 MCH 31.7 pg (25.0-34.0) 03/28/25 22:24 MCHC 33.9 g/dL (32.0-36.0) 03/28/25 22:24 RDW Std Deviation 44.6 fL (36.4-46.3) 03/28/25 22:24 RDW Coeff of Afshan 12.9 % (11.5-14.5) 03/28/25 22: Plt Count 188 K/uL (130-400) 03/28/25 22: MPV 9.7 fL (9.4-12.4) 03/28/25 22: Immature Gran % (Auto) 0.3 % 03/28/25 22: Neut % (Auto) 49.8 % 03/28/25 22: Lymph % (Auto) 33.0 % 03/28/25 22: [place] % (Auto) 11.4 % 03/28/25 22: Eos % (Auto) 4.7 % 03/28/25 22: Baso % (Auto) 0.8 % 03/28/25: Neut # (Auto) 3.18 K/uL (1.40-6.50) 03/28/25: Lymph # (Auto) 2.11 K/uL (1.20-3.40) 03/28/25 22: [place] # (Auto) 0.73 K/uL (0.11-0.59) H 03/28/25 22: Eos # (Auto) 0.30 K/uL (0.00-0.50) 03/28/25 22: Baso # (Auto) 0.05 K/uL (0.00-0.20) 03/28/25 22: Immature Gran # (Auto) 0.02 K/uL (0.01-0.20) 03/28/25 22:24 POC Sodium 141 mmol/L (135-144) 03/28/25 22: Sodium 142 mmol/L (136-145) 03/28/25 22:24 POC Potassium 3.9 mmol/L (3.3-5.0) 03/28/25 22: Potassium 4.1 mmol/L (3.5-5.1) 03/28/25 22: POC Chloride 103 mmol/L (101-112) 03/28/25 22: Chloride 103 mmol/L (98-107) 03/28/25 22: Carbon Dioxide 30 mmol/L (21-32) 03/28/25 22:24 POC Total CO2 25 mmol/L (24-31) 03/28/25 22: Anion Gap 9 (3-11) 03/28/25 22: POC Anion Gap 18.0 mmol/L (16-25) 03/28/25 22:27 POC BUN 21 mg/dl (7-18) H 03/28/25 22:27 BUN 21 mg/dl (6-23) 03/28/25 22:24 Creatinine 1.64 mg/dl (0.6-1.4) H 03/28/25 22:24 POC Creatinine 1.7 mg/dl (0.6-1.3) H 03/28/25 22:27 Est Cr Clr Drug Dosing Not Reportable 03/28/25 22:24 eGFR 47.59 03/28/25 22:24 BUN/Creatinine Ratio 12.8 (10-20) 03/28/25 22:24 Glucose 152 mg/dl (70-99(Fasting)) H 03/28/25 22:24 POC Glucose (other) 159 mg/dl (70-99) H 03/28/25 22:27 Calcium 9.1 mg/dl (8.6-10.3) 03/28/25 22:24 POC Ioniz Calcium Jorge 1.16 mmol/l (1.12-1.32) 03/28/25 22:27 Magnesium 2.2 mg/dl (1.7-2.4) 03/28/25 22:24 Total Bilirubin 0.4 mg/dl (0.2-1.0) 03/28/25 22:24 AST 27 U/L (13-39) 03/28/25 22:24 ALT 27 U/L (7-52) 03/28/25 22:24 Alkaline Phosphatase 78 U/L (34-104) 03/28/25 22:24 Troponin I High Sens 121.0 pg/ml (0-20) H* 03/28/25 22:24 Total Protein 7.1 gm/dl (6.0-8.3) 03/28/25 22:24 Albumin 4.4 gm/dl (3.4-5.0) 03/28/25 22:24 Globulin 2.7 gm/dl (2.5-4.0) 03/28/25 22:24 Albumin/Globulin Ratio 1.6 (0.9-2) 03/28/25 22:24 TSH 3.339 uIu/ml (0.300-4.500) 03/28/25 22:24 Impressions Chest X-Ray 03/28/25 22:15 Exam(s): XR CXR 1 VIEW EXAM: XR Chest, 1 View CLINICAL HISTORY: Reason for exam: Dysrhythmia. TECHNIQUE: Frontal view of the chest. COMPARISON: 11/16/2024 FINDINGS: Lungs: Unremarkable. No consolidation. Pleural space: Unremarkable. No pneumothorax. Heart: Unremarkable. No cardiomegaly. Mediastinum: Unremarkable. Normal mediastinal contour. Bones/joints: Unremarkable. No acute fracture. IMPRESSION: Normal chest x-ray. Electronically signed by: Myron Mitchell MD 03/29/25 01:01 AM PG Care Time/CCT Total # of Minutes Spent Total Time Spent with Patient: Total time spent is greater than 50% in coordination of care (as documented) at patient's floor/unit and/or counseling patient: Coding Level of Care Code 63193 INT INP/OBS CARE 3/75MIN Diagnoses SVT (supraventricular tachycardia) I47.10 Hypertension I10 Hyperlipidemia E78.5
--- NOTE | 2025-03-29 01:02 | XRay Report ---
Exam(s): XR CXR 1 VIEW EXAM: XR Chest, 1 View CLINICAL HISTORY: Reason for exam: Dysrhythmia. TECHNIQUE: Frontal view of the chest. COMPARISON: 11/16/2024 FINDINGS: Lungs: Unremarkable. No consolidation. Pleural space: Unremarkable. No pneumothorax. Heart: Unremarkable. No cardiomegaly. Mediastinum: Unremarkable. Normal mediastinal contour. Bones/joints: Unremarkable. No acute fracture. IMPRESSION: Normal chest x-ray. Electronically signed by: Myron Mitchell MD 03/29/25 01:01 AM
[2025-03-29] MEDS ORDERED: ACETAMINOPHEN 325 MG TAB PO PRN (01:08)
--- NOTE | 2025-03-29 02:01 | Emergency Department Note ---
Pre Sedation Assessment Vital Signs Temp Pulse Resp BP BP Pulse Ox O2 Del Method 03/28/25 23:52 120/69 03/28/25 23:51 75 15 94 Room Air 03/28/25 23:45 76 18 94 Room Air 03/28/25 23:43 117/84 03/28/25 23:40 110/72 03/28/25 23:39 77 16 96 Room Air 03/28/25 23:19 72 18 120/86 93 Room Air 03/28/25 23:14 74 18 121/77 92 Room Air 03/28/25 23:12 76 03/28/25 23:09 81 18 113/83 95 Room Air 03/28/25 23:04 72 16 120/75 99 Room Air 03/28/25 22:59 77 18 125/86 99 Room Air 03/28/25 22:54 77 16 132/74 100 Room Air 03/28/25 22:54 100 Room Air 03/28/25 22:52 134/83 03/28/25 22:51 91 H 13 152/96 H 100 03/28/25 22:50 152/96 H 03/28/25 22:49 91 H 16 157/102 H 100 Non-rebreather 03/28/25 22:48 157/102 H 03/28/25 22:45 193 H 15 141/100 H 100 Non-rebreather 03/28/25 22:45 109 H 03/28/25 22:44 190 H 16 124/105 H 100 Non-rebreather 03/28/25 22:30 189 H 126/85 03/28/25 22:25 184 H 03/28/25 22:21 183 H 22 131/92 97 03/28/25 22:14 36.8 C 200 H 18 115/78 97 Room Air O2 Flow Rate 03/28/25 23:52 03/28/25 23:51 03/28/25 23:45 03/28/25 23:43 03/28/25 23:40 03/28/25 23:39 03/28/25 23:19 03/28/25 23:14 03/28/25 23:12 03/28/25 23:09 03/28/25 23:04 03/28/25 22:59 03/28/25 22:54 03/28/25 22:54 03/28/25 22:52 03/28/25 22:51 03/28/25 22:50 03/28/25 22:49 15 03/28/25 22:48 03/28/25 22:45 15 03/28/25 22:45 03/28/25 22:44 15 03/28/25 22:30 03/28/25 22:25 03/28/25 22:21 03/28/25 22:14 Cardiovascular RRR, no murmur, no edema (Tachycardic, regular rhythm) + regular rhythm and + tachycardic Respiratory normal respiratory effort, lungs clear to auscultation Pre-Sedation Airway Assessment Smoking Status: Never smoker Hx Sleep Apnea: No Hx Difficult Intubation: No Short, Thick Neck: No Oral Cavity: + WNL Mallampati Class: II ASA: ASA3 NPO Status Date of Last Intake of Fluids: 03/28/25 Date of Last Intake of Solid Food: 03/28/25 Procedure Planning Contraindications for Sedation: none Current Medications Reviewed: Yes Notes The planned sedation has been discussed with the patient. Informed Consent was obtained. I have identified the patient, determined the appropriateness of sedation and have assessed the patient immediately prior to the procedure. All medicine(s) and interventions are by my order.
--- NOTE | 2025-03-29 02:05 | Emergency Department Note ---
Post Sedation Assessment Vital Signs Temp Pulse Resp BP BP Pulse Ox O2 Del Method 03/28/25 23:52 120/69 03/28/25 23:51 75 15 94 Room Air 03/28/25 23:45 76 18 94 Room Air 03/28/25 23:43 117/84 03/28/25 23:40 110/72 03/28/25 23:39 77 16 96 Room Air 03/28/25 23:19 72 18 120/86 93 Room Air 03/28/25 23:14 74 18 121/77 92 Room Air 03/28/25 23:12 76 03/28/25 23:09 81 18 113/83 95 Room Air 03/28/25 23:04 72 16 120/75 99 Room Air 03/28/25 22:59 77 18 125/86 99 Room Air 03/28/25 22:54 77 16 132/74 100 Room Air 03/28/25 22:54 100 Room Air 03/28/25 22:52 134/83 03/28/25 22:51 91 H 13 152/96 H 100 03/28/25 22:50 152/96 H 03/28/25 22:49 91 H 16 157/102 H 100 Non-rebreather 03/28/25 22:48 157/102 H 03/28/25 22:45 193 H 15 141/100 H 100 Non-rebreather 03/28/25 22:45 109 H 03/28/25 22:44 190 H 16 124/105 H 100 Non-rebreather 03/28/25 22:30 189 H 126/85 03/28/25 22:25 184 H 03/28/25 22:21 183 H 22 131/92 97 03/28/25 22:14 36.8 C 200 H 18 115/78 97 Room Air O2 Flow Rate 03/28/25 23:52 03/28/25 23:51 03/28/25 23:45 03/28/25 23:43 03/28/25 23:40 03/28/25 23:39 03/28/25 23:19 03/28/25 23:14 03/28/25 23:12 03/28/25 23:09 03/28/25 23:04 03/28/25 22:59 03/28/25 22:54 03/28/25 22:54 03/28/25 22:52 03/28/25 22:51 03/28/25 22:50 03/28/25 22:49 15 03/28/25 22:48 03/28/25 22:45 15 03/28/25 22:45 03/28/25 22:44 15 03/28/25 22:30 03/28/25 22:25 03/28/25 22:21 03/28/25 22:14 Recovery Score Activity: Moves 4 extremities Respiration: Deep Breath/Cough Circulation: +/-20% PreAnes Value Consciousness: Fully Awake Oxygen Saturation: > 92% On Room Air Post Anesthesia Score: 10 Post Sedation Plan On clinical assessment, the patient appears to have tolerated the sedation without complications. Patient is recovering as anticipated. Patient will continue to be monitored by nursing and may be discharged when sedation discharge criteria are met per below protocol. Upon Completions of procedure up to 15 minutes continue every 5 minute vital signs and the P.A.R. score; then discharge to a Phase I or Fast Track to Phase II per the following guidelines: * Discharge Patient to appropriate Phase II area if PAR is 8 or greater or return to pre- procedure baseline. The post - procedure orders will be as directed. * If PAR score is less than 8 or not return to pre-procedure baseline then patient will follow Phase I monitoring till PAR is reached for Phase II. The Phase I may be done in procedure room or may call to secure a Phase I area. * If naloxone or flumazenil are used for reversal, hold in Phase I for continued monitoring from when last reversal dose was given for a minimum of 60 minutes or longer pending the nurse and/or physician discretion of patient condition before discharge to Phase II. Please call the Sedation Physician to re-evaluate and complete post-note for discharge to Phase II area. Do NOT discharge from procedure sedation or Phase 1 until post- sedation evaluation note is complete by procedure /sedation MD Sedation Discharge Instructions to be given to the patient at discharge to home. Sedation Data Time Out Team Members Agree on the Following: Correct Patient, Correct Procedure and Allergies Verified Team Agrees: Yes Sedation Times Sedation Start Date: 03/28/25 Sedation Start Time: 22:44 Sedation End Date: 03/28/25 Sedation End Time: 22:49 Total Sedation Time: 5 Procedure Times Procedure Start Time:: 22:45 Procedure End Time: 22:45 Specimens Specimens Obtained: No Specimens: N/A Supervising Physician Co-Signing Physician Notes This is a 60-year-old male with known history of SVT s/p failed ablations presenting to the emergency department for significant tachycardia. Patient was found to be in SVT with rate from 160s to 190s. Blood pressure was stable. Multiple attempts were made at vagal maneuvers as well as adenosine. Patient was unable to be rate controlled. I had an informed consent discussion with the patient and his regarding elective cardioversion. Risk and benefits were discussed extensively. They excepted risk of the procedure and. Proceeded with elective cardioversion. I performed moderate sedation on this patient with 0.15 mg/kg of etomidate. Patient underwent elective cardioversion that was synchronized at 200 J of energy. He tolerated the procedure well. Patient converted to normal sinus rhythm. He had no procedural or sedation complications. Patient returned to his baseline. Patient to be admitted by the hospitalist team given intermittent episodes of nonsustained ventricular tachycardia as well as elevated troponin. The patient was discussed with the hospitalist team and subsequently admitted.
--- NOTE | 2025-03-29 02:08 | Emergency Department Note ---
Impression & Plan SVT (supraventricular tachycardia) ED Provider Note I was consulted by the Advanced Practice Provider, Myah Villa. I performed a substantive portion of the visit. This includes aspects of: History/MDM: This is a 60-year-old male with known history of SVT s/p failed ablations presenting to the emergency department for significant tachycardia. Patient was found to be in SVT with rate from 160s to 190s. Blood pressure was stable. Multiple attempts were made at vagal maneuvers as well as adenosine. Patient was unable to be rate controlled. I had an informed consent discussion with the patient and his regarding elective cardioversion. Risk and benefits were discussed extensively. They excepted risk of the procedure and. Proceeded with elective cardioversion. I performed moderate sedation on this patient with 0.15 mg/kg of etomidate. Patient underwent elective cardioversion that was synchronized at 200 J of energy. He tolerated the procedure well. Patient converted to normal sinus rhythm. He had no procedural or sedation complications. Patient returned to his baseline. Patient to be admitted by the hospitalist team given intermittent episodes of nonsustained ventricular tachycardia as well as elevated troponin. The patient was discussed with the hospitalist team and subsequently admitted. Labs independently interpreted by me revealed no significant leukocytosis or anemia. No significant electrolyte derangements. The patient does have an PAU. Minimal hyperglycemia. Electrolytes are largely normal. Mild elevation in troponin. TSH was normal. CXR independently interpreted by me reveals no evidence of focal consolidation to suggest pna. No large pneumothorax or pleural effusion. Sergio Kirby DO Emergency Medicine Past Med/Surg History Problem List (Updated 03/29/25 @ 00:47 by Myah Fonseca PA-C) Diabetes mellitus Degenerative disc disease, cervical C2 cervical fracture SVT (supraventricular tachycardia) (Acute) Heart failure Abnormal EKG (Acute) SVT (supraventricular tachycardia) (Acute) PAU (acute kidney injury) CAD (coronary artery disease) Symptomatic bradycardia Sinus bradycardia Dyspnea on exertion Cardiomyopathy Abnormal ECG (Acute) Elevated troponin (Acute) SVT (supraventricular tachycardia) (Acute) Basal cell carcinoma S/P excision of skin lesion, follow-up exam Asthma (Acute) Hyperlipidemia (Acute) Lumbar disc disease (Acute) Medical History Hypertension Encounter for pre-operative examination Skin lesion of neck Pre-diabetes HERRERA-inhibitor cough PONV (postoperative nausea and vomiting) Skin lesion of neck Pre-diabetes Hypertension Hyperlipidemia Asthma Surgical History Hx of arthroscopy of left knee Hx of colonoscopy (2017) History of surgery History of tonsillectomy History of testicular surgery History of back surgery History of appendectomy Family History Uncle Coronary heart disease Aunt Coronary heart disease Father Coronary heart disease Diabetes Hypertension Social History Smoking Status: Never smoker Second Hand Exposure: No; Do You Dip or Chew Tobacco: No; Hx Alcohol Use: No Hx Substance Use: No Preferred Language: Irish Communication Ability: Effective Dry Cleaning Checker Required: No Beliefs That Will Affect Care: None marital status: Current Living Situation: Spouse current occupational status: employed current occupation: [employer] How many Children do You have: 3 Feels Safe at Home: Yes Childhood Exposure to Second-Hand Smoke: No Diet: regular caffeine: Yes Dental Care, Regularly: No Physical Activity Frequency: Daily Seatbelt Use: always Sunscreen Use: No Assistive Devices: None Allergies Allergies Allergy/AdvReac Type Severity Reaction Status Date / Time aspirin Allergy Severe Shortness Verified 03/03/25 12:54 of Breath codeine Allergy Severe Shortness Verified 03/03/25 12:54 of Breath Penicillins Allergy Severe Shortness Verified 03/03/25 12:54 of Breath Home Meds Home Medications Medication Instructions Recorded Confirmed albuterol sulfate 90 mcg/actuation 1 - 2 puff inhalation .EVERY 4-6 03/28/25 03/28/25 aerosol inhaler (Ventolin HFA) HOURS PRN shortness of breath or wheezing Previous Rx's Medication Instructions Recorded empagliflozin 10 mg tablet 10 mg PO DAILY #90 tabs 10/02/24 (Jardiance) rosuvastatin 10 mg tablet 10 mg PO QAM #90 tabs 11/20/24 sacubitril 49 mg-valsartan 51 mg 1 tab PO BID #180 tabs 11/24/24 tablet (Entresto) fluticasone furoate 100 1 inh inhalation DAILY #60 ea 12/07/24 mcg-vilanterol 25 mcg/dose inhalation powder (Breo Ellipta) Results & Data (ED) Vital Signs Vital Signs - 24 hr 03/28/25 22:14 03/28/25 22:21 03/28/25 22:25 Temperature 36.8 C Temperature Source Temporal Artery Scan Pulse Rate 200 H 183 H 184 H Pulse Rate from SpO2 Sensor 184 H Respiratory Rate 18 22 Respiratory Effort / Characteristics Non-Labored Spontaneous Respiratory Depth Normal Respiratory Pattern Regular Blood Pressure 115/78 131/92 Blood Pressure [Right Arm] Blood Pressure Mean 90 105 Blood Pressure Position Sitting Pulse Oximetry 97 97 Oxygen Delivery Method Room Air Oxygen Flow Rate Sepsis Recent Fever Within 48 Hours No Sepsis New/Unexplained Change in Mental Status N/A Sepsis Action Taken by Nursing No Action Required End-Tidal CO2 End Tidal CO2 (18-54mmHg) 03/28/25 22:30 03/28/25 22:44 03/28/25 22:45 Temperature Temperature Source Pulse Rate 189 H 190 H 109 H Pulse Rate from SpO2 Sensor 189 H Respiratory Rate 16 Respiratory Effort / Characteristics Respiratory Depth Respiratory Pattern Blood Pressure 126/85 Blood Pressure [Right Arm] 124/105 H Blood Pressure Mean 109 Blood Pressure Position Pulse Oximetry 100 Oxygen Delivery Method Non-rebreather Oxygen Flow Rate 15 Sepsis Recent Fever Within 48 Hours Sepsis New/Unexplained Change in Mental Status Sepsis Action Taken by Nursing End-Tidal CO2 End Tidal CO2 (18-54mmHg) 37 03/28/25 22:45 03/28/25 22:48 03/28/25 22:49 Temperature Temperature Source Pulse Rate 193 H 91 H Pulse Rate from SpO2 Sensor Respiratory Rate 15 16 Respiratory Effort / Characteristics Respiratory Depth Respiratory Pattern Blood Pressure 157/102 H Blood Pressure [Right Arm] 141/100 H 157/102 H Blood Pressure Mean 120 Blood Pressure Position Pulse Oximetry 100 100 Oxygen Delivery Method Non-rebreather Non-rebreather Oxygen Flow Rate 15 15 Sepsis Recent Fever Within 48 Hours Sepsis New/Unexplained Change in Mental Status Sepsis Action Taken by Nursing End-Tidal CO2 End Tidal CO2 (18-54mmHg) 38 42 03/28/25 22:50 03/28/25 22:51 03/28/25 22:52 Temperature Temperature Source Pulse Rate 91 H Pulse Rate from SpO2 Sensor 89 Respiratory Rate 13 Respiratory Effort / Characteristics Respiratory Depth Respiratory Pattern Blood Pressure 152/96 H 152/96 H 134/83 Blood Pressure [Right Arm] Blood Pressure Mean 112 114 102 Blood Pressure Position Pulse Oximetry 100 Oxygen Delivery Method Oxygen Flow Rate Sepsis Recent Fever Within 48 Hours Sepsis New/Unexplained Change in Mental Status Sepsis Action Taken by Nursing End-Tidal CO2 40 End Tidal CO2 (18-54mmHg) 03/28/25 22:54 03/28/25 22:54 03/28/25 22:59 Temperature Temperature Source Pulse Rate 77 77 Pulse Rate from SpO2 Sensor Respiratory Rate 16 18 Respiratory Effort / Characteristics Respiratory Depth Respiratory Pattern Blood Pressure Blood Pressure [Right Arm] 132/74 125/86 Blood Pressure Mean Blood Pressure Position Pulse Oximetry 100 100 99 Oxygen Delivery Method Room Air Room Air Room Air Oxygen Flow Rate Sepsis Recent Fever Within 48 Hours Sepsis New/Unexplained Change in Mental Status Sepsis Action Taken by Nursing End-Tidal CO2 End Tidal CO2 (18-54mmHg) 42 44 03/28/25 23:04 03/28/25 23:09 03/28/25 23:12 Temperature Temperature Source Pulse Rate 72 81 76 Pulse Rate from SpO2 Sensor Respiratory Rate 16 18 Respiratory Effort / Characteristics Respiratory Depth Respiratory Pattern Blood Pressure Blood Pressure [Right Arm] 120/75 113/83 Blood Pressure Mean Blood Pressure Position Pulse Oximetry 99 95 Oxygen Delivery Method Room Air Room Air Oxygen Flow Rate Sepsis Recent Fever Within 48 Hours Sepsis New/Unexplained Change in Mental Status Sepsis Action Taken by Nursing End-Tidal CO2 End Tidal CO2 (18-54mmHg) 40 40 03/28/25 23:14 03/28/25 23:19 03/28/25 23:39 Temperature Temperature Source Pulse Rate 74 72 77 Pulse Rate from SpO2 Sensor 78 Respiratory Rate 18 18 16 Respiratory Effort / Characteristics Respiratory Depth Respiratory Pattern Blood Pressure Blood Pressure [Right Arm] 121/77 120/86 Blood Pressure Mean Blood Pressure Position Pulse Oximetry 92 93 96 Oxygen Delivery Method Room Air Room Air Room Air Oxygen Flow Rate Sepsis Recent Fever Within 48 Hours Sepsis New/Unexplained Change in Mental Status Sepsis Action Taken by Nursing End-Tidal CO2 45 End Tidal CO2 (18-54mmHg) 41 44 03/28/25 23:40 03/28/25 23:43 03/28/25 23:45 Temperature Temperature Source Pulse Rate 76 Pulse Rate from SpO2 Sensor 68 Respiratory Rate 18 Respiratory Effort / Characteristics Respiratory Depth Respiratory Pattern Blood Pressure 110/72 117/84 Blood Pressure [Right Arm] Blood Pressure Mean 83 93 Blood Pressure Position Pulse Oximetry 94 Oxygen Delivery Method Room Air Oxygen Flow Rate Sepsis Recent Fever Within 48 Hours Sepsis New/Unexplained Change in Mental Status Sepsis Action Taken by Nursing End-Tidal CO2 44 End Tidal CO2 (18-54mmHg) 03/28/25 23:51 03/28/25 23:52 Temperature Temperature Source Pulse Rate 75 Pulse Rate from SpO2 Sensor 76 Respiratory Rate 15 Respiratory Effort / Characteristics Respiratory Depth Respiratory Pattern Blood Pressure 120/69 Blood Pressure [Right Arm] Blood Pressure Mean 81 Blood Pressure Position Pulse Oximetry 94 Oxygen Delivery Method Room Air Oxygen Flow Rate Sepsis Recent Fever Within 48 Hours Sepsis New/Unexplained Change in Mental Status Sepsis Action Taken by Nursing End-Tidal CO2 44 End Tidal CO2 (18-54mmHg) Laboratory Data 03/28/25 22:24 03/28/25 22:24 Lab Results 03/28/25 03/28/25 Range/Units 22:24 22:27 WBC 6.39 (4.8-10.8) K/ul RBC 4.63 L (4.70-6.10) M/uL Hgb 14.7 (14.0-18.0) g/dl POC Hgb 15.0 (14.0-18.0) g/dl Hct 43.4 (42.0-52.0) % POC Hct 44 (42-52) % MCV 93.7 (80.0-100.0) fL MCH 31.7 (25.0-34.0) pg MCHC 33.9 (32.0-36.0) g/dL RDW Std Deviation 44.6 (36.4-46.3) fL RDW Coeff of Afshan 12.9 (11.5-14.5) % Plt Count 188 (130-400) K/uL MPV 9.7 (9.4-12.4) fL Immature Gran % (Auto) 0.3 % Neut % (Auto) 49.8 % Lymph % (Auto) 33.0 % Merrick % (Auto) 11.4 % Eos % (Auto) 4.7 % Baso % (Auto) 0.8 % Neut # (Auto) 3.18 (1.40-6.50) K/uL Lymph # (Auto) 2.11 (1.20-3.40) K/uL Merrick # (Auto) 0.73 H (0.11-0.59) K/uL Eos # (Auto) 0.30 (0.00-0.50) K/uL Baso # (Auto) 0.05 (0.00-0.20) K/uL Immature Gran # (Auto) 0.02 (0.01-0.20) K/uL POC Sodium 141 (135-144) mmol/L Sodium 142 (136-145) mmol/L POC Potassium 3.9 (3.3-5.0) mmol/L Potassium 4.1 (3.5-5.1) mmol/L POC Chloride 103 (101-112) mmol/L Chloride 103 (98-107) mmol/L Carbon Dioxide 30 (21-32) mmol/L POC Total CO2 25 (24-31) mmol/L Anion Gap 9 (3-11) POC Anion Gap 18.0 (16-25) mmol/L POC BUN 21 H (7-18) mg/dl BUN 21 (6-23) mg/dl Creatinine 1.64 H (0.6-1.4) mg/dl POC Creatinine 1.7 H (0.6-1.3) mg/dl Est Cr Clr Drug Dosing Not Reportable eGFR 47.59 BUN/Creatinine Ratio 12.8 (10-20) Glucose 152 H (70-99(Fasting)) mg/dl POC Glucose (other) 159 H (70-99) mg/dl Calcium 9.1 (8.6-10.3) mg/dl POC Ioniz Calcium Jorge 1.16 (1.12-1.32) mmol/l Magnesium 2.2 (1.7-2.4) mg/dl Total Bilirubin 0.4 (0.2-1.0) mg/dl AST 27 (13-39) U/L ALT 27 (7-52) U/L Alkaline Phosphatase 78 (34-104) U/L Troponin I High Sens 121.0 H* (0-20) pg/ml Total Protein 7.1 (6.0-8.3) gm/dl Albumin 4.4 (3.4-5.0) gm/dl Globulin 2.7 (2.5-4.0) gm/dl Albumin/Globulin Ratio 1.6 (0.9-2) TSH 3.339 (0.300-4.500) uIu/ml Administered Medications Discontinued Medications Adenosine (Adenosine Iv Soln 3 Mg/Ml 2 Ml Vial) Confirm Administered Dose 18 mg IV .STITA Software-MED ONE Stop: 03/28/25 22:16 Last Admin: 03/28/25 22:59 Dose: Not Given Documented By: JM Adenosine (Adenosine Iv Soln 3 Mg/Ml 2 Ml Vial) 6 mg IV NOW STA Stop: 03/28/25 22:16 Last Admin: 03/28/25 22:22 Dose: 6 mg Documented By: JM Adenosine (Adenosine Iv Soln 3 Mg/Ml 2 Ml Vial) 12 mg IV NOW STA Stop: 03/28/25 22:16 Last Admin: 03/28/25 22:28 Dose: 12 mg Documented By: JM Adenosine (Adenosine Iv Soln 3 Mg/Ml 2 Ml Vial) 12 mg IV NOW STA Stop: 03/28/25 22:26 Last Admin: 03/28/25 22:32 Dose: 12 mg Documented By: JM Etomidate (Etomidate 2 Mg/Ml 20 Ml Vial) Confirm Administered Dose 40 mg IV .STK-MED ONE Stop: 03/28/25 22:33 Last Admin: 03/28/25 22:51 Dose: Not Given Documented By: Etomidate (Etomidate 2 Mg/Ml 20 Ml Vial) 15 mg IV NOW ONE Stop: 03/28/25 22:36 Last Admin: 03/28/25 22:44 Dose: 15 mg Documented By: Imaging Data Radiologist's Impression: Chest X-Ray 03/28/25 22:15 Exam(s): XR CXR 1 VIEW EXAM: XR Chest, 1 View CLINICAL HISTORY: Reason for exam: Dysrhythmia. TECHNIQUE: Frontal view of the chest. COMPARISON: 11/16/2024 FINDINGS: Lungs: Unremarkable. No consolidation. Pleural space: Unremarkable. No pneumothorax. Heart: Unremarkable. No cardiomegaly. Mediastinum: Unremarkable. Normal mediastinal contour. Bones/joints: Unremarkable. No acute fracture. IMPRESSION: Normal chest x-ray. Electronically signed by: Myron Mitchell MD 03/29/25 01:01 AM Discharge Plan Visit Data Chief Complaint: Tachycardia Stated Complaint: TACHY ED Provider: Sergio Kirby ED Midlevel Provider: Myah Fonseca Discharge Problem: SVT (supraventricular tachycardia) Patient Disposition: Admitted As Inpatient Condition: Good Discharge Instructions Interventions: ED Discharge Assessment Last Done: 03/29/25 01:08
--- NOTE | 2025-03-29 02:18 | Emergency Department Note ---
History of Present Illness General Chief complaint: Tachycardia Stated complaint: TACHY Time Seen by Provider: 03/28/25 22:12 History of Present Illness This is a 60-year-old male with known history of SVT s/p failed ablations presenting to the emergency department for significant tachycardia. Home Medications Medication Instructions Recorded Confirmed Type empagliflozin 10 mg tablet 10 mg PO DAILY #90 tabs 10/02/24 03/28/25 Rx (Jardiance) rosuvastatin 10 mg tablet 10 mg PO QAM #90 tabs 11/20/24 03/28/25 Rx sacubitril 49 mg-valsartan 51 mg 1 tab PO BID #180 tabs 11/24/24 03/28/25 Rx tablet (Entresto) fluticasone furoate 100 1 inh inhalation DAILY #60 ea 12/07/24 03/28/25 Rx mcg-vilanterol 25 mcg/dose inhalation powder (Breo Ellipta) albuterol sulfate 90 mcg/actuation 1 - 2 puff inhalation .EVERY 4-6 03/28/25 03/28/25 History aerosol inhaler (Ventolin HFA) HOURS PRN shortness of breath or wheezing Allergies Allergy/AdvReac Type Severity Reaction Status Date / Time aspirin Allergy Severe Shortness Verified 03/03/25 12:54 of Breath codeine Allergy Severe Shortness Verified 03/03/25 12:54 of Breath Penicillins Allergy Severe Shortness Verified 03/03/25 12:54 of Breath Past Med/Surg History Problem List (Updated 03/29/25 @ 02:18 by Sergio Kirby DO) Acute hyperglycemia (Acute) Non-ST elevation [place] (NSTEMI) (Acute) PAU (acute kidney injury) (Acute) Diabetes mellitus Degenerative disc disease, cervical C2 cervical fracture SVT (supraventricular tachycardia) (Acute) Heart failure Abnormal EKG (Acute) SVT (supraventricular tachycardia) (Acute) PAU (acute kidney injury) CAD (coronary artery disease) Symptomatic bradycardia Sinus bradycardia Dyspnea on exertion Cardiomyopathy Abnormal ECG (Acute) Elevated troponin (Acute) SVT (supraventricular tachycardia) (Acute) Basal cell carcinoma S/P excision of skin lesion, follow-up exam Asthma (Acute) Hyperlipidemia (Acute) Lumbar disc disease (Acute) Medical History Hypertension Encounter for pre-operative examination Skin lesion of neck Pre-diabetes HERRERA-inhibitor cough PONV (postoperative nausea and vomiting) Skin lesion of neck Pre-diabetes Hypertension Hyperlipidemia Asthma Surgical History Hx of arthroscopy of left knee Hx of colonoscopy (2017) History of surgery Excision of Left Neck Lesion, 04/02/2024 - Dr. Osborn. Done in clinic under local anesthesia 06/23/24-Removal of left-sided post auricular lesion-Dr. 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 Required: No Beliefs That Will Affect Care: None marital status: Current Living Situation: Spouse current occupational status: employed current occupation: [email or web address] How many Children do You have: 3 Feels Safe at Home: Yes Childhood Exposure to Second-Hand Smoke: No Diet: regular caffeine: Yes Dental Care, Regularly: No Physical Activity Frequency: Daily Seatbelt Use: always Sunscreen Use: No Assistive Devices: None Physical Exam Vital Signs Vital Signs - 24 hr 03/28/25 22:14 03/28/25 22:21 03/28/25 22:25 Temperature 36.8 C Temperature Source Temporal Artery Scan Pulse Rate 200 H 183 H 184 H Pulse Rate from SpO2 Sensor 184 H Respiratory Rate 18 22 Respiratory Effort / Characteristics Non-Labored Spontaneous Respiratory Depth Normal Respiratory Pattern Regular Blood Pressure 115/78 131/92 Blood Pressure [Right Arm] Blood Pressure Mean 90 105 Blood Pressure Position Sitting Pulse Oximetry 97 97 Oxygen Delivery Method Room Air Oxygen Flow Rate Sepsis Recent Fever Within 48 Hours No Sepsis New/Unexplained Change in Mental Status N/A Sepsis Action Taken by Nursing No Action Required End-Tidal CO2 End Tidal CO2 (18-54mmHg) 03/28/25 22:30 03/28/25 22:44 03/28/25 22:45 Temperature Temperature Source Pulse Rate 189 H 190 H 109 H Pulse Rate from SpO2 Sensor 189 H Respiratory Rate 16 Respiratory Effort / Characteristics Respiratory Depth Respiratory Pattern Blood Pressure 126/85 Blood Pressure [Right Arm] 124/105 H Blood Pressure Mean 109 Blood Pressure Position Pulse Oximetry 100 Oxygen Delivery Method Non-rebreather Oxygen Flow Rate 15 Sepsis Recent Fever Within 48 Hours Sepsis New/Unexplained Change in Mental Status Sepsis Action Taken by Nursing End-Tidal CO2 End Tidal CO2 (18-54mmHg) 37 03/28/25 22:45 03/28/25 22:48 03/28/25 22:49 Temperature Temperature Source Pulse Rate 193 H 91 H Pulse Rate from SpO2 Sensor Respiratory Rate 15 16 Respiratory Effort / Characteristics Respiratory Depth Respiratory Pattern Blood Pressure 157/102 H Blood Pressure [Right Arm] 141/100 H 157/102 H Blood Pressure Mean 120 Blood Pressure Position Pulse Oximetry 100 100 Oxygen Delivery Method Non-rebreather Non-rebreather Oxygen Flow Rate 15 15 Sepsis Recent Fever Within 48 Hours Sepsis New/Unexplained Change in Mental Status Sepsis Action Taken by Nursing End-Tidal CO2 End Tidal CO2 (18-54mmHg) 38 42 03/28/25 22:50 03/28/25 22:51 03/28/25 22:52 Temperature Temperature Source Pulse Rate 91 H Pulse Rate from SpO2 Sensor 89 Respiratory Rate 13 Respiratory Effort / Characteristics Respiratory Depth Respiratory Pattern Blood Pressure 152/96 H 152/96 H 134/83 Blood Pressure [Right Arm] Blood Pressure Mean 112 114 102 Blood Pressure Position Pulse Oximetry 100 Oxygen Delivery Method Oxygen Flow Rate Sepsis Recent Fever Within 48 Hours Sepsis New/Unexplained Change in Mental Status Sepsis Action Taken by Nursing End-Tidal CO2 40 End Tidal CO2 (18-54mmHg) 03/28/25 22:54 03/28/25 22:54 03/28/25 22:59 Temperature Temperature Source Pulse Rate 77 77 Pulse Rate from SpO2 Sensor Respiratory Rate 16 18 Respiratory Effort / Characteristics Respiratory Depth Respiratory Pattern Blood Pressure Blood Pressure [Right Arm] 132/74 125/86 Blood Pressure Mean Blood Pressure Position Pulse Oximetry 100 100 99 Oxygen Delivery Method Room Air Room Air Room Air Oxygen Flow Rate Sepsis Recent Fever Within 48 Hours Sepsis New/Unexplained Change in Mental Status Sepsis Action Taken by Nursing End-Tidal CO2 End Tidal CO2 (18-54mmHg) 42 44 03/28/25 23:04 03/28/25 23:09 03/28/25 23:12 Temperature Temperature Source Pulse Rate 72 81 76 Pulse Rate from SpO2 Sensor Respiratory Rate 16 18 Respiratory Effort / Characteristics Respiratory Depth Respiratory Pattern Blood Pressure Blood Pressure [Right Arm] 120/75 113/83 Blood Pressure Mean Blood Pressure Position Pulse Oximetry 99 95 Oxygen Delivery Method Room Air Room Air Oxygen Flow Rate Sepsis Recent Fever Within 48 Hours Sepsis New/Unexplained Change in Mental Status Sepsis Action Taken by Nursing End-Tidal CO2 End Tidal CO2 (18-54mmHg) 40 40 03/28/25 23:14 03/28/25 23:19 03/28/25 23:39 Temperature Temperature Source Pulse Rate 74 72 77 Pulse Rate from SpO2 Sensor 78 Respiratory Rate 18 18 16 Respiratory Effort / Characteristics Respiratory Depth Respiratory Pattern Blood Pressure Blood Pressure [Right Arm] 121/77 120/86 Blood Pressure Mean Blood Pressure Position Pulse Oximetry 92 93 96 Oxygen Delivery Method Room Air Room Air Room Air Oxygen Flow Rate Sepsis Recent Fever Within 48 Hours Sepsis New/Unexplained Change in Mental Status Sepsis Action Taken by Nursing End-Tidal CO2 45 End Tidal CO2 (18-54mmHg) 41 44 03/28/25 23:40 03/28/25 23:43 03/28/25 23:45 Temperature Temperature Source Pulse Rate 76 Pulse Rate from SpO2 Sensor 68 Respiratory Rate 18 Respiratory Effort / Characteristics Respiratory Depth Respiratory Pattern Blood Pressure 110/72 117/84 Blood Pressure [Right Arm] Blood Pressure Mean 83 93 Blood Pressure Position Pulse Oximetry 94 Oxygen Delivery Method Room Air Oxygen Flow Rate Sepsis Recent Fever Within 48 Hours Sepsis New/Unexplained Change in Mental Status Sepsis Action Taken by Nursing End-Tidal CO2 44 End Tidal CO2 (18-54mmHg) 03/28/25 23:51 03/28/25 23:52 Temperature Temperature Source Pulse Rate 75 Pulse Rate from SpO2 Sensor 76 Respiratory Rate 15 Respiratory Effort / Characteristics Respiratory Depth Respiratory Pattern Blood Pressure 120/69 Blood Pressure [Right Arm] Blood Pressure Mean 81 Blood Pressure Position Pulse Oximetry 94 Oxygen Delivery Method Room Air Oxygen Flow Rate Sepsis Recent Fever Within 48 Hours Sepsis New/Unexplained Change in Mental Status Sepsis Action Taken by Nursing End-Tidal CO2 44 End Tidal CO2 (18-54mmHg) GENERAL: Alert, well developed, well nourished, no acute distress HEAD: Normocephalic, atraumatic EYES: EOM's intact, sclera anicteric, conjunctiva clear OROPHARYNX: Airway patent and mucous membranes moist LUNGS: No respiratory distress, normal respiratory rate and effort HEART: Well perfused, tachycardic, regular rhythm ABDOMEN: Abdomen non-distended SKIN: Normal color, dry EXTREMITIES: No gross deformities, no edema NEURO: Alert, oriented x3, appropriate for age, moves all four extremities, normal speech Procedures Procedural Sedation Presedation Evaluation: Painful procedure; DCCV ASA Class: III Preparation: monitor and storage bin tender applied, pulse oximeter, capnometry used, supplemental O2 applied, suction/airway equipment at bedside and IV secured IV Etomidate dose (mg): 15 Patient Tolerated Procedure: well and no complications Complications: none Course Administered Medications Discontinued Medications Adenosine (Adenosine Iv Soln 3 Mg/Ml 2 Ml Vial) Confirm Administered Dose 18 mg IV .STK-MED ONE Stop: 03/28/25 22:16 Last Admin: 03/28/25 22:59 Dose: Not Given Documented By: JM Adenosine (Adenosine Iv Soln 3 Mg/Ml 2 Ml Vial) 6 mg IV NOW STA Stop: 03/28/25 22:16 Last Admin: 03/28/25 22:22 Dose: 6 mg Documented By: JM Adenosine (Adenosine Iv Soln 3 Mg/Ml 2 Ml Vial) 12 mg IV NOW STA Stop: 03/28/25 22:16 Last Admin: 03/28/25 22:28 Dose: 12 mg Documented By: JM Adenosine (Adenosine Iv Soln 3 Mg/Ml 2 Ml Vial) 12 mg IV NOW STA Stop: 03/28/25 22:26 Last Admin: 03/28/25 22:32 Dose: 12 mg Documented By: JM Etomidate (Etomidate 2 Mg/Ml 20 Ml Vial) Confirm Administered Dose 40 mg IV .STK-MED ONE Stop: 03/28/25 22:33 Last Admin: 03/28/25 22:51 Dose: Not Given Documented By: Etomidate (Etomidate 2 Mg/Ml 20 Ml Vial) 15 mg IV NOW ONE Stop: 03/28/25 22:36 Last Admin: 03/28/25 22:44 Dose: 15 mg Documented By: Medical Decision Making Differential Diagnosis ACS, stable vs unstable angina, dysrhythmia, viral URI, pneumonia, pericarditis, pneumothorax, costochondritis, MSK strain, PE, hypertensive emergency, psychological causes, esophageal reflux, gastritis Laboratory Data 03/28/25 22:24 03/28/25 22:24 Lab Results 03/28/25 03/28/25 Range/Units 22:24 22:27 WBC 6.39 (4.8-10.8) K/ul RBC 4.63 L (4.70-6.10) M/uL Hgb 14.7 (14.0-18.0) g/dl POC Hgb 15.0 (14.0-18.0) g/dl Hct 43.4 (42.0-52.0) % POC Hct 44 (42-52) % MCV 93.7 (80.0-100.0) fL MCH 31.7 (25.0-34.0) pg MCHC 33.9 (32.0-36.0) g/dL RDW Std Deviation 44.6 (36.4-46.3) fL RDW Coeff of Afshan 12.9 (11.5-14.5) % Plt Count 188 (130-400) K/uL MPV 9.7 (9.4-12.4) fL Immature Gran % (Auto) 0.3 % Neut % (Auto) 49.8 % Lymph % (Auto) 33.0 % [place] % (Auto) 11.4 % Eos % (Auto) 4.7 % Baso % (Auto) 0.8 % Neut # (Auto) 3.18 (1.40-6.50) K/uL Lymph # (Auto) 2.11 (1.20-3.40) K/uL [place] # (Auto) 0.73 H (0.11-0.59) K/uL Eos # (Auto) 0.30 (0.00-0.50) K/uL Baso # (Auto) 0.05 (0.00-0.20) K/uL Immature Gran # (Auto) 0.02 (0.01-0.20) K/uL POC Sodium 141 (135-144) mmol/L Sodium 142 (136-145) mmol/L POC Potassium 3.9 (3.3-5.0) mmol/L Potassium 4.1 (3.5-5.1) mmol/L POC Chloride 103 (101-112) mmol/L Chloride 103 (98-107) mmol/L Carbon Dioxide 30 (21-32) mmol/L POC Total CO2 25 (24-31) mmol/L Anion Gap 9 (3-11) POC Anion Gap 18.0 (16-25) mmol/L POC BUN 21 H (7-18) mg/dl BUN 21 (6-23) mg/dl Creatinine 1.64 H (0.6-1.4) mg/dl POC Creatinine 1.7 H (0.6-1.3) mg/dl Est Cr Clr Drug Dosing Not Reportable eGFR 47.59 BUN/Creatinine Ratio 12.8 (10-20) Glucose 152 H (70-99(Fasting)) mg/dl POC Glucose (other) 159 H (70-99) mg/dl Calcium 9.1 (8.6-10.3) mg/dl POC Ioniz Calcium Jorge 1.16 (1.12-1.32) mmol/l Magnesium 2.2 (1.7-2.4) mg/dl Total Bilirubin 0.4 (0.2-1.0) mg/dl AST 27 (13-39) U/L ALT 27 (7-52) U/L Alkaline Phosphatase 78 (34-104) U/L Troponin I High Sens 121.0 H* (0-20) pg/ml Total Protein 7.1 (6.0-8.3) gm/dl Albumin 4.4 (3.4-5.0) gm/dl Globulin 2.7 (2.5-4.0) gm/dl Albumin/Globulin Ratio 1.6 (0.9-2) TSH 3.339 (0.300-4.500) uIu/ml Imaging Data Radiologist's Impression: Chest X-Ray 03/28/25 22:15 Exam(s): XR CXR 1 VIEW EXAM: XR Chest, 1 View CLINICAL HISTORY: Reason for exam: Dysrhythmia. TECHNIQUE: Frontal view of the chest. COMPARISON: 11/16/2024 FINDINGS: Lungs: Unremarkable. No consolidation. Pleural space: Unremarkable. No pneumothorax. Heart: Unremarkable. No cardiomegaly. Mediastinum: Unremarkable. Normal mediastinal contour. Bones/joints: Unremarkable. No acute fracture. IMPRESSION: Normal chest x-ray. Electronically signed by: Myron Mitchell MD 03/29/25 01:01 AM LILIANA Narrative I was consulted by the Advanced Practice Provider, Myah Villa. I performed a substantive portion of the visit. This includes aspects of: History/MDM: This is a 60-year-old male with known history of SVT s/p failed ablations presenting to the emergency department for significant tachycardia. Patient was found to be in SVT with rate from 160s to 190s. Blood pressure was stable. Multiple attempts were made at vagal maneuvers as well as adenosine. Patient was unable to be rate controlled. I had an informed consent discussion with the patient and his regarding elective cardioversion. Risk and benefits were discussed extensively. They excepted risk of the procedure and. Proceeded with elective cardioversion. I performed moderate sedation on this patient with 0.15 mg/kg of etomidate. Patient underwent elective cardioversion that was synchronized at 200 J of energy. He tolerated the procedure well. Patient converted to normal sinus rhythm. He had no procedural or sedation complications. Patient returned to his baseline. Patient to be admitted by the hospitalist team given intermittent episodes of nonsustained ventricular tachycardia as well as elevated troponin. The patient was discussed with the hospitalist team and subsequently admitted. Laboratory studies independently interpreted by me reveal NSTEMI present with elevated troponin. PAU from baseline. Mild hyperglycemia. No significant electrolyte derangements. No significant leukocytosis or anemia. CXR independently interpreted by me reveals no evidence of focal consolidation to suggest pna. No large pneumothorax or pleural effusion. Initial EKG independently interpreted by me reveals narrow complex tachycardia at a rate of 182 bpm. Rate dependent depressions noted in the leads. There is a poor baseline on this EKG. Otherwise there is no evidence of ST segment changes to suggest STEMI. Repeat EKG following elective cardioversion. Appears to be a normal sinus rhythm with frequent PVCs. Ventricular rate is [address] no significant ST segment changes to suggest STEMI. There are some lateral depressions. Diagnoses for this visit include SVT with NSTEMI, PAU and acute hyperglycemia. Sergio Kirby DO Emergency Medicine Impression & Plan SVT (supraventricular tachycardia), PAU (acute kidney injury), Non-ST elevation [place] (NSTEMI), Acute hyperglycemia Discharge Plan Visit Data Chief Complaint: Tachycardia Stated Complaint: TACHY ED Provider: Sergio Kirby ED Midlevel Provider: Myah Fonseca Discharge Problem: SVT (supraventricular tachycardia), PAU (acute kidney injury), Non-ST elevation AZ (NSTEMI), Acute hyperglycemia Patient Disposition: Admitted As Inpatient Condition: Good Discharge Instructions Interventions: ED Discharge Assessment Last Done: 03/29/25 01:08
[2025-03-29 05:30] VITALS: TEMP 97.5
[2025-03-29] MEDS: EMPAGLIFLOZIN 10 MG TAB PO SCH (08:35)
[2025-03-29] MEDS: VALSARTAN/SACUBITRIL 51/49 MG TAB PO SCH (08:35)
[2025-03-29] MEDS: ROSUVASTATIN CALCIUM 10 MG TAB PO SCH (08:36)
[2025-03-29] MEDS: FLUTICASONE/VILANTEROL 100/25MCG 14 PUFFS/INHALER INH SCH (08:36)
--- NOTE | 2025-03-29 09:24 | XCELERA ---
[id number] \\[id number]
--- NOTE | 2025-03-29 11:23 | Cardiology Consultation ---
Date of Consultation March 29, 2025 Assessment & Plan (1) SVT (supraventricular tachycardia): -Has had recurrent and prolonged episodes of his SVT. -Case discussed with Dr. Bird. -He suggest restarting amiodarone (normal AST, ALT, and TSH) until he can be evaluated for another ablation. -Will make arrangements for him to meet with Dr. Carmina Eckert, pilot steam yacht, at [facility]. (2) CAD (coronary artery disease): -Nonobstructive disease identified at cardiac cath in August (40% D1 stenosis). (3) Cardiomyopathy: -Nonischemic, mildly dilated cardiomyopathy. -LVEF stable at 35 to 40%. History of Present Illness Attending Physician: Carmina Oates MD History of Present Illness Mr. Payton is a 60-year-old male admitted last evening because of a refractory SVT. This consultation was ordered to assist in his cardiac management. Of note, the patient follows with Drs. Longoria and Marge. The patient's recent history began on the day of presentation when he experienced a 3-1/2-hour episode of his supraventricular tachycardia. He presented to the [facility] where he spontaneously converted back to sinus rhythm. However, at 8:25 PM, the patient had a recurrence of his SVT. He presented to our emergency room and was given 2 doses of adenosine which did not successfully converted him to sinus rhythm. He then received a electrical cardioversion of 200 J which did convert him to sinus rhythm. There were several brief episodes of nonsustained ventricular tachycardia following the cardioversion. The patient underwent a radiofrequency ablation with Dr. Bird on September 03, 2024. He did experience a recurrence of his SVT, therefore, was referred to [facility]. He underwent a second radiofrequency ablation with Dr. Carmina Eckert on December 15, 2024. The patient has had 5 episodes of his SVT since February 03. He does carry a history of nonobstructive coronary artery disease with a 40% D1 stenosis identified at catheterization in August. He also has a history of a nonischemic, dilated cardiomyopathy with ejection fraction of 35 to 40% on echocardiogram performed in January. Currently, patient is resting comfortably in bed and without complaints. Past medical and surgical history 1. Nonobstructive coronary artery omsdyrd28% D1, August 2024 2. Hypertension 3. Hypercholesterolemia 4. Paroxysmal SVTsee above 5. Nonischemic, dilated [id number] to 40%, January 2025, March 2025 6. Diabetes mellitus 7. Asthma 8. C2 fracture 9. Lumbar disc disease 10. Basal cell carcinoma excision 11. Appendectomy 12. 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 Allergies Allergy/AdvReac Type Severity Reaction Status Date / Time aspirin Allergy Severe Shortness Verified 03/03/25 12:54 of Breath codeine Allergy Severe Shortness Verified 03/03/25 12:54 of Breath Penicillins Allergy Severe Shortness Verified 03/03/25 12:54 of Breath Home Medications Medication Instructions Recorded Confirmed Type empagliflozin 10 mg tablet 10 mg PO DAILY #90 tabs 10/02/24 03/28/25 Rx (Jardiance) rosuvastatin 10 mg tablet 10 mg PO QAM #90 tabs 11/20/24 03/28/25 Rx sacubitril 49 mg-valsartan 51 mg 1 tab PO BID #180 tabs 11/24/24 03/28/25 Rx tablet (Entresto) fluticasone furoate 100 1 inh inhalation DAILY #60 ea 12/07/24 03/28/25 Rx mcg-vilanterol 25 mcg/dose inhalation powder (Breo Ellipta) albuterol sulfate 90 mcg/actuation 1 - 2 puff inhalation .EVERY 4-6 03/28/25 03/28/25 History aerosol inhaler (Ventolin HFA) HOURS PRN shortness of breath or wheezing Patient History Medical History Hypertension Encounter for pre-operative examination Skin lesion of neck Pre-diabetes HERRERA-inhibitor cough PONV (postoperative nausea and vomiting) Skin lesion of neck Pre-diabetes Hypertension Hyperlipidemia Asthma Surgical History Hx of arthroscopy of left knee Hx of colonoscopy (2017) History of surgery Excision of Left Neck Lesion, 04/02/2024 - Dr. Osborn. Done in clinic under local anesthesia 06/23/24-Removal of left-sided post auricular lesion-Dr. 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 History of back surgery Lumbar History of appendectomy Family History Uncle Coronary heart disease Aunt Coronary heart disease Father Coronary heart disease Diabetes Hypertension Social History Smoking Status: Never smoker Second Hand Exposure: No; Do You Dip or Chew Tobacco: No; Hx Alcohol Use: No Hx Substance Use: No Preferred Language: Irish Communication Ability: Effective Corn Cooker Required: No Beliefs That Will Affect Care: None marital status: Current Living Situation: Spouse current occupational status: employed current occupation: [employer] How many Children do You have: 3 Other Information That Helps Us Care for You: No Feels Safe at Home: Yes Safety Concerns: Feels Safe At This Time Childhood Exposure to Second-Hand Smoke: No Diet: regular caffeine: Yes Dental Care, Regularly: No Physical Activity Frequency: Daily Seatbelt Use: always Sunscreen Use: No Assistive Devices: Glasses Physical Exam Physical Exam: In general this is a well-developed well-nourished white male in no acute distress. HEENT exam is negative. Neck reveals normal carotid upstrokes without bruits. Jugular venous pressure is flat at 90. There is no thyromegaly. Cardiovascular exam reveals a regular rhythm with a normal S1 and S2. No S3, S4, or murmurs are noted. Lungs are clear without rales, rhonchi, or wheezes. Abdomen is soft without bruits. Extremities reveal intact radial artery and posterior tibial pulses bilaterally. There is no peripheral edema. Results & Data Vital Signs (Past 12 Hours) Vital Signs Temp Pulse Pulse Resp BP BP Pulse Ox 03/29/25 07:10 60 03/29/25 07:09 67 18 118/75 99 03/29/25 05:22 95 H 18 100/56 L 92 03/29/25 05:16 36.4 C L 56 L 14 121/75 96 03/29/25 01:22 56 L 18 118/69 95 03/29/25 01:22 03/28/25 23:52 120/69 03/28/25 23:51 75 15 94 03/28/25 23:45 76 18 94 03/28/25 23:43 117/84 03/28/25 23:40 110/72 03/28/25 23:39 77 16 96 03/28/25 23:19 72 18 120/86 93 03/28/25 23:14 74 18 121/77 92 03/28/25 23:12 76 03/28/25 23:09 81 18 113/83 95 03/28/25 23:04 72 16 120/75 99 Pulse Ox O2 Del Method O2 Del Method 03/29/25 07:10 03/29/25 07:09 Room Air 03/29/25 05:22 Room Air 03/29/25 05:16 Room Air 03/29/25 01:22 Room Air 03/29/25 01:22 95 Room Air 03/28/25 23:52 03/28/25 23:51 Room Air 03/28/25 23:45 Room Air 03/28/25 23:43 03/28/25 23:40 03/28/25 23:39 Room Air 03/28/25 23:19 Room Air 03/28/25 23:14 Room Air 03/28/25 23:12 03/28/25 23:09 Room Air 03/28/25 23:04 Room Air Laboratory Results CBC is normal. Electrolytes note a sodium of 141, potassium 3.9, chloride 103, bicarb 25, BUN 21, creatinine 1.7, and a glucose of 159. High-sensitivity troponin is 121. TSH is normal at 3.34. Diagnostic Findings Echocardiogram notes a mildly dilated left ventricle with mild to moderate dysfunction. Left ventricular ejection fraction is 35 to 40%. There is mild to moderate global hypokinesis. Mild mitral digitation. Compared with the study performed in January 2025, no significant change. EKG on presentation noted an SVT at 182 bpm. Chest x-ray is normal. PG Care Time/CCT Total # of Minutes Spent Total Time Spent with Patient: Total time spent is greater than 50% in coordination of care (as documented) at patient's floor/unit and/or counseling patient: Coding Level of Care Code 29245 IN/OBS CONSULT LVL 4,60M Diagnoses SVT (supraventricular tachycardia) I47.10 Coronary artery disease involving [place] coronary artery of [place] heart without angina pectoris I25.10 Coronary Disease-Associated Artery/Lesion type: [place] artery [place] vs. transplanted heart: levelock heart Associated angina: without angina Dilated cardiomyopathy I42.0 Cardiomyopathy type: dilated (2) CAD (coronary artery disease) Coronary Disease-Associated Artery/Lesion type: [place] artery [place] vs. transplanted heart: [place] heart Associated angina: without angina Qualified Code(s): I25.10 - Atherosclerotic heart disease of [place] coronary artery without angina pectoris (3) Cardiomyopathy Cardiomyopathy type: dilated Qualified Code(s): I42.0 - Dilated cardiomyopathy
--- NOTE | 2025-03-29 11:51 | Discharge Summary ---
Discharge Summary Date of Service March 29, 2025 Principal Dx & Hospital Course #1 = Principal Diagnosis (1) SVT (supraventricular tachycardia): (2) Hypertension: (3) Hyperlipidemia: Plan 60-year-old male with history of recurrent SVT status post ablation at [facility] in November presenting with SVT, required DC cardioversion in ED. #SVTpatient reports increased frequency and duration of SVT over the last several days. He has also been unable to break the rhythm. Patient is currently not on any antiarrhythmic agents adensodine several doses IV followed by DCCV in ED which broke the SVT -no recurrence of SVT overnight but had some wide complex beats up to 14 beats on tele -TTE was unchanged from prior: EF 35-40%, global LV hypokinesis -consulted cardiology and discussed with Dr. Gamez. He discussed with MANOLO. OK to discharge home and resume 200 mg po daily. Not needing loading dose because was on through a few mo ago. -cardiology clinic arranging follow up with Dr. Eckert at [facility] for another ablation procedure #Cardiomyopathywell compensated Continue Jardiance Continue Entresto #Asthma/COPD Continue Trelegy Albuterol as needed #Hyperlipidemia Continue Crestor Notes For Next Care Provider Referring to Dr. Eckert at [facility] for another ablation procedure Medication Changes From Visit Resumed amiodarone 200 mg daily Admission HPI Per Admitting Provider Josh Payton is a 60-year-old male with history of cardiomyopathy, hypertension, hyperlipidemia, SVT status post multiple ablations presenting SVT. Patient had an ablation performed at [facility] on 12/15/[address] Eckert. He is currently not on any antiarrhythmic agents. no beta- blockershas experienced bradycardia in the past. Since his ablation, patient has had multiple episodes of tachycardia/SVT. His keeps excellent records and reports SVT on February 03, February 27, March 06, March 27 and March 28. These episodes were short-lived and patient was able to break them with vagal maneuvers at home including blowing into a syringe, leg lifts and ice. Last night he was at camp when he felt sudden onset of palpitations. This episode lasted approximately 3-1/2 hours. He went to [facility] and the rhythm converted to sinus on its own while he was on his way to the hospital. He did have a workup there that was largely unremarkable. This evening patient finished dinner. Around 20:25 he sat down to eat some strawberries when he had recurrence of tachycardia and palpitations. He again tried to break the rhythm with vagal maneuvers but was unable to do so. His insisted that he come to the emergency room for further evaluation given the increased frequency and duration of his SVT over the last several days. Patient reports that the episodes feel the same. He denies chest pain, shortness of breath, dizziness, syncope. No report of orthopnea, weight gain or edema. No fevers, chills, abdominal pain, nausea, vomiting, diarrhea. No additional complaints at this time. Upon arrival to the ER patient markedly tachycardic at 200 bpm. Chemical conversion attempted with adenosine 6 mg +12 mg +12 mg IV, unsuccessful. Patient then underwent cardioversion at 200 J with return to sinus rhythm. Upon review of additional strips, concern for wide-complex tachycardia, possible episodes of nonsustained V. tach. Discharge Exam Last 24h vitals reviewed GEN: no acute distress, sitting in bed HEENT: pupils equal, sclerae anicteric, moist MM RESP: normal WOB, CTAB CV: reg no mrg ABD: soft/nt/nd +BT : no plunkett SKIN: warm and dry, no generalized rashes NEURO: AOx person, place, and situation. Face symmetric, speech normal, moves 4 ext spontaneously and equally Discharge Plan Discharge Items Patient Disposition: Home - Self-Care Reason For Visit: SVT S/P CARDIOVERSION, EPISODES OF [place] Discharge Diagnosis: SVT Condition on Discharge: Good Activity: Resume your previous activity Non-emergency contact: Primary Care Provider and Poultry Process Worker Call non-emergency contact if: you have any medication questions and your symptoms worsen Follow-up/Referrals: Noe Gallegos, [Primary Care Provider] - Diet: Low Sodium (2gm) Addtl Attending Provider Instructions: You were treated for SVT and needed cardioversion Cardiology recommended starting amiodarone to help keep you in normal rhythm The cardiology clinic will reach out to Dr. Eckert's office about scheduling follow up because you probably need another ablation procedure It was a pleasure taking care of you in the hospital, Carmina Oates MD Pending Studies at Discharge: No Stand-Alone Forms: My [facility], Smoking Cessation Medications and DC Order Prescriptions: Continued Jardiance 10 mg tablet 10 mg PO DAILY Qty: 90 3RF Entresto 49-51 mg tablet 1 tab PO BID Qty: 180 3RF amiodarone 200 mg tablet 200 mg PO DAILY Qty: 30 3RF rosuvastatin 10 mg tablet 10 mg PO QAM Qty: 90 3RF albuterol sulfate [Ventolin HFA] 90 mcg/actuation HFA aerosol inhaler 1 - 2 puff inhalation .EVERY 4-6 HOURS PRN (Reason: shortness of breath or wheezing) No Action fluticasone furoate-vilanterol [Breo Ellipta] 100-25 mcg/dose blister with device 1 inh inhalation DAILY Qty: 60 4RF Rx Instructions: rinse mouth with water after each use Discharge Orders: Discharge Order (Routine); Ordered 03/29/25 Ordered By: Carmina Oates Admission Data Admit Date/Time: 03/29/25 00:12 Attending Provider: Carmina Oates Admit Provider: Colleen Henry Primary Care Provider: Noe Gallegos Other Providers: Ang Gamez; Colleen Henry Other Interventions: Discharge Summary Assessment (RN) Last Done: 03/29/25 11:59 Hospital Stay Data Consultations 03/28/25 23:21 ED Decision to Admit Stat 03/29/25 00:12 Consult Cardiology Routine Pending Results Patient Have Any Pending Studies at Discharge: No Discharge Instructions Given to Patient (Per Discharging Provider) You were treated for SVT and needed cardioversion Cardiology recommended starting amiodarone to help keep you in normal rhythm The cardiology clinic will reach out to Dr. Eckert's office about scheduling follow up because you probably need another ablation procedure It was a pleasure taking care of you in the hospital, Carmina Oates MD Total Time Total Time Spent Total Time Spent (In Minutes): <30 Coding Level of Care Code 18427 IN/OBS DISCH 30 MIN/LESS Diagnoses SVT (supraventricular tachycardia) I47.10 Hypertension I10 Hyperlipidemia E78.5
[2025-03-29 12:08] VITALS: BP 115/87; PULSE 65; RESP 22; O2SAT 96
--- NOTE | 2025-03-29 12:41 | Electrocardiogram Report ---
Test Reason : Blood Pressure : */* mmHG Vent. Rate : 182 BPM Atrial Rate : * BPM P-R Int : * ms QRS Dur : 94 ms QT Int : 270 ms P-R-T Axes : * 163 -52 degrees QTcB Int : 469 ms Suspect arm lead reversal, interpretation assumes no reversal Supraventricular tachycardia Lateral infarct , age undetermined Inferior infarct , age undetermined Marked ST abnormality, possible anterior subendocardial injury Abnormal ECG When compared with ECG of 16-Nov-2024 02:48, Significant changes have occurred Confirmed by Ang Gamez ([id number]) on 03/29/2025 12:40:52 PM Referred By: REFERRED SELF Confirmed By: Ang Gamez
--- NOTE | 2025-03-30 10:38 | Electrocardiogram Report ---
Test Reason : Blood Pressure : */* mmHG Vent. Rate : 95 BPM Atrial Rate : 96 BPM P-R Int : 182 ms QRS Dur : 96 ms QT Int : 352 ms P-R-T Axes : -4 -13 -34 degrees QTcB Int : 442 ms Sinus rhythm with frequent , and consecutive Premature ventricular complexes Inferior infarct (cited on or before 28-Mar-2025) Abnormal ECG When compared with ECG of 28-Mar-2025 22:20, QRS axis Shifted left Criteria for Lateral infarct are no longer Present Questionable change in initial forces of Inferior leads T wave inversion no longer evident in Lateral leads Confirmed by Ang Gamez ([id number]) on 03/30/2025 10:37:58 AM Referred By: REFERRED SELF Confirmed By: Ang Gamez
== END 2025-03-29 12:05 | disposition home or self-care (01) | DRG 309 ==
LOC: ED 22:08 → EDINP 03-29 00:12 → SUATTDRO 03-29 00:12 → EDINP 03-29 01:08